=== PATIENT | female | born 1955 | race Caucasian/White ===

== ENCOUNTER → 2017-01-05 | Outpatient (CLI) | payer OTHER ==
[2017-01-05 10:29] LABS: CH 27.8; CHCM 31.5; HCT 45.2 % (34.0-46.0); HDW 2.41; MCH 27.4 pg (25.0-35.0); MCHC 30.9 g/dL (31.0-37.0); MCV 88.7 fL (80.0-100.0); Mean Platelet Volume 7.4; RBC 5.09 m/uL (3.80-5.40); RDW 13.4 % (11.5-15.5); WBC 6.9 k/uL (3.8-10.6)
[2017-01-05 10:53] LABS: ALT 122 U/L (9-52); AST 63 U/L (14-36); Alkaline Phosphatase 168 U/L (38-126); Anion Gap 12 mmol/L; Blood Urea Nitrogen 10 mg/dL (7-17); Carbon Dioxide 26 mmol/L (22-30); Chloride 106 mmol/L (98-107); Cholesterol 233 mg/dL (<200); Glucose 151 mg/dL (74-99); HDL Cholesterol 51 mg/dL (40-60); Non-African American GFR(MDRD) >60 (>60 ml/min/1.73 sqM); Potassium 3.8 mmol/L (3.5-5.1); Sodium 144 mmol/L (137-145); Total Bilirubin 0.3 mg/dL (0.2-1.3); Total Protein 7.1 g/dL (6.3-8.2)
[2017-01-05 12:35] LABS: Hemoglobin A1C 6.9 % (4.2-6.1)
== END ==
LOC: LABWHC1 10:12
PROVIDERS: ATTEND Family Medicine
DX: E66.3 Overweight (principal); E56.9 Vitamin deficiency, unspecified
CPT/HCPCS: 36415; 80053; 80061; 82306; 82626; 83036; 84403; 84443; 85027

== ENCOUNTER 2021-09-18 12:55 | Inpatient (IN) | payer OTHER ==
[2021-09-18] MEDS ORDERED: DEXAMETHASONE SOD PHOSPHATE 4 MG/ML 1 ML VIAL IV ONE (13:20)
[2021-09-18] MEDS ORDERED: ONDANSETRON 4 MG/2 ML VIAL IVP ONE ×2 (13:20→17:03)
[2021-09-18] MEDS ORDERED: LACTATED RINGERS 1,000 ML IV ONE ×2 (13:42→16:01)
[2021-09-18] MEDS ORDERED: hydrALAZINE HCL 20 MG/ML 1 ML VIAL IVP ONE (14:03)
[2021-09-18] MEDS ORDERED: NALOXONE 0.4 MG/ML 1 ML VIAL IV PRN (14:17)
[2021-09-18 14:18] LABS: African American GFR (CKD) >90 (>60 ml/min/1.73 sqM); Anion Gap 9 mmol/L; Blood Urea Nitrogen 13 mg/dL (7-17); Calcium 9.3 mg/dL (8.4-10.2); Carbon Dioxide 25 mmol/L (22-30); Chloride 105 mmol/L (98-107); Glucose 101 mg/dL (74-99); Non-African American GFR(CKD) >90 (>60 ml/min/1.73 sqM); Potassium 4.2 mmol/L (3.5-5.1); Sodium 139 mmol/L (137-145)
[2021-09-18 14:27] LABS: Basophils % (A) 1 %; Eosinophils # (A) 0.1 k/uL (0-0.7); Eosinophils % (A) 1 %; HCT 39.8 % (34.0-46.0); HGB 12.5 gm/dL (11.4-16.0); Lymphocytes # (A) 1.9 k/uL (1.0-4.8); Lymphocytes % (A) 24 %; MCH 28.5 pg (25.0-35.0); MCHC 31.5 g/dL (31.0-37.0); MCV 90.6 fL (80.0-100.0); Mean Platelet Volume 7.6; Monocytes # (A) 0.4 k/uL (0-1.0); Monocytes % (A) 5 %; Neutrophils # (A) 5.5 k/uL (1.3-7.7); Neutrophils % (A) 68 %; Platelet Count 192 k/uL (150-450); RDW 13.1 % (11.5-15.5); WBC 8.1 k/uL (3.8-10.6)
[2021-09-18] MEDS ORDERED: HYDROmorphone 0.2 MG/1 ML SYRINGE IVP PRN (14:28)
[2021-09-18] MEDS ORDERED: MAGNESIUM HYDROXIDE 2,400 MG/10 ML CUP PO PRN (14:28)
[2021-09-18] MEDS ORDERED: HYDROmorphone 0.5 MG/0.5 ML SYRINGE IVP PRN (14:28)
[2021-09-18] MEDS ORDERED: ROCURONIUM 10 MG/ML (5 ML VIAL) IV ONE (15:00)
[2021-09-18] MEDS ORDERED: SUCCINYLCHOLINE CHLORIDE 100 MG/5 ML SYR IV ONE (15:00)
[2021-09-18] MEDS ORDERED: GLYCOPYRROLATE 0.2 MG/ML 2 ML VIAL ONE (15:00)
[2021-09-18] MEDS ORDERED: PROPOFOL 10 MG/ML 20 ML VIAL IV ONE (15:00)
[2021-09-18] MEDS ORDERED: LIDOCAINE 1% INJ 10MG/ML (20 ML MDV) ONE (15:00)
[2021-09-18] MEDS ORDERED: fentaNYL (PF) 50 MCG/ML 2 ML AMP ONE (15:00)
[2021-09-18] MEDS ORDERED: MIDAZOLAM 2 MG/2 ML VIAL ONE (15:00)
[2021-09-18] MEDS ORDERED: NEOSTIGMINE 1 MG/ML 10 ML VIAL ONE (15:00)
[2021-09-18] MEDS ORDERED: PHENYLEPHRINE-0.9% NACL SYG 1,000 MCG/10 ML SYRINGE ONE (15:00)
[2021-09-18] MEDS ORDERED: KETAMINE 10 MG/ML 20 ML VIAL ONE (15:00)
--- NOTE | 2021-09-18 16:37 | P.OP ---
Date of Procedure: 09/18/21 Preoperative Diagnosis: Pathologic fracture left intratrochanteric hip Postoperative Diagnosis: Pathologic fracture left intratrochanteric hip Procedure(s) Performed: Closed intramedullary nailing left hip Implants: [employer] Intertan nail 125, 11.5 mm x 34 cm. [employer] Intertan integrated-interlocking lag screw, 95 mm lag screw, 90 mm compression screw. [employer] L-P screw, 5.0 mm x 35 mm. [employer] L-P screw, 5.0 mm x 32.5 mm. Anesthesia: GETA Surgeon: Lencho Herbert Reel Cart Operator #1: Stacie Dyer Estimated Blood Loss (ml): 300 Pathology: other (Reamings and bone sent for pathologic diagnosis) Condition: stable Disposition: PACU Indications for Procedure: This is a 65-year-old female that presented to my office with pain in her left hip. She has a history of breast cancer which was treated in the past with mastectomy. She has been asymptomatic until she recently fell began having more pain in her left hip. X-rays demonstrate a pathologic fracture of her left intratrochanteric hip. There is also significant disease in her pelvis and proximal femur. After discussing the surgical nonsurgical treatment options with her and her at length, I recommended an intramedullary nailing of her left femur in order to stabilize the fracture as well as sending the pathologic reamings for diagnosis. They're agreeable informed consent was obtained. Operative Findings: The operative findings are consistent with a pathologic fracture of the left proximal femur intertrochanteric region. Description of Procedure: The patient was seen in the preoperative area, consent was reviewed, and the operative site was marked with a skin marker. The surgical procedure was discussed at length with both the patient and the family at the bedside. All questions were answered to the best of my ability. The patient was brought to the operating room and placed on the fracture table. Anesthesia was administered by the anesthesia department. 2 g of Ancef were administered intravenously. The patient was placed supine on the fracture table with the fractured extremity in traction boot. The other extremity was placed in a well leg mathew and the bony prominences were well padded. A universal timeout was then performed which confirmed the patient's name, surgical site, ALLERGIES, and consent. Fracture reduction was performed with a traction and abduction maneuver which was confirmed with fluoroscopy, both AP and lateral views.. After reduction was performed, the extremity was then prepped with ChloraPrep solution and draped in the usual sterile fashion. Utilizing fluoroscopy to identify the tip of the greater trochanter, a 3 cm longitudinal incision was made just proximal to the greater trochanter. Incision was carried through the fascia to the tip of the greater trochanter. Utilizing a curved awl, the entry point was created at the tip of the greater trochanter and centralized in the AP and lateral planes. These locations were confirmed by fluoroscopy. A guidewire was then inserted down the medullary canal. The length of the nail was then measured off the guidewire. Sequentially reaming of the femur was performed to 13 mm distally and 17 mm proximally with the channel reamer. The reamings were sent for pathologic diagnosis. After reaming, appropriate size nail was inserted over the guidewire. The nail was inserted to the appropriate depth and the guidewire was removed. Placement of the yamila was confirmed with both AP and lateral fluoroscopic views. The lag screw drill sleeve was placed in the jig and a small skin incision was made on the lateral aspect of the leg and the lag screw drill sleeve was locked into the guide. The 3.2 mm guide pin sleeve was inserted through the lag screw drill sleeve down to bone. A 3.2 mm distally threaded guidewire was inserted through the guide pin sleeve. The guidewire was inserted in the desired position in the femoral head, both anterior and posterior. The lag screw length cage was inserted over the guidepin to the back of the lag screw drill sleeve. Lag screw length was then measured from the cage. Next, the 7.0 mm compression screw starter drill was inserted in the lag screw drill sleeve beneath the guidepin. The compression screw starter drill was advanced under power until it abutted the back and of the lag screw drill sleeve. The 7.0 mm compression screw drill was inserted through the lag screw drill sleeve into the hole created by the compression screw starter drill. This was advanced under fluoroscopy to a depth 5 mm less and the measurement taken for the guidepin. The compression screw drill was removed and the antirotation bar was inserted into the same hole. The 3.2 mm guide pin sleeve was then removed from the drill guide. The lag screw drill was then inserted to a depth that was measured by the lag screw gauge. This was done under fluoroscopy. The lag screw was inserted over the guidewire to the appropriate depth using fluoroscopy. Traction was then released. The antirotation bar was then removed and the compression screw was advanced through the lag screw drill sleeve beneath the lag screw. This was advanced to the appropriate compression was achieved. The proximal drill guide was then removed. Attention was then directed distally for the freehand locking screws. Fluoroscopy was used to locate the incision sites for the distal locking screws. Skin incision was made down to bone. Next, using freehand technique 2 distal locking screws were then placed. Placement of the screws was confirmed with both AP and lateral fluoroscopic x-rays. Final fluoroscopic x-rays that obtained.. The wounds were then irrigated copiously with saline solution. Fascia was closed with 0-Vicryl. Subcutaneous tissues were closed with 2-0 Vicryl and the skin was closed with jeffrey. Sterile dressings were applied. The patient was transported to the recovery room in stable condition. The commissary assistant BRENT Herman was required due the complexity of surgery the need for skilled certified surgical assistant for positioning draping retraction and fracture reduction.
[2021-09-18] MEDS ORDERED: HYDROmorphone 0.5 MG/0.5 ML SYRINGE IVP ONE ×2 (17:16→17:55)
[2021-09-18] MEDS ORDERED: KETOROLAC 15 MG/ML 1 ML VIAL IVP ONE (17:20)
--- NOTE | 2021-09-18 17:23 | XR ---
EXAMINATION TYPE: XR femur LT, FL guidance operating room DATE OF EXAM: 09/18/2021 CLINICAL HISTORY: Hardware placement TECHNIQUE: Fluoroscopic-guided left femur fixation. FINDINGS: Fluoroscopic guidance was provided during the procedure. A total of 1 minute and 40 second s of fluoroscopic time was utilized during the procedure and 4 spot images were acquired. IMPRESSION: As Above.
--- NOTE | 2021-09-18 17:52 | XR ---
EXAMINATION TYPE: XR Femur LT 1 View DATE OF EXAM: 09/18/2021 COMPARISON: NONE HISTORY: Postop TECHNIQUE: 2 views FINDINGS: There are multiple lateral skin jeffrey. There is intramedullary yamila and transverse screw f ixing the intertrochanteric fracture of the left femur. Components are in good position. IMPRESSION: No complicating process seen.
[2021-09-18] MEDS: HYDROcodone/APAP 7.5-325MG 1 EACH TAB PO PRN (19:33)
[2021-09-18] MEDS: SENNOSIDES-DOCUSATE SODIUM 1 EACH TAB PO SCH (20:56)
[2021-09-18] MEDS: HYDROmorphone 0.5 MG/0.5 ML SYRINGE IVP PRN (20:56)
[2021-09-18] MEDS: SODIUM CHLORIDE 0.9% 1,000 ML IV SCH (22:29)
[2021-09-19] MEDS: HYDROmorphone 0.5 MG/0.5 ML SYRINGE IVP PRN ×3 (00:36→21:55)
[2021-09-19] MEDS: ONDANSETRON 4 MG/2 ML VIAL IVP PRN (06:25)
[2021-09-19] MEDS: APIXABAN 2.5 MG TABLET PO SCH ×2 (09:14→20:12)
[2021-09-19 09:16] LABS: Basophils # (A) 0.01 X 10*3/uL (0.00-0.10); Basophils % (A) 0.1 %; Eosinophils # (A) 0 X 10*3/uL (0.04-0.35); Eosinophils % (A) 0 %; HCT 24.8 % (37.2-46.3); HGB 7.4 g/dL (12.0-15.0); Immature Grans, Automated 0.4 %; Lymphocytes # (A) 1.54 X 10*3/uL (0.90-5.00); Lymphocytes % (A) 13.8 %; MCHC 29.8 g/dL (32.0-37.0); MCV 93.9 fL (80.0-97.0); Mean Platelet Volume 10.6 fL (9.5-12.2); Monocytes # (A) 1.15 X 10*3/uL (0.20-1.00); Monocytes % (A) 10.3 %; NRBC Per 100 WBC 0 /100 WBCS (0.0-0.0); Neutrophils # (A) 8.45 X 10*3/uL (1.80-7.70); Neutrophils % (A) 75.4 %; Platelet Count 180 X 10*3/uL (140-440); RBC 2.64 X 10*6/uL (4.10-5.20); RDW 13.2 % (11.5-14.5)
[2021-09-19] MEDS: HYDROcodone/APAP 7.5-325MG 1 EACH TAB PO PRN ×2 (11:16→20:19)
[2021-09-19] MEDS: SODIUM CHLORIDE 0.9% 1,000 ML IV SCH ×2 (11:17→20:14)
--- NOTE | 2021-09-19 12:47 | P.PN ---
Subjective Progress Note Date: 09/19/21 This is a 65-year-old female who is status post intramedullary nailing of the left hip. This is postoperative day #1 and patient is seen and evaluated at bedside today with Dr. Herbert. Patient states that her left hip is sore today and she has not had a chance to work with physical therapy yet. Objective - Vital Signs Vital signs: Vital Signs Temp 99.3 F 09/19/21 12:10 Pulse 102 H 09/19/21 12:10 Resp 16 09/19/21 12:10 BP 99/67 09/19/21 12:10 Pulse Ox 95 09/19/21 04:37 Intake & Output 09/18/21 09/19/21 09/19/21 18:59 06:59 18:59 Intake Total 1250 880 180 Output Total 300 1420 500 Balance 950 -540 -320 Weight 61.2 kg Intake: IV 1250 Intake, IV Titration 880 Amount Sodium Chloride 0.9% 1, 780 000 ml @ 65 mls/hr IV . [id number] [facility] Rx#:[id number] ceFAZolin 2 gm In Sodium 100 Chloride 0.9% 50 ml @ 100 mls/hr IVPB Q8H [facility] Rx#: [id number] Oral 180 Output: Urine 710 500 Post Void Residual 710 Estimated Blood Loss 300 Other: Voiding Method Self-Catheterization - Exam Vital signs are stable. Patient is in no acute distress and is alert and oriented 3. Calf is soft and nontender to palpation. Dressings are intact with mild serosanguineous drainage present. Patient has full foot and ankle mo tion without pain or difficulty. Sensation intact. Neurovascular status and circulatory status are intact. - Labs CBC & Chem 7: 09/19/21 06:11 09/18/21 13:35 Labs: Abnormal Lab Results - Last 24 Hours (Table) 09/18/21 09/19/21 Range/Units 13:35 06:11 WBC 11.20 H (4.50-10.00) X 10*3/uL RBC 2.64 L (4.10-5.20) X 10*6/uL Hgb 7.4 L (12.0-15.0) g/dL Hct 24.8 L (37.2-46.3) % MCHC 29.8 L (32.0-37.0) g/dL Immature Gran # 0.05 H (0.00-0.04) X 10*3/uL Neutrophils # 8.45 H (1.80-7.70) X 10*3/uL Monocytes # 1.15 H (0.20-1.00) X 10*3/uL Eosinophils # 0 L (0.04-0.35) X 10*3/uL Glucose 101 H (74-99) mg/dL Assessment and Plan (1) Pathological fracture of left femur Current Visit: Yes Status: Acute Code(s): M84.452A - PATHOLOGICAL FRACTURE, LEFT FEMUR, INIT ENCNTR FOR FRACTURE SNOMED Code(s): 186354359 Plan: Continue routine postop care and pain control. Continue anticoagulation with Eliquis. 50% weightbearing to the left lower extremity. Appreciate input from internal medicine and oncology. Anticipate discharge home with homecare in the next 24-48 hours.
[2021-09-19] MEDS ORDERED: diphenhydrAMINE 50 MG/ML 1 ML VIAL IVP STA (19:37)
[2021-09-19] MEDS ORDERED: methylPREDNISolone SOD SUCCI 125 MG/2 ML VIAL IV STA (19:37)
[2021-09-19] MEDS ORDERED: FAMOTIDINE 20 MG/2 ML VIAL IV STA (19:37)
--- NOTE | 2021-09-19 19:54 | P.CONS ---
History of Present Illness - Reason for Consult Consult date: 09/19/21 pathological fracture Requesting physician: Lencho Herbert - Chief Complaint lt hip fracture - History of Present Illness Mrs. Pereira is a 65-year-old female patient who was initially seen in the fall of 2014 by Medical Oncology. She noted a small lump on the inner lower portion of her left breast in the fall of 2013. She did not get it evaluated until 01/21 when she noticed that the lump was definitely bigger, there were overlying skin changes as well as inversion of the nipple. Core biopsy, positive for invasive ductal carcinoma. Tumor was felt to be large, concerns for skin involvement. She was referred to Dr. Chen. Patient had mammogram and ultrasound 02/10/15 and was still pending results from that as well as ER/CO/HER-2/yovnne status on biopsy when seen. It was recommended that she have staging PET or CT/NMBS but, despite recommendations, patient decided to proceed with immediate surgery with bilateral mastectomy. She had surgery 02/18/15 with no complications. The right breast was negative. The left revealed a 3.5 cm IDC, no nodes detected despite removal of level I axillary contents. She agreed to postop imaging, CT CAP and NM bone scan were negative. Final staging T2 Nx M0. Ultimately she was found to be hormone receptor positive, HER-2 negative, no metastases. Adjuvant chemotherapy was recommended, with posttreatment axillary radiation followed by hormonal manipulation. Patient refused the same and has not followed up with either medical oncology or surgery, last seen 03/24. Patient is presenting with left hip pain, she states that she slipped on the ice 08/09/21. The pain has been persistent. She has been seen by orthopedics and had repair of the hip fracture, specimen sent for evaluation. She denies any weight loss, she had c ovid July 2019, she states she is also in the omicron variant. Patient is a clinical trials nurse, she is looking for staging and a consult of what is happening. She denies any other complaints on a 14 point review of systems. Review of Systems 14 point review of systems is negative except as stated in HPI Past Medical History Past Medical History: Cancer, Deep Vein Thrombosis (DVT), GERD/Reflux Additional Past Medical History / Comment(s): VERTIGO, HX OF DVT'S IN LEGS ( FROM CONTROL PILLS), HX OF KIDNEY STONES, SLIDING HIATAL HERNIA, HEPATITIS A (1989), DIAGNOSED WITH BREAST CANCER 01/2015, HX OF POLYNEPHRITIS & UTIS MULTIPLE TIMES. History of Any Multi-Drug Resistant Organisms: None Reported Past Surgical History: Adenoidectomy, Appendectomy, Hysterectomy, Tonsillectomy Additional Past Surgical History / Comment(s): CATARACT RT EYE, KIDNEY SURG FOR STONES & TORN URETER. , OOPHORECTOMY Past Anesthesia/Blood Transfusion Reactions: Previous Problems w/ Anesthesia, Family History of Problems w/ Anesthesia, Motion Sickness Additional Past Anesthesia/Blood Transfusion Reaction / Comm: STATES "TERRIBLE " NAUSEA AND VOMITING. TRYS TO PULL OUT IV'S AND TUBES AND TRYS TO GET UP AND LEAVE. PTS MOTHER HAS SAME REACTION TO ANESTHESIA. Past Psychological History: No Psychological Hx Reported Past Alcohol Use History: None Reported Past Drug Use History: None Reported - Past Family History Father Family Medical History: CVA/TIA, Hypertension Mother Family Medical History: No Reported History Medications and Allergies Home Medications Medication Instructions Recorded Confirmed Type Ciclopirox Olamine [Loprox 0.77% 1 applic TOPICAL BID 09/19/21 09/19/21 History cream] Esomeprazole Magnesium [NexIUM 20 mg PO DAILY 09/19/21 09/19/21 History 24Hr] Allergies Allergy/AdvReac Type Severity Reaction Status Date / Time Iodinated Contrast Media Allergy Swelling Verified 09/19/21 06:29 [Iodinated Contrast- Oral of face and IV Dye] and lips levofloxacin [From Levaquin] Allergy Swelling Verified 09/19/21 06:29 of face and lips amoxicillin trihydrate AdvReac Nausea & Verified 09/19/21 06:29 [From Augmentin] Vomiting gabapentin AdvReac "I felt Verified 09/19/21 06:29 like I was in a stupor and could not function at all metoclopramide HCl AdvReac Hallucinati Verified 09/19/21 06:29 [From Reglan] ons potassium clavulanate AdvReac Nausea & Verified 09/19/21 06:29 [From Augmentin] Vomiting Physical Exam Vitals: Vital Signs Temp Pulse Pulse Resp BP Pulse Ox 09/19/21 07:52 99 F 101 H 17 102/64 09/19/21 04:37 98.1 F 106 H 16 117/71 95 09/18/21 21:40 91 97/62 100 09/18/21 20:40 100 104/68 100 09/18/21 20:20 99 91/57 100 09/18/21 20:00 18 09/18/21 19:40 98 104/69 100 09/18/21 19:25 98 129/75 100 09/18/21 18:55 97.4 F L 94 18 109/68 99 09/18/21 17:50 78 18 117/55 100 09/18/21 17:35 77 16 119/61 100 09/18/21 17:20 78 16 105/56 100 09/18/21 17:05 80 16 96/55 98 09/18/21 16:50 97.2 F L 81 16 82/44 98 09/18/21 14:29 184/84 09/18/21 13:45 99.0 F 82 18 214/99 99 Intake and Output 09/18/21 09/19/21 09/19/21 22:59 06:59 14:59 Intake Total 650 880 Output Total 300 1420 Balance 350 -540 Intake: IV 650 Intake, IV Titration 880 Amount Sodium Chloride 0.9% 1, 780 000 ml @ 65 mls/hr IV . [id number] [facility] Rx#:[id number] ceFAZolin 2 gm In Sodium 100 Chloride 0.9% 50 ml @ 100 mls/hr IVPB Q8H [facility] Rx#: [id number] Output: Urine 710 Post Void Residual 710 Estimated Blood Loss 300 Other: Voiding Method Self-Catheterization - Constitutional General appearance: average body habitus, cooperative, no acute distress - EENT Eyes: anicteric sclerae, EOMI ENT: hearing grossly normal, normal oropharynx - Neck Neck: lymphadenopathy - Respiratory Respiratory: bilateral: CTA - Cardiovascular Rhythm: regular Heart sounds: normal: S1, S2 Abnormal Heart Sounds: no systolic murmur, no diastolic murmur, no rub, no S3 Gallop, no S4 Gallop, no click, no other leg Peripheral Edema: right: None, left: Trace - Gastrointestinal General gastrointestinal: no absent bowel sounds, no decreased bowel sounds, no distended, no hepatomegaly, no hyperactive bowel sounds, normal bowel sounds, no organomegaly, no rigid, no scaphoid, soft, no splenomegaly, no tenderness, no umbilical hernia, no ventral hernia - Integumentary Integumentary: normal - Neurologic Neurologic: CNII-XII intact - Musculoskeletal left lower extremity hip incision clean, dry, and intact, no unusual bruising, no signs or symptoms of bleeding or infection - Psychiatric Psychiatric: A&O x's 3, appropriate affect, intact judgment & insight Results CBC & Chem 7: 09/19/21 06:11 09/18/21 13:35 Labs: Abnormal Lab Results - Last 24 Hours (Table) 09/18/21 Range/Units 13:35 Glucose 101 H (74-99) mg/dL Assessment and Plan (1) Pathological fracture of left femur Current Visit: Yes Status: Acute Priority: High Code(s): M84.452A - PATHOLOGICAL FRACTURE, LEFT FEMUR, INIT ENCNTR FOR FRACTURE SNOMED Code(s): 059337633 (2) Breast cancer Current Visit: Yes Status: Chronic Priority: High Code(s): C50.919 - MALIGNANT NEOPLASM OF UNSP SITE OF UNSPECIFIED FEMALE BREAST SNOMED Code(s): 669818774 Plan: Pending pathology results from repair of the left hip fracture CT CAP and NM bone scan ordered for restaging. Tumor markers ordered. Consult to Radiation Oncology for post femur fracture radiation Agree with Orthopedics post op anticoagulation Dr. Chen answered all of patient's questions to her satisfaction. We will provide her with the results of metastatic work up and await her decisions. Doctor attests: I performed a history and physical examination of this patient, developed impression and plan of care, discussed with dictator. I agree with dictators note, documented as a scribe.
[2021-09-19] MEDS: SENNOSIDES-DOCUSATE SODIUM 1 EACH TAB PO SCH (20:12)
--- NOTE | 2021-09-19 20:30 | CONS ---
CONSULTATION REASON FOR CONSULTATION: Advice regarding history of DVT and other issues, requested by Orthopedic Surgery. HISTORY OF PRESENT ILLNESS: This 65-year-old woman with a past medical history of DVT and history of GERD was admitted with a pathologic fracture of the left femur. The patient is being followed by multiple consultants. Patient underwent intramedullary nailing. The patient has a history of breast cancer, also. Hemoglobin was found to be 7.4. PAST MEDICAL HISTORY: History of breast cancer, history of DVT. HOME MEDICATIONS: Reviewed. They include Nexium and Loprox. Doses are reviewed. ALLERGIES: Reviewed. ALLERGIES INCLUDE IODINATED CONTRAST DYE. FAMILY HISTORY: No history of heart disease or strokes in the family. SOCIAL HISTORY: No history of smoking. No history of alcohol intake. REVIEW OF SYSTEMS: Fourteen-point review of systems negative except as mentioned earlier. PHYSICAL EXAMINATION: Pulse is 102, blood pressure 99/60, respirations 16. NECK: No jugular venous distention. CARDIOVASCULAR: S1, S2 muffled. RESPIRATION: Clear to auscultation. ABDOMEN: Soft, nontender. LEGS: Status post surgery. NERVOUS SYSTEM: No focal deficit. SKIN: No ulcer, rash, bleeding. JOINTS: No active deforming arthropathy. LABS: Reviewed. ASSESSMENT: 1. Left femur pathologic fracture, status post intramedullary nailing. 2. History of breast cancer. 3. History of deep vein thrombosis. RECOMMENDATIONS AND DISCUSSION: In this 65-year-old woman who presented with multiple medical issues, at this time I recommend to continue the current medications, continue symptomatic treatment. Resume the home medications. DVT prophylaxis. The patient is on Eliquis 2.5 mg p.o. b.i.d. Closely follow with Hematology/Oncology. We will follow the patient closely with you. Repeat labs are recommended. Monitor hemoglobin closely. Thank you, Dr. Herbert, for letting us participate in the care of this patient. MMODL / IJN: [id number] /
[2021-09-20] MEDS: HYDROcodone/APAP 7.5-325MG 1 EACH TAB PO PRN ×2 (06:10→17:35)
[2021-09-20] MEDS: BARIUM SULFATE 450 ML ORAL.SUSP BOTTLE PO PRN ×2 (07:50→11:52)
[2021-09-20] MEDS: APIXABAN 2.5 MG TABLET PO SCH (08:09)
[2021-09-20 10:55] LABS: Acanthocytes 2+; Basophils # (A) 0.03 X 10*3/uL (0.00-0.10); Basophils % (A) 0.3 %; Eosinophils # (A) 0.03 X 10*3/uL (0.04-0.35); Eosinophils % (A) 0.3 %; HCT 21.2 % (37.2-46.3); HGB 6.2 g/dL (12.0-15.0); Immature Grans, Automated 0.5 %; Lymphocytes # (A) 2.24 X 10*3/uL (0.90-5.00); Lymphocytes % (A) 22.2 %; MCH 28.1 pg (27.0-32.0); MCHC 29.2 g/dL (32.0-37.0); MCV 95.9 fL (80.0-97.0); Macrocytosis (M) 2+; Mean Platelet Volume 10.6 fL (9.5-12.2); Monocytes # (A) 1.17 X 10*3/uL (0.20-1.00); Monocytes % (A) 11.6 %; NRBC Per 100 WBC 0 /100 WBCS (0.0-0.0); Neutrophils # (A) 6.59 X 10*3/uL (1.80-7.70); Neutrophils % (A) 65.1 %; Platelet Count 138 X 10*3/uL (140-440); RBC 2.21 X 10*6/uL (4.10-5.20); RDW 13.2 % (11.5-14.5); WBC 10.11 X 10*3/uL (4.50-10.00)
[2021-09-20] MEDS: HYDROmorphone 0.5 MG/0.5 ML SYRINGE IVP PRN (11:00)
[2021-09-20 11:10] LABS: African American GFR (CKD) 98.2 (60.0-200.0); Anion Gap 10.8 mmol/L (10.00-18.00); BUN/Creat Ratio 20.08 Ratio (12.00-20.00); Blood Urea Nitrogen 14.9 mg/dL (9.0-27.0); Calcium 8.1 mg/dL (8.7-10.3); Carbon Dioxide 21.2 mmol/L (20.0-27.5); Non-African American GFR(CKD) 84.7 (60.0-200.0); Potassium 3.8 mmol/L (3.5-5.5)
--- NOTE | 2021-09-20 12:17 | P.PN ---
Subjective Progress Note Date: 09/20/21 Principal diagnosis: Left femur fracture, pathologic. Metastatic breast cancer. This is a 65-year-old female who is status post intramedullary nailing of the left hip. This is postoperative day #2 and patient is seen and evaluated at bedside today.The patient states that her left hip is sore today. She has had quite a bit of drainage from middle incision. The patient has been seen by oncology. Vital signs and labs are stable. Labs reveal that she likely has metastatic breast cancer. Objective - Vital Signs Vital signs: Vital Signs Temp 99.4 F 09/20/21 07:28 Pulse 104 H 09/20/21 07:28 Resp 15 09/20/21 07:28 BP 102/62 09/20/21 07:28 Pulse Ox 93 L 09/20/21 04:41 Intake & Output 09/19/21 09/20/21 09/20/21 18:59 06:59 18:59 Intake Total 1060 Output Total 500 800 450 Balance 560 -800 -450 Intake: Oral 1060 Output: Urine 500 800 450 Other: Voiding Method Self-Catheterization Indwelling Catheter Indwelling Catheter - Exam This is a pleasant 65-year-old female in no acute distress. She is alert and oriented 3. Exam of the left leg reveals significant sanguinous drainage from the mid femoral incision. Her Optifoam dressing is saturated. The proximal and distal incisions have a small amount of drainage. She has full foot and ankle motion without difficulty or pain. Neurovascular status to the lower extremity is intact. - Labs CBC & Chem 7: 09/20/21 06:07 09/20/21 06:07 Labs: Abnormal Lab Results - Last 24 Hours (Table) 09/19/21 Range/Units 06:11 CA 15-3 Antigen 1182.0 H (0.0-32.3) U/mL Assessment and Plan (1) Pathological fracture of left femur Current Visit: Yes Status: Acute Priority: High Code(s): M84.452A - P ATHOLOGICAL FRACTURE, LEFT FEMUR, INIT ENCNTR FOR FRACTURE SNOMED Code(s): 193983760 (2) Breast cancer Current Visit: Yes Status: Chronic Priority: High Code(s): C50.919 - MALIGNANT NEOPLASM OF UNSP SITE OF UNSPECIFIED FEMALE BREAST SNOMED Code(s): 902138518 Plan: The clinical findings are discussed with the patient. The proximal and middle incision dressings are changed today and a compressive dressing is placed. There is very minimal active drainage at this time. If drainage is decreased by tomorrow we may replace with Optifam. Continue current orthopedic care and physical therapy.
[2021-09-20] MEDS: PANTOPRAZOLE 40 MG TABLET PO SCH (14:46)
--- NOTE | 2021-09-20 15:36 | NM ---
EXAMINATION TYPE: NM bone scan whole body DATE OF EXAM: 09/20/2021 COMPARISON: NONE HISTORY: Breast cancer Delayed whole-body scanning was performed following the injection of 23.7 mCi Tc 99m MDP. Images wer e acquired 5 hours post injection. FINDINGS: Extensive multifocal areas of radiotracer uptake are present throughout the axial and appendicular [place] compatible with metastatic disease. Suspicious areas include the following: Mid right humerus diaphysis. Couple of punctate areas within the left humeral diaphysis. Scattered multiple areas of uptake within multiple bilateral ribs. Multip le scattered areas within the upper thoracic lower thoracic upper lumbar spine through the proximal s acrum. Multiple areas within the left greater trochanteric region left hip. Uptake within the acetabu lar regions on the right hip. Multiple punctate areas of calvarial uptake are present suggestive for metastasis. IMPRESSION: 1. Extensive new areas of uptake within the axial and appendicular skeleton discussed above.
--- NOTE | 2021-09-20 15:53 | PN ---
PROGRESS NOTE DATE OF SERVICE: 09/20/2021 This 65-year-old woman who was admitted with left femoral pathologic fracture is awaiting biopsy. Patient has history of breast cancer. CEA is elevated. No chest pain. No palpitations. The patient has some bleeding at the site also. Hemoglobin is 6.2. Transfusion is being arranged. Past medical history reviewed. REVIEW OF SYSTEMS: CARDIOVASCULAR SYSTEM: No angina, palpitations. RESPIRATORY SYSTEM: No cough, hemoptysis. GI: As mentioned earlier. : As mentioned earlier. NERVOUS SYSTEM: No numbness, weakness. CURRENT MEDICATIONS: Reviewed. They include Xanax, [place], Eliquis. Doses and other medications are reviewed. PHYSICAL EXAMINATION: Pulse is 93, blood pressure 170/60, respirations 17. HEENT: Conjunctivae pale. Oral mucosa pale. CARDIOVASCULAR: S1, S2 muffled. RESPIRATION: Breath sounds diminished at the bases. A few scattered rhonchi. ABDOMEN: Soft. LEGS: Left leg swelling and pain with some oozing also present. LABS: Hemoglobin 6.2. Other labs are noted. Platelets are 138. ASSESSMENT: 1. Left femur pathological fracture, status post intramedullary nailing and biopsy. 2. History of breast cancer. 3. History of deep vein thrombosis. 4. Oozing from the surgical site. 5. Anemia, symptomatic. RECOMMENDATIONS AND DISCUSSION: I recommend to continue current medications, continue with the monitoring, symptomatic treatment. I recommend two units transfusion with Lasix 20 after each transfusion. Repeat labs. Closely follow with Hematology/Oncology. Otherwise, hold antiplatelet agents at this time. We will check PT, PTT, INR also. Prognosis is guarded because of multiple complex medical issues. Discussed at length with the patient. MMODL / IJN: [id number] /
[2021-09-20 16:47] LABS: Partial Thromboplastin Time 23.2 sec (22.0-30.0); Prothrombin Time 10.9 sec (9.0-12.0)
--- NOTE | 2021-09-20 17:13 | P.PN ---
Subjective Progress Note Date: 09/20/21 Principal diagnosis: Pathological fracture, history breast cancer In follow-up today patient is noting moderate bleeding from her left lateral hip incision, she states the dressing has been changed 3-4 times and when seen the dressing is saturated. She is denying any other bleeding. She is not complaining of uncontrolled pain. She is being premedicated for iodine allergy for her scans later today. Objective - Vital Signs Vital signs: Vital Signs Temp 99 F 09/20/21 12:10 Pulse 93 09/20/21 12:10 Resp 16 09/20/21 12:10 BP 117/67 09/20/21 12:10 Pulse Ox 93 L 09/20/21 04:41 Intake & Output 09/19/21 09/20/21 09/20/21 18:59 06:59 18:59 Intake Total 1060 240 Output Total 500 800 850 Balance 560 -800 -610 Intake: Oral 1060 240 Output: Urine 500 800 850 Other: Voiding Method Self-Catheterization Indwelling Catheter Indwelling Catheter - Constitutional General appearance: Present: average body habitus, cooperative, no acute distress - EENT Eyes: Present: anicteric sclerae, EOMI ENT: Present: hearing grossly normal - Respiratory Respiratory: bilateral: CTA - Cardiovascular Rhythm: regular Heart sounds: normal: S1, S2 - Gastrointestinal General gastrointestinal: Present: normal bowel sounds, soft - Musculoskeletal Musculoskeletal Comment(s): Left lateral thigh surgical incision dressing is saturated with blood, there is some blood noted on the sheets. Mild swelling, no unrealistic bruising at this time. Musculoskeletal: Present: strength equal bilaterally - Psychiatric Psychiatric: Present: A&O x's 3, appropriate affect, intact judgment & insight - Labs CBC & Chem 7: 09/20/21 06:07 09/20/21 06:07 Labs: Abnormal Lab Results - Last 24 Hours (Table) 09/19/21 09/20/21 09/20/21 Range/Units 06:11 06:07 06:07 WBC 10.11 H (4.50-10.00) X 10*3/uL RBC 2.21 L (4.10-5.20) X 10*6/uL Hgb 6.2 L* (12.0-15.0) g/dL Hct 21.2 L (37.2-46.3) % MCHC 29.2 L (32.0-37.0) g/dL Plt Count 138 L (140-440) X 10*3/uL Plt Count Comment DECREASED A Immature Gran # 0.05 H (0.00-0.04) X 10*3/uL Monocytes # 1.17 H (0.20-1.00) X 10*3/uL Eosinophils # 0.03 L (0.04-0.35) X 10*3/uL BUN/Creatinine Ratio 20.08 H (12.00-20.00) Ratio Calcium 8.1 L (8.7-10.3) mg/dL CA 15-3 Antigen 1182.0 H (0.0-32.3) U/mL Crossmatch 09/20/21 Range/Units 11:17 WBC (4.50-10.00) X 10*3/uL RBC (4.10-5.20) X 10*6/uL Hgb (12.0-15.0) g/dL Hct (37.2-46.3) % MCHC (32.0-37.0) g/dL Plt Count (140-440) X 10*3/uL Plt Count Comment Immature Gran # (0.00-0.04) X 10*3/uL Monocytes # (0.20-1.00) X 10*3/uL Eosinophils # (0.04-0.35) X 10*3/uL BUN/Creatinine Ratio (12.00-20.00) Ratio Calcium (8.7-10.3) mg/dL CA 15-3 Antigen (0.0-32.3) U/mL Crossmatch See Detail Assessment and Plan (1) Pathological fracture of left femur Current Visit: Yes Status: Acute Priority: High Code(s): M84.452A - PATHOLOGICAL FRACTURE, LEFT FEMUR, INIT ENCNTR FOR FRACTURE SNOMED Code(s): 945607937 (2) Breast cancer Current Visit: Yes Status: Chronic Priority: High Code(s): C50.919 - MALIGNANT NEOPLASM OF UNSP SITE OF UNSPECIFIED FEMALE BREAST SNOMED Code(s): 396914820 Plan: Pending pathology results from repair of the left hip fracture. ER/CT/Her2 studies will be performed on specimen CT CAP and NM bone scan ordered for restaging, she is being premedicated for an iodine allergy, scans a little later today Tumor markers ordered. CA-15-3 significantly elevated at 1182. CA-27-29 pending. Consult to Radiation Oncology for post femur fracture radiation. Did discuss case with Dr. Wills Hemoglobin dropped to 6.2 postop, bleeding noted at the incision site. Transfusing 1 unit of packed red blood cells. Did have nursing contact O rthopedics regarding postoperative anticoagulation, they are okay with holding. Eliquis will be held. DVT prophylaxis with heparin will be started. SCDs on. Cont CBC daily. Dr. Chen answered all of patient's questions to her satisfaction. We will provide her with the results as they become available. Doctor attests: I performed a history and physical examination of this patient, developed impression and plan of care, discussed with dictator. I agree with dictators note, documented as a scribe.
[2021-09-20] MEDS: SODIUM CHLORIDE 0.9% 1,000 ML IV SCH (19:03)
--- NOTE | 2021-09-20 19:27 | CT ---
EXAMINATION TYPE: CT ChestAbdPelvis w con DATE OF EXAM: 09/20/2021 COMPARISON: CT dated 03/14/2015 HISTORY: Recurrent breast cancer, restaging CT DLP: 698.6 mGycm Automated exposure control for dose reduction was used. CONTRAST: CT scan of the chest, abdomen and pelvis is performed with Oral Contrast and with IV Contrast, patien t injected with 100 mL of Isovue 300. FINDINGS: LUNGS: Moderate right-sided pleural effusion with complete collapse of the right lower lobe and obstr uction of the right bronchus intermedius. Underlying lesion within the right lower lobe cannot be exc luded. Right midlung zone nodule measuring 7 mm, not appreciated previously. Groundglass opacity and infiltration are seen at the posterior aspect of the right upper lobe. 2 mm nodule is seen in the rig ht lung apex, not appreciated previously. Left lower lobe superior segment 5 mm nodule, not appreciat ed previously. Atelectasis along the left oblique fissure. Minimal left pleural reaction. Patent trac hea and left main bronchus. MEDIASTINUM: Large subcarinal soft tissue lesion measuring 2.5 x 3.3 cm with extension along the ante rior aspect of the [place] as well as the left paratracheal location in the aortopulmonary window. The re is also extension into the right hilum and surrounding the bronchus intermedius causing its obstru ction. This is likely metastatic. Subcentimeter left hilar lymph node. No gross cardiomegaly. Scatter ed arterial atherosclerotic calcifications. No pericardial effusion. Right superior paratracheal lymp h node is also noted measuring 11 mm, not appreciated previously and likely metastatic. Left axillary lymphadenopathy measuring up to 2.2 cm. OTHER: Previous bilateral mastectomy. The esophagus is distended and filled with contrast probably d ue to compression by the described subcarinal mass versus reflux. Scattered lytic and sclerotic areas seen within the thoracic spine, left scapula and left humeral head, sternum as well as ribs likely m etastatic, kindly refer to bone scan results. LIVER/GB: Tiny hypodensity in the left hepatic lobe likely representing a hepatic cyst, appreciated p reviously. No other definite hepatic focal lesion identified. Unremarkable gallbladder. PANCREAS: Small and atrophic. SPLEEN: Stable accessory spleens. Subtle hypodense area at the inferior aspect of the spleen, possibl y artifactual. Otherwise unremarkable spleen. ADRENALS: No significant abnormality is seen. KIDNEYS: Few renal cysts without suspicious features, otherwise unremarkable kidneys. Air and Higgins c atheter are seen within the urinary bladder. BOWEL: Small sliding hiatal hernia, otherwise unremarkable stomach, duodenum and small bowel. No soledad ss colonic abnormality. REPRODUCTIVE ORGANS: Previous hysterectomy. No gross adnexal mass. LYMPH NODES: No greater than 1 cm abdominal or pelvic lymph nodes are appreciated. OSSEOUS STRUCTURES: Extensive osseous lesions are seen in the lumbar spine, pelvic bones and proximal femoral bones, likely metastatic, kindly correlate with bone scan results. OTHER: Extensive arterial atherosclerotic calcifications. Presacral fluid is noted. Left proximal fem oral fixation with adjacent soft tissue swelling, air and reactive fluid likely related to recent steve gical intervention. IMPRESSION: Newly seen scattered lung nodules with large mediastinal and right hilar mass as well as right superior paratracheal and left axillary lymphadenopathy likely representing metastatic disease. Extensive osseous lesions, likely metastatic. No gross metastatic disease seen in the abdomen or the pelvis otherwise. Recommend correlation with bone scan results. Other findings as described above.
[2021-09-20] MEDS: SENNOSIDES-DOCUSATE SODIUM 1 EACH TAB PO SCH (20:03)
[2021-09-20] MEDS: HEPARIN SODIUM,PORCINE/PF 5,000 UNIT/0.5 ML SYRINGE SQ SCH (20:03)
[2021-09-20] MEDS: ALPRAZolam 0.25 MG TAB PO PRN (20:13)
[2021-09-21] MEDS: HYDROcodone/APAP 7.5-325MG 1 EACH TAB PO PRN (04:19)
[2021-09-21] MEDS: SODIUM CHLORIDE 0.9% 1,000 ML IV SCH (04:22)
[2021-09-21] MEDS: HEPARIN SODIUM,PORCINE/PF 5,000 UNIT/0.5 ML SYRINGE SQ SCH ×2 (08:25→21:03)
[2021-09-21] MEDS: PANTOPRAZOLE 40 MG TABLET PO SCH (08:25)
[2021-09-21] MEDS: HYDROmorphone 0.5 MG/0.5 ML SYRINGE IVP PRN ×4 (08:30→21:05)
[2021-09-21 09:35] LABS: African American GFR (CKD) 105.4 (60.0-200.0); Anion Gap 9.5 mmol/L (10.00-18.00); BUN/Creat Ratio 16.71 Ratio (12.00-20.00); Blood Urea Nitrogen 11.7 mg/dL (9.0-27.0); Calcium 8.4 mg/dL (8.7-10.3); Carbon Dioxide 23.5 mmol/L (20.0-27.5); Non-African American GFR(CKD) 90.9 (60.0-200.0)
[2021-09-21 10:23] LABS: Basophils # (A) 0.01 X 10*3/uL (0.00-0.10); Basophils % (A) 0.1 %; Eosinophils # (A) 0.01 X 10*3/uL (0.04-0.35); Eosinophils % (A) 0.1 %; HCT 23.3 % (37.2-46.3); HGB 7.2 g/dL (12.0-15.0); Immature Grans, Automated 0.4 %; Lymphocytes # (A) 2.52 X 10*3/uL (0.90-5.00); Lymphocytes % (A) 20.6 %; MCHC 30.9 g/dL (32.0-37.0); MCV 90.7 fL (80.0-97.0); Mean Platelet Volume 11.1 fL (9.5-12.2); Monocytes # (A) 1.16 X 10*3/uL (0.20-1.00); Monocytes % (A) 9.5 %; NRBC Per 100 WBC 0 /100 WBCS (0.0-0.0); Neutrophils # (A) 8.47 X 10*3/uL (1.80-7.70); Neutrophils % (A) 69.3 %; Platelet Count 162 X 10*3/uL (140-440); RBC 2.57 X 10*6/uL (4.10-5.20); RDW 13.3 % (11.5-14.5); WBC 12.22 X 10*3/uL (4.50-10.00)
--- NOTE | 2021-09-21 10:50 | P.PN ---
Subjective Progress Note Date: 09/21/21 This is a 65-year-old female who is status post intramedullary nailing of the left hip. This is postoperative day #3 and patient is seen and evaluated at bedside today. Patient states that her incision is still draining. Patient states that she was able to walk 15 feet with physical therapy today and states that most of the pain she feels is in the groin. Objective - Vital Signs Vital signs: Vital Signs Temp 98.3 F 09/21/21 07:22 Pulse 89 09/21/21 07:22 Resp 18 09/21/21 07:22 BP 108/66 09/21/21 07:22 Pulse Ox 93 L 09/21/21 07:22 Intake & Output 09/20/21 09/21/21 09/21/21 18:59 06:59 18:59 Intake Total 240 610 Output Total 1050 1600 Balance -810 -990 Intake: Oral 240 300 Blood Product 0 310 Rc As-1 Unit 0 310 [id number] Output: Urine 1050 1600 Uretheral ([place]) 800 Other: Voiding Method Indwelling Catheter Indwelling Catheter - Exam Vital signs are stable. Patient is in no acute distress and is alert and oriented 3. Calf is soft and nontender to palpation. Compressive dressing is clean, dry and intact. Patient has full foot and ankle motion without pain or difficulty. Sensation intact. Neurovascular status and circulatory status are intact. - Labs CBC & Chem 7: 09/21/21 05:48 09/21/21 05:48 Labs: Abnormal Lab Results - Last 24 Hours (Table) 09/20/21 09/20/21 09/20/21 Range/Units 06:07 06:07 11:17 WBC 10.11 H (4.50-10.00) X 10*3/uL RBC 2.21 L (4.10-5.20) X 10*6/uL Hgb 6.2 L* (12.0-15.0) g/dL Hct 21.2 L (37.2-46.3) % MCHC 29.2 L (32.0-37.0) g/dL Plt Count 138 L (140-440) X 10*3/uL Plt Count Comment DECREASED A Immature Gran # 0.05 H (0.00-0.04) X 10*3/uL Monocytes # 1.17 H (0.20-1.00) X 10*3/uL Eosinophils # 0.03 L (0.04-0.35) X 10*3/uL Anion Gap (10.00-18.00) mmol/L BUN/Creatinine Ratio 20.08 H (12.00-20.00) Ratio Calcium 8.1 L (8.7-10.3) mg/dL Crossmatch See Detail 09/21/21 Range/Units 05:48 WBC (4.50-10.00) X 10*3/uL RBC (4.10-5.20) X 10*6/uL Hgb (12.0-15.0) g/dL Hct (37.2-46.3) % MCHC (32.0-37.0) g/dL Plt Count (140-440) X 10*3/uL Plt Count Comment Immature Gran # (0.00-0.04) X 10*3/uL Monocytes # (0.20-1.00) X 10*3/uL Eosinophils # (0.04-0.35) X 10*3/uL Anion Gap 9.50 L (10.00-18.00) mmol/L BUN/Creatinine Ratio (12.00-20.00) Ratio Calcium 8.4 L (8.7-10.3) mg/dL Crossmatch Assessment and Plan (1) Pathological fracture of left femur Current Visit: Yes Status: Acute Priority: High Code(s): M84.452A - PATHOLOGICAL FRACTURE, LEFT FEMUR, INIT ENCNTR FOR FRACTURE SNOMED Code(s): 399984063 Plan: Continue compressive dressing. Change as needed to keep clean and dry. Anticoagulation per internal medicine and oncology. 50% weightbearing to the left lower extremity. Appreciate input from internal medicine and oncology. Anticipate discharge home with homecare in the next 24-48 hours.
[2021-09-21] MEDS: ALPRAZolam 0.25 MG TAB PO PRN (11:43)
--- NOTE | 2021-09-21 13:22 | PN ---
PROGRESS NOTE DATE OF SERVICE: 09/21/2021 This 65-year-old woman who was admitted with left femoral pathological fracture complains of severe pain. Patient also had anemia, possibly blood loss. Patient has significant swelling of the left thigh also. No chest pain. No palpitation. PHYSICAL EXAMINATION: Pulse is 85, blood pressure 130/77, respiratory rate 18. Chest clear to auscultation. Cardiovascular system: S1, S2 normal. Abdomen: Soft, nontender. Legs: Significant swelling of the left thigh. Some pain and tenderness present. Some leakage also present which is addressed. LABS: Hemoglobin 7.2, white count is 12.22. CA15-3 not elevated. ASSESSMENT: 1. Left femoral pathologic fracture status post intramedullary nailing and biopsy. 2. History of breast cancer. 3. History of deep vein thrombosis. 4. Oozing from the surgical site. 5. Anemia symptomatic. RECOMMENDATIONS AND DISCUSSION: I recommend to continue current medications, management and symptomatic treatment. Monitor hemoglobin closely. Adjust the pain management. Closely follow with Orthopedic surgery. Overall prognosis guarded because of multiple complex medical issues. Await biopsy report. Further recommendations to follow. Discussed with the patient at length. See orders. MMODL / IJN: [id number] /
[2021-09-21] MEDS ORDERED: HYDROmorphone 0.5 MG/0.5 ML SYRINGE IVP STA (13:59)
--- NOTE | 2021-09-21 14:19 | P.PN ---
Subjective Progress Note Date: 09/21/21 Principal diagnosis: Pathological fracture, history breast cancer In follow-up today patient is experiencing severe pain post simulation for palliative radiation to repaired pathological fracture. Bleeding from incision is stable on DVT prophylaxis with heparin. Objective - Vital Signs Vital signs: Vital Signs Temp 98.5 F 09/21/21 11:44 Pulse 85 09/21/21 11:44 Resp 18 09/21/21 11:44 BP 130/77 09/21/21 11:44 Pulse Ox 99 09/21/21 11:44 Intake & Output 09/20/21 09/21/21 09/21/21 18:59 06:59 18:59 Intake Total 240 610 Output Total 1050 1600 Balance -810 -990 Intake: Oral 240 300 Blood Product 0 310 Rc As-1 Unit 0 310 [id number] Output: Urine 1050 1600 Uretheral ([place]) 800 Other: Voiding Method Indwelling Catheter Indwelling Catheter Indwelling Catheter - Constitutional General appearance: Present: average body habitus, cooperative, no acute distress - EENT Eyes: Present: anicteric sclerae, edentulous ENT: Present: hearing grossly normal - Respiratory Respiratory: bilateral: CTA - Cardiovascular Rhythm: regular Heart sounds: normal: S1, S2 Abnormal Heart Sounds: Absent: systolic murmur, diastolic murmur, rub, S3 Gallop, S4 Gallop, click, other - Peripheral edema leg Peripheral Edema: right: None, left: Trace - Gastrointestinal General gastrointestinal: Present: normal bowel sounds, soft - Neurologic Neurologic: Present: CNII-XII intact - Musculoskeletal Musculoskeletal Comment(s): LLE slightly weak from pain post op Musculoskeletal: Present: strength equal bilaterally - Psychiatric Psychiatric: Present: A&O x's 3, appropriate affect, intact judgment & insight - Labs CBC & Chem 7: 09/21/21 05:48 09/21/21 05:48 Labs: Abnormal Lab Results - Last 24 Hours (Table) 09/20/21 09/21/21 09/21/21 Range/Units 11:17 05:48 05:48 WBC 12.22 H (4.50-10.00) X 10*3/uL RBC 2.57 L (4.10-5.20) X 10*6/uL Hgb 7.2 L (12.0-15.0) g/dL Hct 23.3 L (37.2-46.3) % MCHC 30.9 L (32.0-37.0) g/dL Immature Gran # 0.05 H (0.00-0.04) X 10*3/uL Neutrophils # 8.47 H (1.80-7.70) X 10*3/uL Monocytes # 1.16 H (0.20-1.00) X 10*3/uL Eosinophils # 0.01 L (0.04-0.35) X 10*3/uL Anion Gap 9.50 L (10.00-18.00) mmol/L Calcium 8.4 L (8.7-10.3) mg/dL Crossmatch See Detail - Imaging and Cardiology CT scan - abdomen: report reviewed CT scan - chest: report reviewed CT scan - pelvis: report reviewed Assessment and Plan (1) Pathological fracture of left femur Current Visit: Yes Status: Acute Priority: High Code(s): M84.452A - PATHOLOGICAL FRACTURE, LEFT FEMUR, INIT ENCNTR FOR FRACTURE SNOMED Code(s): 206105252 (2) Breast cancer Current Visit: Yes Status: Chronic Priority: High Code(s): C50.919 - MALIGNANT NEOPLASM OF UNSP SITE OF UNSPECIFIED FEMALE BREAST SNOMED Code(s): 035983044 Plan: Pending pathology results from repair of the left hip fracture. ER/[place]/Her2 studies will be performed on specimen CT CAP and NM bone scan-mediastinal lymphadenopathy, right hilar mass, left axillary lymphadenopathy and bone metastases confirmed. No disease in the abdomen or pelvis. Dr. Chen discuss this with the patient. CA-15-3 significantly elevated at 1182. CA-27-29 >1800. Patient was simulated today with Radiation Oncology for post pathological femur fracture. Hemoglobin today stable at 7.2 status post U1 unit of blood for hemoglobin of 6.2. Patient is on DVT prophylaxis dose of heparin. SCDs on. Continue to monitor CBC daily. We will likely resume postop anticoagulation with eliquis with once hemoglobin is stable and incisional site has achieved adequate hemostasis Dr. Chen answered all of patient's questions to her satisfaction. F/U out pt for discussion of treatment options. Doctor attests: I performed a history and physical examination of this patient, developed impression and plan of care, discussed with dictator. I agree with dictators note, documented as a scribe.
[2021-09-21] MEDS: SENNOSIDES-DOCUSATE SODIUM 1 EACH TAB PO SCH (21:02)
[2021-09-21] MEDS: AMITRIPTYLINE HCL 25 MG TAB PO SCH (21:02)
[2021-09-22] MEDS: HYDROmorphone 0.5 MG/0.5 ML SYRINGE IVP PRN ×3 (06:22→16:31)
--- NOTE | 2021-09-22 08:11 | P.CONS ---
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 The patient subsequently refused adjuvant therapy including chemotherapy and endocrine therapy. She now presents secondary to severe left hip pain, and was found to have a pathologic fracture requiring IM nail placement. As noted above, the patient was treated with the bilateral mastectomy in 2014 for left-sided breast cancer. She subsequently refused additional adjuvant therapy. She was in her normal state of health until she developed severe left- sided hip pain, primarily radiating to the groin. This was following a slip and fall accident in August. Initially, the patient thought she just had an injury and was ambulating with a cane. When her pain worsened, she presented [facility]. On September 18, the patient was taken to the OR by Dr. Herbert after imaging and there department showed a pathologic fracture involving the left femur. She underwent IM nail placement. Pathology is consistent with metastatic adenocarcinoma, breast primary, ER/FL positive and HER-2 negative. The patient subsequently underwent a bone scan on September 20. This revealed multiple areas of abnormality including the right mid humerus, bilateral ribs, upper and lower thoracic spine, sacrum, calvarium and bilateral hips. A CT scan of the chest, abdomen and pelvis did show a few scattered pulmonary nodules, abnormal mediastinal adenopathy with extensive osseous metastatic disease. There is also note made of a 2 cm left axillary lymph node. At this time, the patient is still having quite a bit of discomfort in the left leg. She states this radiates from the hip and groin down to the knee. She has been able to ambulate but only a short distance with a walker. She is still having quite a bit of oozing from the surgical site. The patient does notice some similar pain now involving the right groin, but it is not nearly as severe as what brought her to the hospital. Review of Systems Constitutional: Denies chills, Denies fever Eyes: denies blurred vision Ears, nose, mouth and throat: Denies headache Cardiovascular: Reports edema (LLE), Denies chest pain Respiratory: Denies cough Gastrointestinal: Denies BRBPR Musculoskeletal: left: hip pain, knee pain Integumentary: Denies rash Neurological: Denies aphasia, Denies confusion, Denies double vision Psychiatric: Denies anxiety Past Medical History Past Medical History: Cancer, Deep Vein Thrombosis (DVT), GERD/Reflux Additional Past Medical History / Comment(s): VERTIGO, HX OF DVT'S IN LEGS ( FROM CONTROL PILLS), HX OF KIDNEY STONES, SLIDING HIATAL HERNIA, HEPATITIS A (1989), DIAGNOSED WITH BREAST CANCER 01/2015, HX OF POLYNEPHRITIS & UTIS MULTIPLE TIMES. History of Any Multi-Drug Resistant Organisms: None Reported Past Surgical History: Adenoidectomy, Appendectomy, Hysterectomy, Tonsillectomy Additional Past Surgical History / Comment(s): CATARACT RT EYE, KIDNEY SURG FOR STONES & TORN URETER. , OOPHORECTOMY Past Anesthesia/Blood Transfusion Reactions: Previous Problems w/ Anesthesia, Family History of Problems w/ Anesthesia, Motion Sickness Additional Past Anesthesia/Blood Transfusion Reaction / Comm: STATES "TERRIBLE " NAUSEA AND VOMITING. TRYS TO PULL OUT IV'S AND TUBES AND TRYS TO GET UP AND LEAVE. PTS MOTHER HAS SAME REACTION TO ANESTHESIA. Past Psychological History: No Psychological Hx Reported Past Alcohol Use History: None Reported Past Drug Use History: None Reported - Past Family History Father Family Medical History: CVA/TIA, Hypertension Mother Family Medical History: No Reported History Medications and Allergies Home Medications Medication Instructions Recorded Confirmed Type Ciclopirox Olamine [Loprox 0.77% 1 applic TOPICAL BID 09/19/21 09/19/21 History cream] Esomeprazole Magnesium [NexIUM 20 mg PO DAILY 09/19/21 09/19/21 History 24Hr] Allergies Allergy/AdvReac Type Severity Reaction Status Date / Time Iodinated Contrast Media Allergy Swelling Verified 09/19/21 06:29 [Iodinated Contrast- Oral of face and IV Dye] and lips levofloxacin [From Levaquin] Allergy Swelling Verified 09/19/21 06:29 of face and lips amoxicillin trihydrate AdvReac Nausea & Verified 09/19/21 06:29 [From Augmentin] Vomiting gabapentin AdvReac "I felt Verified 09/19/21 06:29 like I was in a stupor and could not function at all metoclopramide HCl AdvReac Hallucinati Verified 09/19/21 06:29 [From Reglan] ons potassium clavulanate AdvReac Nausea & Verified 09/19/21 06:29 [From Augmentin] Vomiting Physical Exam Vitals: Vital Signs Temp Pulse Resp BP Pulse Ox 09/22/21 04:20 99.5 F 99 20 121/77 91 L 09/21/21 19:15 98.1 F 95 20 116/68 94 L 09/21/21 11:44 98.5 F 85 18 130/77 99 09/21/21 10:22 89 18 Intake and Output 09/21/21 09/22/21 09/22/21 22:59 06:59 14:59 Intake Total 120 100 Output Total 2000 600 Balance -1880 -500 Intake: Oral 120 100 Output: Urine 1999 600 Uretheral (Higgins) 1000 200 Other: Voiding Method Indwelling Catheter # Voids 2 - Constitutional General appearance: no acute distress - EENT Eyes: EOMI, PERRLA ENT: hearing grossly normal - Neck Neck: no lymphadenopathy - Respiratory Respiratory: bilateral: CTA - Cardiovascular Rhythm: regular - Gastrointestinal General gastrointestinal: no distended, no tenderness - Integumentary Integumentary: no calor, no cellulitis - Neurologic Neurologic: CNII-XII intact - Musculoskeletal Musculoskeletal: no generalized weakness - Psychiatric Psychiatric: A&O x's 3, appropriate affect 2 cm firm palpable left axillary lymph node Results CBC & Chem 7: 09/21/21 05:48 09/21/21 05:48 Labs: Abnormal Lab Results - Last 24 Hours (Table) 09/21/21 09/21/21 Range/Units 05:48 05:48 WBC 12.22 H (4.50-10.00) X 10*3/uL RBC 2.57 L (4.10-5.20) X 10*6/uL Hgb 7.2 L (12.0-15.0) g/dL Hct 23.3 L (37.2-46.3) % MCHC 30.9 L (32.0-37.0) g/dL Immature Gran # 0.05 H (0.00-0.04) X 10*3/uL Neutrophils # 8.47 H (1.80-7.70) X 10*3/uL Monocytes # 1.16 H (0.20-1.00) X 10*3/uL Eosinophils # 0.01 L (0.04-0.35) X 10*3/uL Anion Gap 9.50 L (10.00-18.00) mmol/L Calcium 8.4 L (8.7-10.3) mg/dL CT scan - abdomen: report reviewed, image reviewed CT scan - chest: report reviewed, image reviewed CT Scan - head: report reviewed, image reviewed Assessment and Plan Assessment: The patient is a 65-year-old female initially treated for a stage II (pT2, pNX, M0) 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 The patient subsequently refused adjuvant therapy including chemotherapy and endocrine therapy. She now presents secondary to severe left hip pain, and was found to have a pathologic fracture requiring IM nail placement. She has been found to have widespread bony metastatic disease, as well as lung nodules with mediastinal adenopathy. Plan: 1. Left pathologic femur fracture s/p IM nail placement: I discussed with the patient that I would recommend a course of adjuvant radiotherapy to the left hip. At the same time, the patient has relatively extensive disease involving the right femur and I would recommend concurrent treatment to this area as this is at risk of future pathologic fracture. At this time, the patient is still having quite a bit of postoperative pain, and is having oozing from the surgical site secondary to blood thinner. The patient may potentially be discharged over the weekend, and therefore we did have her come down for CT simulation today. We will however likely give her some additional healing time, and target her treatment start for the following week. I discussed with the patient that typical side effects of radiotherapy include, but are not limited to; fatigue, skin irritation, alteration in bowel habits, and low likelihood of long-term toxicity considering palliative dosing. 2. Metastatic breast cancer: Although she initially refused adjuvant therapy for breast cancer diagnosed in 2014, the patient now does appear willing to undergo hormonal therapy for her metastatic disease. She will continue follow- up with Dr. Chen Time with Patient: Greater than 30
[2021-09-22] MEDS: PANTOPRAZOLE 40 MG TABLET PO SCH (08:17)
[2021-09-22] MEDS: HEPARIN SODIUM,PORCINE/PF 5,000 UNIT/0.5 ML SYRINGE SQ SCH ×2 (08:17→19:20)
[2021-09-22 09:21] LABS: Basophils # (A) 0.01 X 10*3/uL (0.00-0.10); Basophils % (A) 0.1 %; Eosinophils # (A) 0.09 X 10*3/uL (0.04-0.35); HCT 24.8 % (37.2-46.3); HGB 7.4 g/dL (12.0-15.0); Immature Grans, Automated 0.6 %; Lymphocytes # (A) 1.66 X 10*3/uL (0.90-5.00); Lymphocytes % (A) 17.6 %; MCH 27.8 pg (27.0-32.0); MCHC 29.8 g/dL (32.0-37.0); MCV 93.2 fL (80.0-97.0); Mean Platelet Volume 10.7 fL (9.5-12.2); Monocytes # (A) 1.01 X 10*3/uL (0.20-1.00); Monocytes % (A) 10.7 %; NRBC Per 100 WBC 0 /100 WBCS (0.0-0.0); Neutrophils # (A) 6.59 X 10*3/uL (1.80-7.70); Platelet Count 177 X 10*3/uL (140-440); RBC 2.66 X 10*6/uL (4.10-5.20); RDW 13.5 % (11.5-14.5); WBC 9.42 X 10*3/uL (4.50-10.00)
[2021-09-22 09:27] LABS: African American GFR (CKD) 110.9 (60.0-200.0); BUN/Creat Ratio 19.67 Ratio (12.00-20.00); Blood Urea Nitrogen 11.8 mg/dL (9.0-27.0); Calcium 8.2 mg/dL (8.7-10.3); Non-African American GFR(CKD) 95.7 (60.0-200.0); Potassium 3.5 mmol/L (3.5-5.5)
[2021-09-22 12:26] LABS: Prothrombin Time 10.6 sec (9.0-12.0)
[2021-09-22 12:30] LABS: Albumin 2.4 g/dL (3.5-5.0); Albumin/Globulin Ratio 0.9; Bilirubin,Unconjugated 0.5 mg/dL (0.0-1.1); Globulin 2.6 g/dL; Total Bilirubin 0.7 mg/dL (0.2-1.3)
--- NOTE | 2021-09-22 12:35 | P.PN ---
Subjective Progress Note Date: 09/22/21 This is a 65-year-old female who is status post intramedullary nailing of the left hip. This is postoperative day #4 and patient is seen and evaluated at bedside today. Patient reports continued pain in the left groin and leg, especially when she tries to work with therapy. Otherwise, patient denies any new complaints today. Objective - Vital Signs Vital signs: Vital Signs Temp 99.5 F 09/22/21 04:20 Pulse 99 09/22/21 04:20 Resp 20 09/22/21 04:20 BP 121/77 09/22/21 04:20 Pulse Ox 91 L 09/22/21 04:20 Intake & Output 09/21/21 09/22/21 09/22/21 18:59 06:59 18:59 Intake Total 220 Output Total 2600 Balance -2380 Intake: Oral 220 Output: Urine 2600 Uretheral (Higgisn) 1200 Other: Voiding Method Indwelling Catheter Indwelling Catheter Indwelling Catheter # Voids 2 - Exam Vital signs are stable. Patient is in no acute distress and is alert and oriented 3. Calf is soft and nontender to palpation. Compressive dressing is clean, dry and intact. Patient has full foot and ankle motion without pain or difficulty. Sensation intact. Neurovascular status and circulatory status are intact. - Labs CBC & Chem 7: 09/22/21 06:14 09/22/21 06:14 Labs: Abnormal Lab Results - Last 24 Hours (Table) 09/22/21 09/22/21 Range/Units 06:14 06:14 RBC 2.66 L (4.10-5.20) X 10*6/uL Hgb 7.4 L (12.0-15.0) g/dL Hct 24.8 L (37.2-46.3) % MCHC 29.8 L (32.0-37.0) g/dL Immature Gran # 0.06 H (0.00-0.04) X 10*3/uL Monocytes # 1.01 H (0.20-1.00) X 10*3/uL Calcium 8.2 L (8.7-10.3) mg/dL Assessment and Plan (1) Pathological fracture of left femur Current Visit: Yes Status: Acute Priority: High Code(s): M84.452A - PA THOLOGICAL FRACTURE, LEFT FEMUR, INIT ENCNTR FOR FRACTURE SNOMED Code(s): 524320655 Plan: Continue compressive dressing. Change as needed to keep clean and dry. Anticoagulation per internal medicine and oncology. 50% weightbearing to the left lower extremity. Appreciate input from internal medicine and oncology. Anticipate discharge home with homecare when cleared medically.
--- NOTE | 2021-09-22 18:32 | P.PN ---
Subjective Progress Note Date: 09/22/21 Dr. Chen has reviewed pathology of metastatic breast cancer with patient and discussed the plan for treatment as well as goals of care. Objective - Vital Signs Vital signs: Vital Signs Temp 99.5 F 09/22/21 04:20 Pulse 99 09/22/21 04:20 Resp 20 09/22/21 04:20 BP 121/77 09/22/21 04:20 Pulse Ox 91 L 09/22/21 04:20 Intake & Output 09/21/21 09/22/21 09/22/21 18:59 06:59 18:59 Intake Total 220 Output Total 2600 Balance -2380 Intake: Oral 220 Output: Urine 2600 Uretheral (Higgins) 1200 Other: Voiding Method Indwelling Catheter Indwelling Catheter Indwelling Catheter # Voids 2 - Exam - Constitutional General appearance: Present: average body habitus, cooperative, no acute distress - EENT Eyes: Present: anicteric sclerae, edentulous ENT: Present: hearing grossly normal - Respiratory Respiratory: bilateral: CTA - Cardiovascular Rhythm: regular Heart sounds: normal: S1, S2 Abnormal Heart Sounds: Absent: systolic murmur, diastolic murmur, rub, S3 Gallop, S4 Gallop, click, other - Peripheral edema leg Peripheral Edema: right: None, left: Trace - Gastrointestinal General gastrointestinal: Present: normal bowel sounds, soft - Neurologic Neurologic: Present: CNII-XII intact - Musculoskeletal Musculoskeletal Comment(s): LLE slightly weak from pain post op Musculoskeletal: Present: strength equal bilaterally - Psychiatric Psychiatric: Present: A&O x's 3, appropriate affect, intact judgment & insight - Labs CBC & Chem 7: 09/22/21 06:14 09/22/21 06:14 Labs: Abnormal Lab Results - Last 24 Hours (Table) 09/22/21 09/22/21 Range/Units 06:14 06:14 RBC 2.66 L (4.10-5.20) X 10*6/uL Hgb 7.4 L (12.0-15.0) g/dL Hct 24.8 L (37.2-46.3) % MCHC 29.8 L (32.0-37.0) g/dL Immature Gran # 0.06 H (0.00-0.04) X 10*3/uL Monocytes # 1.01 H (0.20-1.00) X 10*3/uL Calcium 8.2 L (8.7-10.3) mg/dL Assessment and Plan Plan: CT scan - abdomen: report reviewed, image reviewed CT scan - chest: report reviewed, image reviewed CT Scan - head: report reviewed, image reviewed Assessment and Plan Assessment: The patient is a 65-year-old female initially treated for a stage II (pT2, pNX, M0) moderately 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 The patient subsequently refused adjuvant therapy including chemotherapy and endocrine therapy. She now presents secondary to severe left hip pain, and was found to have a pathologic fracture requiring IM nail placement. She has been found to have widespread bony metastatic disease, as well as lung nodules with mediastinal adenopathy. Plan: 1. Left pathologic femur fracture s/p IM nail placement: - Dr. Wills has seen and evaluated and planning adjuvant radiation to left hip 2. Neoplastic related Post-operative pain: - Continue supportive care and plan for home regimen 3. Metastatic breast cancer: - Unfortunately she initially refused adjuvant therapy for breast cancer diagnosed in 2014 - the patient now does appear willing to undergo hormonal therapy for her metastatic disease. - Letrazole to begin, may add bone strengther after surgical/radiation intervention is healed Discussed pathology and plan in detail with patient Dr. Perry: I have completed the full history and physical, developed the above impression and plan, agree with dictation, dictated as a scribe.
[2021-09-22] MEDS: AMITRIPTYLINE HCL 25 MG TAB PO SCH (19:20)
[2021-09-22] MEDS: SENNOSIDES-DOCUSATE SODIUM 1 EACH TAB PO SCH (19:20)
[2021-09-23] MEDS: PANTOPRAZOLE 40 MG TABLET PO SCH (07:41)
[2021-09-23] MEDS: HYDROcodone/APAP 7.5-325MG 1 EACH TAB PO PRN ×2 (07:42→19:39)
[2021-09-23 08:51] LABS: Basophils # (A) 0.02 X 10*3/uL (0.00-0.10); Basophils % (A) 0.2 %; Eosinophils # (A) 0.04 X 10*3/uL (0.04-0.35); Eosinophils % (A) 0.5 %; HCT 27.3 % (37.2-46.3); HGB 8.3 g/dL (12.0-15.0); Immature Grans, Automated 0.8 %; Lymphocytes # (A) 1.64 X 10*3/uL (0.90-5.00); Lymphocytes % (A) 18.9 %; MCH 28.4 pg (27.0-32.0); MCHC 30.4 g/dL (32.0-37.0); MCV 93.5 fL (80.0-97.0); Mean Platelet Volume 10.6 fL (9.5-12.2); Monocytes # (A) 0.87 X 10*3/uL (0.20-1.00); NRBC Per 100 WBC 0 /100 WBCS (0.0-0.0); Neutrophils # (A) 6.02 X 10*3/uL (1.80-7.70); Neutrophils % (A) 69.6 %; Platelet Count 212 X 10*3/uL (140-440); RBC 2.92 X 10*6/uL (4.10-5.20); RDW 13.5 % (11.5-14.5); WBC 8.66 X 10*3/uL (4.50-10.00)
[2021-09-23] MEDS: HEPARIN SODIUM,PORCINE/PF 5,000 UNIT/0.5 ML SYRINGE SQ SCH ×2 (10:12→19:40)
[2021-09-23 11:38] LABS: Carbon Dioxide 26.3 mmol/L (20.0-27.5); Potassium 3.6 mmol/L (3.5-5.5)
[2021-09-23 11:39] LABS: Albumin 2.9 g/dL (3.8-4.9); Albumin/Globulin Ratio 1.28 (1.60-3.17); Anion Gap 9.4 mmol/L (10.00-18.00); BUN/Creat Ratio 16.8 Ratio (12.00-20.00); Blood Urea Nitrogen 8.4 mg/dL (9.0-27.0); Calcium 8.2 mg/dL (8.7-10.3); Globulin 2.2 g/dL (1.6-3.3); Magnesium 1.9 mg/dL (1.5-2.4); Non-African American GFR(CKD) 101.8 (60.0-200.0); Total Bilirubin 0.5 mg/dL (0.30-1.20); Total Protein 5.1 g/dL (6.2-8.2)
--- NOTE | 2021-09-23 12:10 | P.PN ---
Progress Note - Text Progress Note Date: 09/23/21 Orthopedics: History of present illness: Patient is a pleasant 65-year-old female who is seen in the bedside for full evaluation for her left hip. She is status post left intramedullary nail fixation for the left hip for pathologic left intertrochanteric hip fracture. Patient states she's not had any significant improvement of her pain overall. She continues to have difficulty with lifting her left lower extremity. She continues to have significant left-sided groin pain. She was able to ambulate with assistance of a walker within her room today. She is currently sitting on a bedside commode. She continues to keep a Higgins catheter intact. She does continues to be seen and examined by multiple medical providers including medicine, oncology, and interventional radiology. She has working with physical therapy. She states she will not be clear for discharge home until a ramp has built at her house. Patient states a family member will be building a ramp tomorrow. She is hoping to be ready for discharge this coming Saturday, 022. She has been eating some food but does not care for the flavor of the food and has not had much of an appetite. She is currently being treated and evaluated for metastatic breast cancer. She is able to perform active range of motion with dorsiflexion and plantar flexion on the left. She denies any calf pain. Dressing has been changes needle left hip. She is not currently experiencing any significant drainage at the left hip. Physical Exam Intramedullary [place] for Intertrochanteric Fracture: Status post surgical day number 5 Patient is examined lying in bed Patient is awake and alert, and oriented 3 Vital signs stable Good chest excursion with deep inspiration and expiration; patient currently on O2 nasal cannula Abdomen soft nontender No signs or symptoms of DVT; no calf pain Lower extremity cuffs in place bilaterally Dressing of the hip is clean, dry, and intact; no erythema, purulence, or signs of infection No pain with palpation over the surgical sites Full range of motion of ankles bilaterally Compression stockings intact bilaterally Dorsiflexion, plantarflexion, and extensor hallucis longus positive sustained bilaterally Capillary refill less than 2 seconds bilateral lower extremities Higgins catheter intact Assessment: Status post left hip intramedullary nail fixation for pathologic left intertrochanteric hip fracture Neoplastic related postoperative pain Left hip pain Left lower extremity weakness Plan: 1. Patient is status post left hip intramedullary nail fixation for pathologic left intertrochanteric hip fracture. She does continue to have significant pain in her left groin and has had some difficulty of pain control. We did discuss she may continue with [place] 7.5 mg/325 mg and/or Dilaudid as prescribed by medicine for pain control. 2. She may continue with 50% weightbearing on the left lower extremity 3. She is encouraged to use a walker to aid in ambulation as needed 4. She is encouraged to continue working with physical therapy increase her mobility and ambulation 5. Continue with compressive dressing over the left hip with dressing changes as needed 6. Patient will continue with anticoagulation per internal medicine and oncology 7. Higgins catheter to be managed by medicine A. Patient states a ramp is currently scheduled to be billed at her house tomorrow. Patient states physical therapy would not clear her for discharge until this ramp is built and that she would have significant difficulty ambulating up the steps into her house. If the patient is able to be cleared by her other multiple medical providers and the ramp is built at her home, we would plan for home as early as this coming 09/25/2021, with home care.
[2021-09-23] MEDS: HYDROmorphone 0.5 MG/0.5 ML SYRINGE IVP PRN (12:18)
[2021-09-23] MEDS: LETROZOLE 2.5 MG TAB PO SCH (17:37)
[2021-09-23] MEDS: SENNOSIDES-DOCUSATE SODIUM 1 EACH TAB PO SCH (19:35)
[2021-09-23] MEDS: AMITRIPTYLINE HCL 25 MG TAB PO SCH (19:40)
--- NOTE | 2021-09-23 21:19 | P.PN ---
Subjective Progress Note Date: 09/22/21 Principal diagnosis: Pathological fracture Left femur Status post intramedullary nailing of left hip History of breast cancer 65-year-old female patient who was initially seen in the fall of 2014 by Medical Oncology. She noted a small lump on the inner lower portion of her left breast in the fall of 2013. She did not get it evaluated until 01/21 when she noticed that the lump was definitely bigger, there were overlying skin changes as well as inversion of the nipple. Core biopsy, positive for invasive ductal carcinoma. Tumor was felt to be large, concerns for skin involvement. She was referred to Dr. Chen. Patient had mammogram and ultrasound 02/10/15 and was still pending results from that as well as ER/NH/HER-2/yvonne status on biopsy when seen. It was recommended that she have staging PET or CT/NMBS but, despite recommendations, patient decided to proceed with immediate surgery with bilateral mastectomy. She had surgery 02/18/15 with no complications. The right breast was negative. The left revealed a 3.5 cm IDC, no nodes detected despite removal of level I axillary contents. She agreed to postop imaging, CT CAP and NM bone scan were negative. Final staging T2 Nx M0. Ultimately she was found to be hormone receptor positive, HER-2 negative, no metastases. Adjuvant chemotherapy was recommended, with posttreatment axillary radiation followed by hormonal manipulation. Patient refused the same and has not followed up with either medical oncology or surgery, last seen 03/24. Patient is presenting with left hip pain, she states that she slipped on the ice 08/09/21. The pain has been persistent. She has been seen by orthopedics and had repair of the hip fracture, specimen sent for evaluation. She denies any weight loss, she had covid July 2019, she states she is also in the omicron variant. Patient is a clinical trials nurse, she is looking for staging and a consult of what is happening. Objective - Vital Signs Vital signs: Vital Signs Temp 99.5 F 09/22/21 04:20 Pulse 99 09/22/21 04:20 Resp 20 09/22/21 04:20 BP 121/77 09/22/21 04:20 Pulse Ox 91 L 09/22/21 04:20 Intake & Output 09/21/21 09/22/21 09/22/21 18:59 06:59 18:59 Intake Total 220 Output Total 2600 Balance -2380 Intake: Oral 220 Output: Urine 2600 Uretheral (Higgins) 1200 Other: Voiding Method Indwelling Catheter Indwelling Catheter Indwelling Catheter # Voids 2 - Exam - Constitutional General appearance: Present: average body habitus, cooperative, no acute distress - EENT Eyes: Present: anicteric sclerae, EOMI, PERRLA, normal appearance ENT: Present: hearing grossly normal, normal oropharynx Ears: bilateral: normal - Neck Neck: Present: normal ROM. Absent: lymphadenopathy, rigidity, thyromegaly Carotids: negative: bruit present Thyroid: bilateral: normal size, negative: enlarged, nodule - Respiratory Respiratory: bilateral: CTA, negative: rales, rhonchi, wheezing - Cardiovascular Rhythm: regular Heart sounds: normal: S1, S2 Abnormal Heart Sounds: Absent: systolic murmur, diastolic murmur - Gastrointestinal General gastrointestinal: Present: normal bowel sounds, soft. Absent: distended, organomegaly, tenderness - Genitourinary Genitourinary Comment(s): deferred - Integumentary Integumentary: Present: normal turgor. Absent: jaundiced, rash, ulcer - Neurologic Neurologic: Present: CNII-XII intact. Absent: focal deficits - Musculoskeletal Musculoskeletal: Present: gait normal, strength equal bilaterally - Psychiatric Psychiatric: Present: A&O x's 3, appropriate affect, intact judgment & insight - Labs CBC & Chem 7: 09/23/21 06:32 09/23/21 06:32 Labs: Abnormal Lab Results - Last 24 Hours (Table) 09/22/21 09/22/21 09/22/21 Range/Units 06:14 06:14 11:57 RBC 2.66 L (4.10-5.20) X 10*6/uL Hgb 7.4 L (12.0-15.0) g/dL Hct 24.8 L (37.2-46.3) % MCHC 29.8 L (32.0-37.0) g/dL Immature Gran # 0.06 H (0.00-0.04) X 10*3/uL Monocytes # 1.01 H (0.20-1.00) X 10*3/uL Calcium 8.2 L (8.7-10.3) mg/dL AST 73 H (14-36) U/L Alkaline Phosphatase 244 H (38-126) U/L Total Protein 5.0 L (6.3-8.2) g/dL Albumin 2.4 L (3.5-5.0) g/dL Assessment and Plan Assessment: 1. Pathological fracture left femur; status post intramedullary nailing of left hip; postoperative day #4 - Orthopedic surgery recommending to continue with compressive dressing change as needed, 50% weightbearing to left lower extremity 2. 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 The patient subsequently refused adjuvant therapy including chemotherapy and endocrine therapy. She now presents secondary to severe left hip pain, and was found to have a pathologic fracture requiring IM nail placement. She has been found to have widespread bony metastatic disease, as well as lung nodules with mediastinal adenopathy. - the patient now does appear willing to undergo hormonal therapy for her metastatic disease. - Letrazole to begin, may add bone strengther after surgical/radiation inte rvention is healed 3. Malignancy related to postoperative pain; continue with current pain regimen 4. Debility; patient has been evaluated by physical therapy and is recommended home health care; likely discharge on 09/25/2021 DVT prophylaxis; SCDs CODE STATUS; full code
--- NOTE | 2021-09-23 21:22 | P.PN ---
Subjective Progress Note Date: 09/23/21 Principal diagnosis: Pathological fracture Left femur Status post intramedullary nailing of left hip History of breast cancer 65-year-old female patient who was initially seen in the fall of 2014 by Medical Oncology. She noted a small lump on the inner lower portion of her left breast in the fall of 2013. She did not get it evaluated until 01/21 when she noticed that the lump was definitely bigger, there were overlying skin changes as well as inversion of the nipple. Core biopsy, positive for invasive ductal carcinoma. Tumor was felt to be large, concerns for skin involvement. She was referred to Dr. Chen. Patient had mammogram and ultrasound 02/10/15 and was still pending results from that as well as ER/ID/HER-2/yvonne status on biopsy when seen. It was recommended that she have staging PET or CT/NMBS but, despite recommendations, patient decided to proceed with immediate surgery with bilateral mastectomy. She had surgery 02/18/15 with no complications. The right breast was negative. The left revealed a 3.5 cm IDC, no nodes detected despite removal of level I axillary contents. She agreed to postop imaging, CT CAP and NM bone scan were negative. Final staging T2 Nx M0. Ultimately she was found to be hormone receptor positive, HER-2 negative, no metastases. Adjuvant chemotherapy was recommended, with posttreatment axillary radiation followed by hormonal manipulation. Patient refused the same and has not followed up with either medical oncology or surgery, last seen 03/24. Patient is presenting with left hip pain, she states that she slipped on the ice 08/09/21. The pain has been persistent. She has been seen by orthopedics and had repair of the hip fracture, specimen sent for evaluation. She denies any weight loss, she had covid July 2019, she states she is also in the omicron variant. Patient is a clinical trials nurse, she is looking for staging and a consult of what is happening. 09/23/2021 Patient is seen and evaluated for follow-up; continues to complain of hip pain and weakness left lower extremity Patient is status post left hip intramedullary nail fixation for pathological left intertrochanteric hip fracture; orthopedic surgery on board and recom mending 50% weightbearing on left lower extremity; patient is recommended to use a walker while ambulating; continue to work with PT/OT with plans to discharge home with home health care Patient has been evaluated by medical oncology; patient will be evaluated by radiation oncology for adjuvant radiation therapy to left hip; patient is not willing to undergo hormonal therapy for her metastatic breast cancer; plan to begin letrozole Objective - Vital Signs Vital signs: Vital Signs Temp 98.3 F 09/23/21 20:21 Pulse 95 09/23/21 20:21 Resp 18 09/23/21 20:21 BP 141/77 09/23/21 20:21 Pulse Ox 93 L 09/23/21 20:21 Intake & Output 09/23/21 09/23/21 09/24/21 06:59 18:59 06:59 Output Total 950 350 Balance -950 -350 Output: Urine 950 350 Other: Voiding Method Indwelling Catheter Indwelling Catheter # Voids 4 - Exam - Constitutional General appearance: Present: average body habitus, cooperative, no acute distress - EENT Eyes: Present: anicteric sclerae, EOMI, PERRLA, normal appearance ENT: Present: hearing grossly normal, normal oropharynx Ears: bilateral: normal - Neck Neck: Present: normal ROM. Absent: lymphadenopathy, rigidity, thyromegaly Carotids: negative: bruit present Thyroid: bilateral: normal size, negative: enlarged, nodule - Respiratory Respiratory: bilateral: CTA, negative: rales, rhonchi, wheezing - Cardiovascular Rhythm: regular Heart sounds: normal: S1, S2 Abnormal Heart Sounds: Absent: systolic murmur, diastolic murmur - Gastrointestinal General gastrointestinal: Present: normal bowel sounds, soft. Absent: distended, organomegaly, tenderness - Genitourinary Genitourinary Comment(s): deferred - Integumentary Integumentary: Present: normal turgor. Absent: jaundiced, rash, ulcer - Neurologic Neurologic: Present: CNII-XII intact. Absent: focal deficits - Musculoskeletal Musculoskeletal: Present: gait normal, strength equal bilaterally - Psychiatric Psychiatric: Present: A&O x's 3, appropriate affect, intact judgment & insight - Labs CBC & Chem 7: 09/23/21 06:32 09/23/21 06:32 Labs: Abnormal Lab Results - Last 24 Hours (Table) 09/23/21 09/23/21 Range/Units 06:32 06:32 RBC 2.92 L (4.10-5.20) X 10*6/uL Hgb 8.3 L (12.0-15.0) g/dL Hct 27.3 L (37.2-46.3) % MCHC 30.4 L (32.0-37.0) g/dL Immature Gran # 0.07 H (0.00-0.04) X 10*3/uL Anion Gap 9.40 L (10.00-18.00) mmol/L BUN 8.4 L (9.0-27.0) mg/dL Creatinine 0.5 L (0.6-1.5) mg/dL Calcium 8.2 L (8.7-10.3) mg/dL AST 118 H (13-35) U/L Alkaline Phosphatase 453 H (41-126) U/L Total Protein 5.1 L (6.2-8.2) g/dL Albumin 2.9 L (3.8-4.9) g/dL Albumin/Globulin Ratio 1.28 L (1.60-3.17) g/dL Assessment and Plan Assessment: 1. Pathological fracture left femur; status post intramedullary nailing of left hip; postoperative day #4 - Orthopedic surgery recommending to continue with compressive dressing change as needed, 50% weightbearing to left lower extremity 2. 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 The patient subsequently refused adjuvant therapy including chemotherapy and endocrine therapy. She now presents secondary to severe left hip pain, and was found to have a pathologic fracture requiring IM nail placement. She has been found to have widespread bony m etastatic disease, as well as lung nodules with mediastinal adenopathy. - the patient now does appear willing to undergo hormonal therapy for her metastatic disease. - Letrazole to begin, may add bone strengther after surgical/radiation intervention is healed 3. Malignancy related to postoperative pain; continue with current pain regimen 4. Debility; patient has been evaluated by physical therapy and is recommended home health care; likely discharge on 09/25/2021 DVT prophylaxis; SCDs CODE STATUS; full code
[2021-09-24] MEDS: HYDROmorphone 0.5 MG/0.5 ML SYRINGE IVP PRN (05:57)
[2021-09-24] MEDS: HEPARIN SODIUM,PORCINE/PF 5,000 UNIT/0.5 ML SYRINGE SQ SCH ×2 (07:59→20:40)
[2021-09-24] MEDS: LETROZOLE 2.5 MG TAB PO SCH (07:59)
[2021-09-24] MEDS: PANTOPRAZOLE 40 MG TABLET PO SCH (07:59)
--- NOTE | 2021-09-24 12:02 | P.PN ---
Progress Note - Text Progress Note Date: 09/24/21 Orthopedics: History of present illness: Patient is a pleasant 65-year-old female who is seen in the bedside for follow- up evaluation for her left hip. She has not had any change in her symptoms since being seen and examined yesterday. She is status post left intramedullary nail fixation for the left hip for pathologic left intertrochanteric hip fracture. Patient states she's not had any significant improvement of her pain overall. She continues to have difficulty with lifting her left lower extremity. She continues to have significant left-sided groin pain. She has been trying to work with physical therapy increase some of her mobility and ambulation. She has been utilizing a walker. She continues to keep a Higgins catheter intact. She does continues to be seen and examined by multiple medical providers including medicine, oncology, and interventional radiology. She states she will not be clear for discharge home until a ramp has built at her house. Patient states a family member will be building a ramp today. She is hoping to be ready for discharge this coming 09/25/2021. She has been eating some food but does not care for the flavor of the food and has not had much of an appetite. She is currently being treated and evaluated for metastatic breast cancer. She is able to perform active range of motion with dorsiflexion and plantar flexion on the left. She denies any calf pain. Dressing remains clean, dry, and intact on her left hip. She is not currently experiencing any significant drainage at the left hip. Physical therapy place her in a pneumatic boot with a side wedge that helps keep her foot and hip from rotating externally and she feels her left hip pain is better controlled since that time. Physical Exam Intramedullary [place] for Intertrochanteric Fracture: Status post surgical day number 6 Patient is examined lying in bed Patient is awake and alert, and oriented 3 Vital signs stable Good chest excursion with deep inspiration and expiration; patient currently on O2 nasal cannula No signs or symptoms of DVT; no calf pain Pneumatic boot intact over the left lower extremity Dressing of the hip is clean, dry, and intact; no erythema, purulence, or signs of infection No pain with palpation over the surgical sites Full range of motion of ankles bilaterally Compression stockings intact bilaterally Dorsiflexion, plantarflexion, and extensor hallucis longus positive sustained bilaterally Capillary refill less than 2 seconds bilateral lower extremities Higgins catheter intact Assessment: Status post left hip intramedullary nail fixation for pathologic left intertrochanteric hip fracture Neoplastic related postoperative pain Left hip pain Left lower extremity weakness Plan: We will continue with our plan as previously set forth. 1. Patient is status post left hip intramedullary nail fixation for pathologic left intertrochanteric hip fracture. She does continue to have significant pain in her left groin and has had some difficulty of pain control. We did discuss she may continue with [place] 7.5 mg/325 mg and/or Dilaudid as prescribed by medicine for pain control. 2. She may continue with 50% weightbearing on the left lower extremity 3. She is encouraged to use a walker to aid in ambulation as needed 4. She is encouraged to continue working with physical therapy increase her mobility and ambulation 5. Continue with compressive dressing over the left hip with dressing changes as needed 6. Patient will continue with anticoagulation per internal medicine and oncology 7. Higgins catheter to be managed by medicine; Higgins could be discontinued from an orthopedic standpoint 8. Patient states a ramp is currently built at her house today. Patient states physical therapy would not clear her for discharge until this ramp is built and that she would have significant difficulty ambulating up the steps into her house. If the patient is able to be cleared by her other multiple medical providers and the ramp is built at her home, we would plan for home as early as this coming 09/25/2021, with home care.
[2021-09-24] MEDS: HYDROcodone/APAP 7.5-325MG 1 EACH TAB PO PRN ×2 (15:59→22:33)
[2021-09-24] MEDS: SENNOSIDES-DOCUSATE SODIUM 1 EACH TAB PO SCH (20:40)
[2021-09-24] MEDS: AMITRIPTYLINE HCL 25 MG TAB PO SCH (20:40)
[2021-09-25] MEDS: HYDROmorphone 0.5 MG/0.5 ML SYRINGE IVP PRN ×3 (07:53→17:25)
[2021-09-25] MEDS: HEPARIN SODIUM,PORCINE/PF 5,000 UNIT/0.5 ML SYRINGE SQ SCH ×2 (07:53→21:00)
[2021-09-25] MEDS: PANTOPRAZOLE 40 MG TABLET PO SCH (07:53)
--- NOTE | 2021-09-25 10:03 | P.PN ---
Subjective Progress Note Date: 09/25/21 This is a 65-year-old female who is status post intramedullary nailing of the left hip. Patient is seen and evaluated at bedside today. Patient states that her pain is slowly improving and the drainage from her incision is less. Patient does report pain in the right groin today. Objective - Vital Signs Vital signs: Vital Signs Temp 98.4 F 09/25/21 04:00 Pulse 85 09/25/21 04:00 Resp 18 09/25/21 04:00 BP 105/63 09/25/21 04:00 Pulse Ox 93 L 09/25/21 04:00 Intake & Output 09/24/21 09/25/21 09/25/21 18:59 06:59 18:59 Intake Total 400 Output Total 1400 Balance -1000 Intake: Oral 400 Output: Urine 1400 Other: Voiding Method Indwelling Catheter Indwelling Catheter # Voids 4 1 # Bowel Movements 1 - Exam Vital signs are stable. Patient is in no acute distress and is alert and oriented 3. Calf is soft and nontender to palpation. Incisions are clean, dry and intact. Patient has full foot and ankle motion without pain or difficulty. Sensation intact. Patient has full active range of motion of the right lower extremity. Neurovascular status and circulatory status are intact. - Labs CBC & Chem 7: 09/23/21 06:32 09/23/21 06:32 Assessment and Plan (1) Pathological fracture of left femur Current Visit: Yes Status: Acute Priority: High Code(s): M84.452A - PATHOLOGICAL FRACTURE, LEFT FEMUR, INIT ENCNTR FOR FRACTURE SNOMED Code(s): 169776292 Plan: Keep incisions clean and dry. Anticoagulation and pain management per internal medicine and oncology. 50% weightbearing to the left lower extremity. Appreciate input from internal medicine and oncology. Anticipate discharge home with homecare when cleared medically.
--- NOTE | 2021-09-25 10:13 | CDI ---
Documentation Clarification Form Date: 09/25/2021 10:05:33 AM From: Elina Muir CCS, CCDS Admit Date: 09/20/2021 04:43:00 PM Patient Name: Sandy Pereira Visit Number: [id number] Discharge Date: ATTENTION: The Clinical Documentation Specialists (CDI) and [facility] Coding Staff appreciate your assistance in clarifying documentation. Please respond to the clarification below the line at the bottom and electronically sign. The CDI & [facility] Coding staff will review the response and follow-up if needed. Please note: Queries are made part of the Legal Health Record. If you have any questions, please contact the author of this message via ITS. Dr. Filiberto Oneill: Per the 09/21 Medical Management Progress Note, the following is documented: Patient also had anemia, possibly blood loss. Additional specificity regarding the Acuity of Anemia is requested. History/Risk Factors per the 09/19 Medical Consult: DVT, GERD, Breast Cancer status post bilateral mastectomy. Clinical indicators: Presented for elective Closed Intramedullary nailing left hip for Pathological fracture of Left Intratrochanteric Hip. Hemoglobin: 09/18 12/5. 09/19: 7.4. 09/20: 6.2. 09/21: 7.2. 09/22: 7.4. 09/23: 8.3 Hematocrit: 09/18: 39.8. 09/19: 24.8. 09/20: 21.2. 09/21: 23.3. 09/22: 24.8. 09/23: 27.3 Treatment: 09/20 Blood Transfusion 1 unit PRBCs. po Protonix, Heparin 5,000 sq q12H Please clarify the Acuity of Anemia: [ ] Acute blood loss anemia [ ] Acute on chronic blood loss anemia [ ] Chronic blood loss anemia [ ] Iron deficiency anemia [ ] Anemia due to malignancy [ ] Unable to determine [ ] Other, please specify (Template Last Revised: July 2020) Anemia due to malignancy MTDD
[2021-09-25 10:36] LABS: Basophils # (A) 0.1 k/uL (0-0.2); Basophils % (A) 1 %; Eosinophils # (A) 0.1 k/uL (0-0.7); Eosinophils % (A) 1 %; HCT 27.6 % (34.0-46.0); Hypochromasia Marked; Lymphocytes # (A) 1.9 k/uL (1.0-4.8); Lymphocytes % (A) 22 %; MCH 28.7 pg (25.0-35.0); MCHC 30.3 g/dL (31.0-37.0); MCV 94.9 fL (80.0-100.0); Mean Platelet Volume 7.6; Monocytes # (A) 0.6 k/uL (0-1.0); Monocytes % (A) 6 %; Neutrophils % (A) 67 %; Platelet Count 338 k/uL (150-450); Poikilocytosis Slight; RBC 2.91 m/uL (3.80-5.40); RDW 14.1 % (11.5-15.5); WBC 8.9 k/uL (3.8-10.6)
[2021-09-25 10:37] LABS: HGB 8.4 gm/dL (11.4-16.0)
[2021-09-25 10:45] LABS: ALT 16 U/L (4-34); AST 48 U/L (14-36); African American GFR (CKD) >90 (>60 ml/min/1.73 sqM); Albumin 2.6 g/dL (3.5-5.0); Albumin/Globulin Ratio 0.9; Alkaline Phosphatase 386 U/L (38-126); Anion Gap 6 mmol/L; Blood Urea Nitrogen 13 mg/dL (7-17); Carbon Dioxide 27 mmol/L (22-30); Chloride 101 mmol/L (98-107); Globulin 2.9 g/dL; Glucose 94 mg/dL (74-99); Non-African American GFR(CKD) >90 (>60 ml/min/1.73 sqM); Potassium 3.7 mmol/L (3.5-5.1); Sodium 134 mmol/L (137-145); Total Protein 5.5 g/dL (6.3-8.2)
[2021-09-25] MEDS: LETROZOLE 2.5 MG TAB PO SCH (10:50)
--- NOTE | 2021-09-25 14:21 | PN ---
PROGRESS NOTE DATE OF SERVICE: 09/25/2021 This 65-year-old woman who was admitted with a hip fracture had intramedullary nailing. The biopsy came back positive as metastatic adenocarcinoma. The bone scan showed multiple metastases. Patient is complaining of severe pain, especially on ambulation, at this time. Radiation Oncology is planning radiation starting from tomorrow. Past medical history reviewed. REVIEW OF SYSTEMS: CARDIOVASCULAR SYSTEM: No angina. RESPIRATION: As mentioned earlier. GI: As mentioned earlier. NERVOUS SYSTEM: Diffusely weak. CURRENT MEDICATIONS: Reviewed. They include [place], Xanax, Elavil. Doses and rest of the medications are also noted. PHYSICAL EXAMINATION: Pulse is 86, blood pressure 124/80, respiration 18. CHEST: Clear to auscultation. CARDIOVASCULAR: S1, S2 muffled. ABDOMEN: Soft, nontender. LEGS: Left leg swelling present. NERVOUS SYSTEM: No focal deficit. LABS: WBC 8.2, hemoglobin is 8.4, sodium 134. ASSESSMENT: 1. Left hip fracture, status post intramedullary nailing. 2. Metastatic breast cancer, adenocarcinoma. 3. Severe pain. 4. Gait dysfunction. 5. Anemia, acute on chronic blood-loss anemia. RECOMMENDATIONS AND DISCUSSION: In this 65-year-old woman who presented with multiple complex medical issues, at this time I recommend to continue the current medications, continue the pain management. I would also recommend DVT prophylaxis. Incentive spirometry. PT/OT evaluation. This patient needs to be hospitalized at this time because of the multiple complex medical issues as well planning of outpatient treatment. I would also recommend evaluation for rehab. Radiation Oncology is pending at this time. The patient informed me that her insurance is not going to cover for the last 3 days. I would somebody the patient to talk to. However, I would recommend strongly continued admission and monitoring of this patient with multiple complex medical issues, especially considering the fact that CT scan of the hip was apparently not sanctioned as an outpatient, and patient has to come back to the ER. Please see the bone scan, which showed extensive metastatic process. Once again, prognosis is extremely guarded because of multiple complex medical issues. Closely follow with multiple consultants. Discussed with the patient and at the bedside. Further recommendations to follow. A copy of this dictation is being forwarded to Dr. Oates, who is the primary physician. MMODL / IJN: [id number] / LAURA
--- NOTE | 2021-09-25 17:07 | P.PN ---
Subjective Progress Note Date: 09/25/21 Principal diagnosis: metastatic Breast Cancer Dr. Chen has reviewed pathology of metastatic breast cancer with patient and discussed the plan for treatment as well as goals of care. Objective - Vital Signs Vital signs: Vital Signs Temp 98.4 F 09/25/21 04:00 Pulse 85 09/25/21 04:00 Resp 18 09/25/21 04:00 BP 105/63 09/25/21 04:00 Pulse Ox 93 L 09/25/21 04:00 Intake & Output 09/24/21 09/25/21 09/25/21 18:59 06:59 18:59 Intake Total 400 Output Total 1400 Balance -1000 Intake: Oral 400 Output: Urine 1400 Other: Voiding Method Indwelling Catheter Indwelling Catheter # Voids 4 # Bowel Movements 1 - Exam - Constitutional General appearance: Present: average body habitus, cooperative, no acute distress - EENT Eyes: Present: anicteric sclerae, edentulous ENT: Present: hearing grossly normal - Respiratory Respiratory: bilateral: CTA - Cardiovascular Rhythm: regular Heart sounds: normal: S1, S2 Abnormal Heart Sounds: Absent: systolic murmur, diastolic murmur, rub, S3 Gallop, S4 Gallop, click, other - Peripheral edema leg Peripheral Edema: right: None, left: Trace - Gastrointestinal General gastrointestinal: Present: normal bowel sounds, soft - Neurologic Neurologic: Present: CNII-XII intact - Musculoskeletal Musculoskeletal Comment(s): LLE slightly weak from pain post op Musculoskeletal: Present: strength equal bilaterally - Psychiatric Psychiatric: Present: A&O x's 3, appropriate affect, intact judgment & insight - Labs CBC & Chem 7: 09/25/21 09:56 09/25/21 09:56 Assessment and Plan Plan: CT scan - abdomen: report reviewed, image reviewed CT scan - chest: report reviewed, image reviewed CT Scan - head: report reviewed, image reviewed Assessment and Plan Assessment: The patient is a 65-year-old female initially treated for a stage II (pT2, pNX, M0) moderately differentiated invasive ductal carcinoma the left breast, ER/[place] positive and HER-2 negative with bilateral mastectomy in 2014. The patient s ubsequently refused adjuvant therapy including chemotherapy and endocrine therapy. She now presents secondary to severe left hip pain, and was found to have a pathologic fracture requiring IM nail placement. She has been found to have widespread bony metastatic disease, as well as lung nodules with mediastinal adenopathy. Plan: 1. Left pathologic femur fracture s/p IM nail placement: - Dr. Wills adjuvant radiation to left hip - Status post left hip intramedullary nail fixation for pathologic left intertrochanteric hip fracture 2. Neoplastic related Post-operative pain: - Continue supportive care and plan for home regimen 3. Metastatic breast cancer: - Unfortunately she initially refused adjuvant therapy for breast cancer diagnosed in 2014 - She apparently was agreeable to hormone therapy however refusing at this time until she speaks with Dr. Chen again - The plan is for Letrazole to begin, may add bone strengther after surgical/radiation intervention is healed Informed Dr. Chen and will await his re-evaluation to discuss Hormone therapy again. Dr. Perry: I have completed the full history and physical, developed the above impression and plan, agree with dictation, dictated as a scribe.
[2021-09-25] MEDS: SENNOSIDES-DOCUSATE SODIUM 1 EACH TAB PO SCH (20:46)
[2021-09-25] MEDS: NYSTATIN 100,000 UNIT/ML SUSP 500,000 UNIT/5 ML CUP PO SCH (21:00)
[2021-09-25] MEDS: HYDROcodone/APAP 7.5-325MG 1 EACH TAB PO PRN (21:01)
[2021-09-25] MEDS: AMITRIPTYLINE HCL 25 MG TAB PO SCH (21:01)
[2021-09-26] MEDS: HYDROmorphone 0.5 MG/0.5 ML SYRINGE IVP PRN ×2 (02:20→09:21)
[2021-09-26] MEDS: PANTOPRAZOLE 40 MG TABLET PO SCH (07:46)
[2021-09-26] MEDS: NYSTATIN 100,000 UNIT/ML SUSP 500,000 UNIT/5 ML CUP PO SCH ×4 (08:29→20:42)
[2021-09-26] MEDS: LETROZOLE 2.5 MG TAB PO SCH (08:44)
[2021-09-26] MEDS: HEPARIN SODIUM,PORCINE/PF 5,000 UNIT/0.5 ML SYRINGE SQ SCH ×2 (08:44→20:42)
[2021-09-26 09:17] LABS: Basophils # (A) 0.02 X 10*3/uL (0.00-0.10); Basophils % (A) 0.3 %; Eosinophils # (A) 0.11 X 10*3/uL (0.04-0.35); Eosinophils % (A) 1.4 %; HCT 24.5 % (37.2-46.3); HGB 7.3 g/dL (12.0-15.0); Lymphocytes # (A) 2.08 X 10*3/uL (0.90-5.00); Lymphocytes % (A) 26.2 %; MCH 27.9 pg (27.0-32.0); MCHC 29.8 g/dL (32.0-37.0); MCV 93.5 fL (80.0-97.0); Mean Platelet Volume 10.1 fL (9.5-12.2); Monocytes # (A) 0.85 X 10*3/uL (0.20-1.00); Monocytes % (A) 10.7 %; NRBC Per 100 WBC 0 /100 WBCS (0.0-0.0); Neutrophils % (A) 60.4 %; Platelet Count 291 X 10*3/uL (140-440); RBC 2.62 X 10*6/uL (4.10-5.20); RDW 13.3 % (11.5-14.5); WBC 7.94 X 10*3/uL (4.50-10.00)
--- NOTE | 2021-09-26 10:04 | P.PN ---
Subjective Progress Note Date: 09/26/21 This is a 65-year-old female who is status post intramedullary nailing of the left hip. Patient is seen and evaluated at bedside today. Patient states that she has been able to do more with physical therapy and her pain has been tolerable. Patient states that she started chemotherapy today. Objective - Vital Signs Vital signs: Vital Signs Temp 98.7 F 09/26/21 08:21 Pulse 90 09/26/21 08:21 Resp 18 09/26/21 08:40 BP 120/68 09/26/21 08:21 Pulse Ox 94 L 09/26/21 08:21 Intake & Output 09/25/21 09/26/21 09/26/21 18:59 06:59 18:59 Intake Total 100 120 Output Total 350 1800 Balance -350 -1700 120 Intake: Oral 100 120 Output: Urine 350 1800 Uretheral ([place]iggins) 900 Other: Voiding Method Indwelling Catheter Indwelling Catheter Indwelling Catheter # Voids 1 - Exam Vital signs are stable. Patient is in no acute distress and is alert and oriented 3. Calf is soft and nontender to palpation. Incisions are clean, dry and intact. No active drainage. Patient has full foot and ankle motion without pain or difficulty. Sensation intact. Patient has full active range of motion of the right lower extremity. Neurovascular status and circulatory status are intact. - Labs CBC & Chem 7: 09/26/21 06:14 09/25/21 09:56 Labs: Abnormal Lab Results - Last 24 Hours (Table) 09/25/21 09/25/21 09/26/21 Range/Units 09:56 09:56 06:14 RBC 2.91 L 2.62 L (3.80-5.40) m/uL Hgb 8.4 L D 7.3 L (11.4-16.0) gm/dL Hct 27.6 L 24.5 L (34.0-46.0) % MCHC 30.3 L 29.8 L (31.0-37.0) g/dL Immature Gran # 0.08 H (0.00-0.04) X 10*3/uL Sodium 134 L (137-145) mmol/L Calcium 8.0 L (8.4-10.2) mg/dL AST 48 H (14-36) U/L Alkaline Phosphatase 386 H (38-126) U/L Total Protein 5.5 L (6.3-8.2) g/dL Albumin 2.6 L (3.5-5.0) g/dL Assessment and Plan (1) Pathological fracture of left femur Current Visit: Yes Status: Acute Priority: High Code(s): M84.452A - PATHOLOGICAL FRACTURE, LEFT FEMUR, INIT ENCNTR FOR FRACTURE SNOMED Code(s): 358406208 Plan: Keep incisions clean and dry. daily dressing changes. Anticoagulation and pain management per internal medicine and oncology. 50% weightbearing to the left lower extremity. Appreciate input from internal medicine and oncology. Anticipate discharge home with homecare when cleared medically.
--- NOTE | 2021-09-26 11:27 | P.PN ---
Subjective Progress Note Date: 09/26/21 Principal diagnosis: Pathological fracture, history breast cancer, recurrent, metastatic breast cancer In follow-up today patient reports mild oozing of blood from incision, no other bleeding to report. Plan is to start XRT next week, she took her 1st dose of letrazole this AM. She does not have SCDs on. Objective - Vital Signs Vital signs: Vital Signs Temp 98.7 F 09/26/21 08:21 Pulse 90 09/26/21 08:21 Resp 18 09/26/21 08:40 BP 120/68 09/26/21 08:21 Pulse Ox 94 L 09/26/21 08:21 Intake & Output 09/25/21 09/26/21 09/26/21 18:59 06:59 18:59 Intake Total 100 120 Output Total 350 1800 Balance -350 -1700 120 Intake: Oral 100 120 Output: Urine 350 1800 Uretheral (Higgins) 900 Other: Voiding Method Indwelling Catheter Indwelling Catheter Indwelling Catheter # Voids 1 - Constitutional General appearance: Present: average body habitus, cooperative, no acute distress - EENT Eyes: Present: anicteric sclerae, EOMI ENT: Present: hearing grossly normal - Respiratory Respiratory: bilateral: CTA - Cardiovascular Rhythm: regular Heart sounds: normal: S1, S2 Abnormal Heart Sounds: Absent: systolic murmur, diastolic murmur, rub, S3 Gallop, S4 Gallop, click, other - Peripheral edema leg Peripheral Edema: right: None, left: Trace - Gastrointestinal General gastrointestinal: Present: normal bowel sounds, soft - Integumentary Integumentary: Present: normal - Neurologic Neurologic: Present: CNII-XII intact - Psychiatric Psychiatric: Present: A&O x's 3, appropriate affect, intact judgment & insight - Labs CBC & Chem 7: 09/26/21 06:14 09/25/21 09:56 Labs: Abnormal Lab Results - Last 24 Hours (Table) 09/26/21 Range/Units 06:14 RBC 2.62 L (4.10-5.20) X 10*6/uL Hgb 7.3 L (12.0-15.0) g/dL Hct 24.5 L (37.2-46.3) % MCHC 29.8 L (32.0-37.0) g/dL Immature Gran # 0.08 H (0.00-0.04) X 10*3/uL Assessment and Plan (1) Pathological fracture of left femur Current Visit: Yes Status: Acute Priority: High Code(s): M84.452A - PATHOLOGICAL FRACTURE, LEFT FEMUR, INIT ENCNTR FOR FRACTURE SNOMED Code(s): 375582048 (2) Breast cancer Current Visit: Yes Status: Chronic Priority: High Code(s): C50.919 - MALIGNANT NEOPLASM OF UNSP SITE OF UNSPECIFIED FEMALE BREAST SNOMED Code(s): 424414545 Plan: Pathology results from repair of the left hip fracture c/w metastatic breast cancer, similar to pt previous. ER 61-70%, NE 0-10%, Her2 IHC-0. Letrazole started. CT CAP and NM bone scan-mediastinal lymphadenopathy, right hilar mass, left axillary lymphadenopathy and bone metastases confirmed. No disease in the abdomen or pelvis. CA-15-3 significantly elevated at 1182. CA-27-29 >1800. F/U with Radiation Oncology for pathological femur fracture. Hemoglobin 7.3 today. Mild oozing persists at surgical site. Patient is on DVT prophylaxis dose of heparin. SCDs ordered to be on if pt is in bed. We will likely resume postop anticoagulation with eliquis with once hemoglobin is stable and incision has achieved adequate hemostasis Dr. Chen answered all of patient's questions to her satisfaction. F/U out pt for discussion of treatment options. Doctor attests: I performed a history and physical examination of this patient, developed impression and plan of care, discussed with dictator. I agree with dictators note, documented as a scribe.
[2021-09-26] MEDS: KETOROLAC 15 MG/ML 1 ML VIAL IVP SCH ×2 (15:12→23:06)
[2021-09-26] MEDS: SENNOSIDES-DOCUSATE SODIUM 1 EACH TAB PO SCH (20:41)
[2021-09-26] MEDS: AMITRIPTYLINE HCL 25 MG TAB PO SCH (20:42)
[2021-09-26] MEDS: HYDROcodone/APAP 7.5-325MG 1 EACH TAB PO PRN (20:43)
--- NOTE | 2021-09-26 22:29 | P.PN ---
Subjective Progress Note Date: 09/26/21 This is a pleasant 65-year-old female was recently admitted under orthopedic services for left hip fracture with intramedullary nailing and is being closely monitored. Patient also had biopsy at that time which came back with metastatic adenocarcinoma. Bone scan did show multiple metastases with oncology following closely as well. Radiation oncology also following with plans for radiation to the site starting next Saturday. Recommend adjusting pain medications as patient continues to report severe pain 10/10 and unable to bear weight on the left lower extremity. Orthopedics to follow and oncology with close outpatient follow up on discharge. Encouraged oral intake and increased activity as tolerated. Patient hemoglobin is 7.3 today and will transfuse 1 unit of PRBC. Recommend repeat labs. Case management to follow for discharge planning needs. Review of systems: Constitutional: reports of fatigue, fever, or chills, reports frustration and anxiety above poor progression and inability to ambulate Cardiovascular: No reports of chest pain or palpitations Respiratory: No reports of shortness of breath or cough GI: No reports of nausea, vomiting, or diarrhea : No reports of dysuria or retention Neurovascular: reports of weakness and left hip shooting stabbing pain with movement and also muscle spasms of the left thigh All medications have been reviewed Active Medications Hydrocodone Bitart/Acetaminophen (Hydrocodone/Apap 7.5-325mg 1 Each Tab) 1 each PO Q6H PRN PRN Reason: Pain Scale 1 to 5 Stop: 10/18/21 14:36 Last Admin: 09/25/21 21:01 Dose: 1 each Documented by: Alprazolam (Alprazolam 0.25 Mg Tab) 0.25 mg PO TID PRN PRN Reason: Anxiety Last Admin: 09/21/21 11:43 Dose: 0.25 mg Documented by: Amitriptyline HCl (Amitriptyline Hcl 25 Mg Tab) 25 mg PO HS ITZ Last Admin: 09/25/21 21:01 Dose: 25 mg Documented by: Cyclobenzaprine HCl (Cyclobenzaprine 5 Mg Tab) 5 mg PO TID PRN PRN Reason: Muscle Spasm Heparin Sodium (Porcine) (Heparin Sodium,Porcine/Pf 5,000 Unit/0.5 Ml Syringe) 5,000 unit SQ Q12HR ITZ Last Admin: 09/26/21 08:44 Dose: 5,000 unit Documented by: Hydromorphone HCl (Hydromorphone 0.5 Mg/0.5 Ml Syringe) 0.5 mg IVP Q3HR PRN PRN Reason: Pain Scale 7 to 10 Stop: 10/18/21 14:29 Last Admin: 09/26/21 09:21 Dose: 0.5 mg Documented by: Ketorolac Tromethamine (Ketorolac 15 Mg/Ml 1 Ml Vial) 15 mg IVP Q8HR [facility] Stop: 09/29/21 12:03 Last Admin: 09/26/21 15:12 Dose: 15 mg Documented by: Letrozole (Letrozole 2.5 Mg Tab) 2.5 mg PO DAILY [facility] Last Admin: 09/26/21 08:44 Dose: 2.5 mg Documented by: Magnesium Hydroxide (Magnesium Hydroxide 2,400 Mg/10 Ml Cup) 2,400 mg PO DAILY PRN PRN Reason: Constipation Stop: 10/18/21 14:29 Last Admin: 09/21/21 11:43 Dose: 2,400 mg Documented by: Naloxone HCl (Naloxone 0.4 Mg/Ml 1 Ml Vial) 0.2 mg IV Q2M PRN PRN Reason: Opioid Reversal Stop: 10/18/21 14:18 Nystatin (Nystatin 100,000 Unit/Ml Susp 500,000 Unit/5 Ml Cup) 500,000 unit PO QID [facility]; Protocol Last Admin: 09/26/21 12:52 Dose: 500,000 unit Documented by: Ondansetron HCl (Ondansetron 4 Mg/2 Ml Vial) 4 mg IVP Q8H PRN PRN Reason: Nausea And Vomiting Stop: 10/18/21 14:29 Last Admin: 09/19/21 06:25 Dose: 4 mg Documented by: Pantoprazole Sodium (Pantoprazole 40 Mg Tablet) 40 mg PO -BRKFST [facility] Last Admin: 09/26/21 07:46 Dose: 40 mg Documented by: Senna/Docusate Sodium (Sennosides-Docusate Sodium 1 Each Tab) 2 each PO HS [facility] Stop: 10/18/21 21:01 Last Admin: 09/25/21 20:46 Dose: Not Given Documented by: PHYSICAL EXAMINATION: GENERAL: The patient is alert and oriented x4, Well developed, well nourished. HEENT: Pupils are round and equally reacting to light. EOMI. does have scleral icterus. No conjunctival pallor. Normocephalic, atraumatic. No pharyngeal eryth radha. No thyromegaly. CARDIOVASCULAR: S1 and S2 muffled PULMONARY: diminished breath sounds bilaterally with no wheezing or rhonchi noted. ABDOMEN: soft. Nontender on exam. obese. non-distended, normoactive bowel sounds. No palpable organomegaly. MUSCULOSKELETAL: No joint swelling or deformity. EXTREMITIES: No cyanosis, clubbing, or pedal edema. left hip surgical dressing is intact NEUROLOGICAL: Gross neurological examination did not reveal any focal deficits. Diffuse weakness SKIN: No rashes. Assessment: Left hip fracture, status post intramedullary nailing Metastatic breast cancer, adenocarcinoma anemia, due to malignancy Severe pain Gait dysfunction Anemia, acute on chronic blood loss anemia GI prophylaxis DVT prophylaxis Full code Plan: Recommend to continue with current medications and management per orthopedic services. Patient has been seen and evaluated by PT/OT therapy and working with patient daily, recommending rehab and patient is reluctant and would like to return home. at the bedside and arrangements are being made at the home to accommodate needs. Patient with severe pain and needs more pain control and reports to having sharp pains that develop into muscle cramps while working with PT as patient is unable to bear weight on the left lower extremity. Orthopedics following and surgical dressing was changed. Patient reports to some drainage a nd mild oozing noted on the dressing and hemoglobin did drop a point to 7.3 from last night. Recommend to transfuse one unit of PRBC and will repeat am labs. Oncology following as well and patient will follow up with them outpatient and is scheduled to receive radiation therapy starting next saturday. Will continue to closely monitor. Due to multiple complex medical issues, prognosis is guarded. The impression and plan of care has been dictated by Cori Loredo, nurse practitioner as directed. Dr. Nino MD I have performed a history and examination and MDM of this patient, discussed the same with the dictator, and agree with the dictator's assessment and plan as written ,documented as a scribe. Based on total visit time, I have performed more than 50% of the visit. Any additional findings or plans will be noted. Objective - Vital Signs Vital signs: Vital Signs Temp 98.5 F 09/26/21 11:47 Pulse 69 09/26/21 11:47 Resp 16 09/26/21 11:47 BP 122/74 09/26/21 11:47 Pulse Ox 97 09/26/21 11:47 Intake & Output 09/25/21 09/26/21 09/26/21 18:59 06:59 18:59 Intake Total 100 120 Output Total 350 1800 300 Balance -350 -1700 -180 Intake: Oral 100 120 Output: Urine 350 1800 300 Uretheral (Higgins) 900 Other: Voiding Method Indwelling Catheter Indwelling Catheter Indwelling Catheter # Voids 1 - Labs CBC & Chem 7: 09/26/21 06:14 09/25/21 09:56 Labs: Abnormal Lab Results - Last 24 Hours (Table) 09/26/21 Range/Units 06:14 RBC 2.62 L (4.10-5.20) X 10*6/uL Hgb 7.3 L (12.0-15.0) g/dL Hct 24.5 L (37.2-46.3) % MCHC 29.8 L (32.0-37.0) g/dL Immature Gran # 0.08 H (0.00-0.04) X 10*3/uL
[2021-09-26] MEDS: CYCLOBENZAPRINE 5 MG TAB PO PRN (23:06)
[2021-09-27 06:16] LABS: Basophils % (A) 1 %; Eosinophils # (A) 0.1 k/uL (0-0.7); Eosinophils % (A) 2 %; Hypochromasia Moderate; Lymphocytes # (A) 1.5 k/uL (1.0-4.8); Lymphocytes % (A) 22 %; MCH 28.5 pg (25.0-35.0); MCHC 30.9 g/dL (31.0-37.0); MCV 92.1 fL (80.0-100.0); Monocytes # (A) 0.4 k/uL (0-1.0); Monocytes % (A) 6 %; Neutrophils # (A) 4.4 k/uL (1.3-7.7); Neutrophils % (A) 67 %; Platelet Count 329 k/uL (150-450); Poikilocytosis Slight; RBC 3.15 m/uL (3.80-5.40); RDW 15.3 % (11.5-15.5); WBC 6.6 k/uL (3.8-10.6)
[2021-09-27 06:29] LABS: ALT 15 U/L (4-34); AST 35 U/L (14-36); African American GFR (CKD) >90 (>60 ml/min/1.73 sqM); Albumin 2.5 g/dL (3.5-5.0); Albumin/Globulin Ratio 0.9; Alkaline Phosphatase 304 U/L (38-126); Anion Gap 5 mmol/L; Blood Urea Nitrogen 11 mg/dL (7-17); Calcium 7.9 mg/dL (8.4-10.2); Carbon Dioxide 28 mmol/L (22-30); Chloride 103 mmol/L (98-107); Globulin 2.9 g/dL; Glucose 89 mg/dL (74-99); Non-African American GFR(CKD) >90 (>60 ml/min/1.73 sqM); Potassium 3.4 mmol/L (3.5-5.1); Sodium 136 mmol/L (137-145); Total Bilirubin 1.3 mg/dL (0.2-1.3); Total Protein 5.4 g/dL (6.3-8.2)
[2021-09-27] MEDS: CYCLOBENZAPRINE 5 MG TAB PO PRN ×2 (07:53→20:40)
[2021-09-27] MEDS: ONDANSETRON 4 MG/2 ML VIAL IVP PRN (07:53)
[2021-09-27] MEDS: PANTOPRAZOLE 40 MG TABLET PO SCH (08:02)
[2021-09-27] MEDS: LETROZOLE 2.5 MG TAB PO SCH (09:30)
[2021-09-27] MEDS: NYSTATIN 100,000 UNIT/ML SUSP 500,000 UNIT/5 ML CUP PO SCH ×4 (09:30→22:12)
[2021-09-27] MEDS: HEPARIN SODIUM,PORCINE/PF 5,000 UNIT/0.5 ML SYRINGE SQ SCH ×2 (09:30→20:39)
[2021-09-27] MEDS: KETOROLAC 15 MG/ML 1 ML VIAL IVP SCH ×3 (09:31→23:55)
[2021-09-27] MEDS ORDERED: Potassium Replacement Protocol 1 EACH MISC MISCELLANE PRN (10:42)
--- NOTE | 2021-09-27 10:52 | P.PN ---
Subjective Progress Note Date: 09/27/21 Principal diagnosis: Left femur fracture, pathologic. Metastatic breast cancer. This is a 65-year-old female who is status post intramedullary nailing of the left hip. This is postoperative day #9 and patient is seen and evaluated at bedside today.The patient states that her left hip is sore today. Drainage has decreased. She was able to get up with therapy today and walked 75 feet. She is afebrile. Objective - Vital Signs Vital signs: Vital Signs Temp 98.6 F 09/27/21 07:49 Pulse 84 09/27/21 07:49 Resp 16 09/27/21 07:49 BP 142/68 09/27/21 07:49 Pulse Ox 94 L 09/27/21 04:30 Intake & Output 09/26/21 09/27/21 09/27/21 18:59 06:59 18:59 Intake Total 120 310 Output Total 300 Balance -180 310 Intake: Oral 120 Blood Product 310 Rc Pheresis 2 As3 Unit 310 [id number] Output: Urine 300 Other: Voiding Method Indwelling Catheter Indwelling Catheter Indwelling Catheter - Exam This is a pleasant 65-year-old female in no acute distress. She is alert and oriented 3. Exam of the left leg revealsNo active drainage from incisions. There is a small blister distal to the proximal incision with no drainage. She has full foot and ankle motion without difficulty or pain. Neurovascular status to the lower extremity is intact. - Labs CBC & Chem 7: 09/27/21 05:48 09/27/21 05:48 Labs: Abnormal Lab Results - Last 24 Hours (Table) 09/26/21 09/27/21 09/27/21 Range/Units 16:11 05:48 05:48 RBC 3.15 L (3.80-5.40) m/uL Hgb 9.0 L (11.4-16.0) gm/dL Hct 29.0 L (34.0-46.0) % MCHC 30.9 L (31.0-37.0) g/dL Sodium 136 L (137-145) mmol/L Potassium 3.4 L (3.5-5.1) mmol/L Calcium 7.9 L (8.4-10.2) mg/dL Alkaline Phosphatase 304 H (38-126) U/L Total Protein 5.4 L (6.3-8.2) g/dL Albumin 2.5 L (3.5-5.0) g/dL Crossmatch See Detail Assessment and Plan (1) Pathological fracture of left femur Current Visit: Yes Status: Acute Priority: High Code(s): M84.452A - PATHOLOGICAL FRACTURE, LEFT FEMUR, INIT ENCNTR FOR FRACTURE SNOMED Code(s): 560716183 (2) Breast cancer Current Visit: Yes Status: Chronic Priority: High Code(s): C50.919 - MALIGNANT NEOPLASM OF UNSP SITE OF UNSPECIFIED FEMALE BREAST SNOMED Code(s): 907884996 Plan: The clinical findings are discussed with the patient. She would like to shower today. Her dressings are replaced with Telfa and Tegaderm so that she may shower. We will transfer attending to internal medicine. Continue orthopedic care.
[2021-09-27] MEDS: POTASSIUM CHLORIDE ER 20 MEQ TAB.ER PO SCH ×2 (11:33→13:32)
--- NOTE | 2021-09-27 13:01 | P.PN ---
Subjective Progress Note Date: 09/27/21 Principal diagnosis: metastatic Breast Cancer Patient remains in bed, refusing to increase activity as well as refusing rehab. residential sales manager expressed concern as expressed concern for caring for her in home safely. This was discussed with patient however unclear if she feels more motivated Objective - Vital Signs Vital signs: Vital Signs Temp 98.6 F 09/27/21 07:49 Pulse 84 09/27/21 12:38 Resp 16 09/27/21 12:38 BP 142/68 09/27/21 07:49 Pulse Ox 94 L 09/27/21 04:30 Intake & Output 09/26/21 09/27/21 09/27/21 18:59 06:59 18:59 Intake Total 120 310 Output Total 300 700 Balance -180 310 -700 Intake: Oral 120 Blood Product 310 Rc Pheresis 2 As3 Unit 310 [id number] Output: Urine 300 700 Other: Voiding Method Indwelling Catheter Indwelling Catheter Indwelling Catheter - Exam - Constitutional General appearance: Present: average body habitus, cooperative, no acute distress - EENT Eyes: Present: anicteric sclerae, edentulous ENT: Present: hearing grossly normal - Respiratory Respiratory: bilateral: CTA - Cardiovascular Rhythm: regular Heart sounds: normal: S1, S2 Abnormal Heart Sounds: Absent: systolic murmur, diastolic murmur, rub, S3 Gal lop, S4 Gallop, click, other - Peripheral edema leg Peripheral Edema: right: None, left: Trace - Gastrointestinal General gastrointestinal: Present: normal bowel sounds, soft - Neurologic Neurologic: Present: CNII-XII intact - Musculoskeletal Musculoskeletal Comment(s): LLE slightly weak from pain post op Musculoskeletal: Present: strength equal bilaterally - Psychiatric Psychiatric: Present: A&O x's 3, appropriate affect, intact judgment & insight - Labs CBC & Chem 7: 09/27/21 05:48 09/27/21 05:48 Labs: Abnormal Lab Results - Last 24 Hours (Table) 09/26/21 09/27/21 09/27/21 Range/Units 16:11 05:48 05:48 RBC 3.15 L (3.80-5.40) m/uL Hgb 9.0 L (11.4-16.0) gm/dL Hct 29.0 L (34.0-46.0) % MCHC 30.9 L (31.0-37.0) g/dL Sodium 136 L (137-145) mmol/L Potassium 3.4 L (3.5-5.1) mmol/L Calcium 7.9 L (8.4-10.2) mg/dL Alkaline Phosphatase 304 H (38-126) U/L Total Protein 5.4 L (6.3-8.2) g/dL Albumin 2.5 L (3.5-5.0) g/dL Crossmatch See Detail Assessment and Plan Plan: CT scan - abdomen: report reviewed, image reviewed CT scan - chest: report reviewed, image reviewed CT Scan - head: report reviewed, image reviewed Assessment and Plan Assessment: The patient is a 65-year-old female initially treated for a stage II (pT2, pNX, M0) 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 The patient subsequently refused adjuvant therapy including chemotherapy and endocrine therapy. She now presents secondary to severe left hip pain, and was found to have a pathologic fracture requiring IM nail placement. She has been found to have widespread bony metastatic disease, as well as lung nodules with mediastinal adenopathy. Plan: 1. Left pathologic femur fracture s/p IM nail placement: - Dr. Wills adjuvant radiation to left hip - Status post left hip intramedullary nail fixation for pathologic left intertrochanteric hip fracture 2. Neoplastic related Post-operative pain: - Continue supportive care and plan for home regimen 3. Metastatic breast cancer: - Unfortunately she initially refused adjuvant therapy for breast cancer diagnosed in 2014 - She apparently was agreeable to hormone therapy however refusing at this time until she speaks with Dr. Chen again. She has now agreed and taking - The plan is for Letrazole to begin, may add bone strengther after surgical/radiation intervention is healed - Plan is full dose anticoagulation at discharge - Patient has been encouraged to increase activity and work with therapy as per heel caser refusing therapy, rehab and concerned for safety in home. - She has many options for treatment in the picture of metastatic cancer, case management brought up the option of hospice care which is not appropriate at this time given the options for treatment and control of disease with minimal side effects or toxicities in exchange. Dr. Perry: I have completed the full history and physical, developed the above impression and plan, agree with dictation, dictated as a scribe.
--- NOTE | 2021-09-27 13:02 | PN ---
PROGRESS NOTE DATE OF SERVICE: 09/27/2021 This 65-year-old woman who was admitted with hip fracture was also complaining of severe pain. No chest pain. No palpitation. PHYSICAL EXAMINATION: Pulse is 84, blood pressure 142/60, respirations 16. CHEST: Clear to auscultation. ABDOMEN: Soft. LEGS: Significant swelling present; improving. NERVOUS SYSTEM: No focal deficit. LABS: WBC 6.6, hemoglobin 9. Other labs are reviewed. ASSESSMENT: 1. Left hip fracture, status post intramedullary nailing. 2. Metastatic breast cancer, adenocarcinoma. 3. Anemia due to malignancy. 4. Severe pain. 5. Gait dysfunction. 6. FULL CODE. RECOMMENDATIONS AND DISCUSSION: I recommend to continue current medications, continue with the monitoring, symptomatic treatment. Continue the pain medication. Increase ambulation. Follow closely with multiple consultants. Anticoagulation per Hematology/ Oncology. Prognosis is guarded because of multiple complex medical issues. Further recommendations to follow. MMODL / IJN: [id number] /
[2021-09-27 16:26] VITALS: BMI 23.5
[2021-09-27 19:33] VITALS: PULSE 85; RESP 16
[2021-09-27] MEDS: AMITRIPTYLINE HCL 25 MG TAB PO SCH (20:40)
[2021-09-27] MEDS: SENNOSIDES-DOCUSATE SODIUM 1 EACH TAB PO SCH ×2 (20:40→20:41)
[2021-09-28 04:56] VITALS: BP 156/74; TEMP 98.7
--- NOTE | 2021-09-28 09:06 | P.PN ---
Subjective Progress Note Date: 09/28/21 This is a 65-year-old female who is status post intramedullary nailing of the left hip. Patient is seen and evaluated at bedside today. Patient denies any new complaints today. Objective - Vital Signs Vital signs: Vital Signs Temp 98.7 F 09/28/21 04:55 Pulse 85 09/28/21 04:55 Resp 16 09/28/21 04:55 BP 156/74 09/28/21 04:55 Pulse Ox 93 L 09/28/21 04:55 Intake & Output 09/27/21 09/28/21 09/28/21 18:59 06:59 18:59 Intake Total 560 Output Total 1100 Balance -1100 560 Weight 61.2 kg Intake: Oral 560 Output: Urine 1100 Other: Voiding Method Indwelling Catheter Bedside Commode # Voids 1 2 # Bowel Movements 1 - Exam Vital signs are stable. Patient is in no acute distress and is alert and oriented 3. Calf is soft and nontender to palpation. Dressings are clean, dry and intact. Patient has full foot and ankle motion without pain or difficulty. Sensation intact. Patient has full active range of motion of the right lower extremity. Neurovascular status and circulatory status are intact. - Labs CBC & Chem 7: 09/27/21 05:48 09/27/21 05:48 Assessment and Plan (1) Pathological fracture of left femur Current Visit: Yes Status: Acute Priority: High Code(s): M84.452A - PATHOL OGICAL FRACTURE, LEFT FEMUR, INIT ENCNTR FOR FRACTURE SNOMED Code(s): 409 110133 Plan: Keep incisions clean and dry. Daily dressing changes. Anticoagulation and pain management per internal medicine and oncology. 50% weightbearing to the left lower extremity. Appreciate input from internal medicine and oncology. We will continue to follow.
[2021-09-28] MEDS: KETOROLAC 15 MG/ML 1 ML VIAL IVP SCH (09:11)
[2021-09-28] MEDS: HEPARIN SODIUM,PORCINE/PF 5,000 UNIT/0.5 ML SYRINGE SQ SCH (09:11)
[2021-09-28] MEDS: CYCLOBENZAPRINE 5 MG TAB PO PRN (09:11)
[2021-09-28] MEDS: PANTOPRAZOLE 40 MG TABLET PO SCH (09:11)
[2021-09-28] MEDS: NYSTATIN 100,000 UNIT/ML SUSP 500,000 UNIT/5 ML CUP PO SCH (09:54)
[2021-09-28] MEDS: LETROZOLE 2.5 MG TAB PO SCH (09:54)
[2021-09-28 11:44] LABS: Basophils % (A) 1 %; Eosinophils % (A) 1 %; HCT 32.4 % (34.0-46.0); HGB 10.1 gm/dL (11.4-16.0); Hypochromasia Marked; Lymphocytes # (A) 1.1 k/uL (1.0-4.8); Lymphocytes % (A) 16 %; MCH 29.2 pg (25.0-35.0); MCHC 31.3 g/dL (31.0-37.0); MCV 93.2 fL (80.0-100.0); Mean Platelet Volume 7.6; Monocytes # (A) 0.4 k/uL (0-1.0); Monocytes % (A) 5 %; Neutrophils # (A) 5.6 k/uL (1.3-7.7); Neutrophils % (A) 76 %; Platelet Count 384 k/uL (150-450); Poikilocytosis Slight; RBC 3.47 m/uL (3.80-5.40); RDW 15.7 % (11.5-15.5); WBC 7.3 k/uL (3.8-10.6)
[2021-09-28 11:59] LABS: African American GFR (CKD) >90 (>60 ml/min/1.73 sqM); Anion Gap 8 mmol/L; Blood Urea Nitrogen 7 mg/dL (7-17); Calcium 8.4 mg/dL (8.4-10.2); Carbon Dioxide 24 mmol/L (22-30); Chloride 102 mmol/L (98-107); Glucose 125 mg/dL (74-99); Non-African American GFR(CKD) >90 (>60 ml/min/1.73 sqM); Potassium 3.9 mmol/L (3.5-5.1); Sodium 134 mmol/L (137-145)
--- NOTE | 2021-09-28 13:10 | DS ---
DISCHARGE SUMMARY FINAL DIAGNOSIS: 1. Left hip fracture, possibly pathologic fracture, status post intramedullary nailing. 2. Metastatic breast cancer, adenocarcinoma. 3. Anemia due to malignancy. 4. Severe pain. 5. Gait dysfunction. DISCHARGE DISPOSITION: The patient will be discharged in stable condition with guarded prognosis. Total time taken 35 minutes. HISTORY OF PRESENT ILLNESS: This 65-year-old woman with a past medical history of multiple medical problems was admitted with left hip fracture. Evaluation showed possibly metastatic adenocarcinoma of the breast. Oncology saw the patient and recommended anticoagulation. Otherwise, Orthopedics saw the patient. See orthopedic notes and multiple consultations for further details. On exam, vitals are stable. CARDIOVASCULAR: S1, S2 muffled. ABDOMEN: Soft. NERVOUS SYSTEM: No focal deficit. The patient had pain management, improved significantly. Please see the discharge reconciliation medication list for list of medications. MMODL / IJN: [id number] / MTDD
--- NOTE | 2021-09-28 18:34 | P.PN ---
Subjective Progress Note Date: 09/28/21 Principal diagnosis: metastatic Breast Cancer Patient is planning discharge today, She will need Eliquis 5mg PO BID as this has been cleared from surgery Objective - Vital Signs Vital signs: Vital Signs Temp 98.7 F 09/28/21 04:55 Pulse 85 09/28/21 04:55 Resp 16 09/28/21 04:55 BP 156/74 09/28/21 04:55 Pulse Ox 93 L 09/28/21 04:55 Intake & Output 09/27/21 09/28/21 09/28/21 18:59 06:59 18:59 Intake Total 560 Output Total 1100 Balance -1100 560 Weight 61.2 kg Intake: Oral 560 Output: Urine 1100 Other: Voiding Method Indwelling Catheter Bedside Commode Bedside Commode # Voids 1 2 # Bowel Movements 1 - Exam - Constitutional General appearance: Present: average body habitus, cooperative, no acute distress - EENT Eyes: Present: anicteric sclerae, edentulous ENT: Present: hearing grossly normal - Respiratory Respiratory: bilateral: CTA - Cardiovascular Rhythm: regular Heart sounds: normal: S1, S2 Abnormal Heart Sounds: Absent: systolic murmur, diastolic murmur, rub, S3 Gallop, S4 Gallop, click, other - Peripheral edema leg Peripheral Edema: right: None, left: Trace - Gastrointestinal General gastrointestinal: Present: normal bowel sounds, soft - Neurologic Neurologic: Present: CNII-XII intact - Musculoskeletal Musculoskeletal Comment(s): LLE slightly weak from pain post op Musculoskeletal: Present: strength equal bilaterally - Psychiatric Psychiatric: Present: A&O x's 3, appropriate affect, intact judgment & insight - Labs CBC & Chem 7: 09/28/21 11:22 09/28/21 11:22 Labs: Abnormal Lab Results - Last 24 Hours (Table) 09/28/21 09/28/21 Range/Units 11:22 11:22 RBC 3.47 L (3.80-5.40) m/uL Hgb 10.1 L (11.4-16.0) gm/dL Hct 32.4 L (34.0-46.0) % RDW 15.7 H (11.5-15.5) % Sodium 134 L (137-145) mmol/L Glucose 125 H (74-99) mg/dL Assessment and Plan Plan: CT scan - abdomen: report reviewed, image reviewed CT scan - chest: report reviewed, image reviewed CT Scan - head: report reviewed, image reviewed Assessment and Plan Assessment: The patient is a 65-year-old female initially treated for a stage II (pT2, pNX, M0) 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 The patient subsequently refused adjuvant therapy including chemotherapy and endocrine therapy. She now presents secondary to severe left hip pain, and was found to have a pathologic fracture requiring IM nail placement. She has been found to have widespread bony metastatic disease, as well as lung nodules with mediastinal adenopathy. Plan: 1. Left pathologic femur fracture s/p IM nail placement: - Dr. Wills adjuvant radiation to left hip - Status post left hip intramedullary nail fixation for pathologic left intertrochanteric hip fracture 2. Neoplastic related Post-operative pain: - Continue supportive care and plan for home regimen 3. Metastatic breast cancer: - Unfortunately she initially refused adjuvant therapy for breast cancer diagnosed in 2014 - She apparently was agreeable to hormone therapy however refusing at this time until she speaks with Dr. Chen again. She has now agreed and taking - The plan is for Letrazole to begin, may add bone strengther after surgical/radiation intervention is healed - Plan is full dose anticoagulation at discharge - Patient has been encouraged to increase activity and work with therapy as per vocational case manager refusing therapy, rehab and concerned for safety in home. - She has many options for treatment in the picture of metastatic cancer, case management brought up the option of hospice care which is not appropriate at this time given the options for treatment and control of disease with minimal side effects or toxicities in exchange. Prescription for eliquis and letrazole sent to pharmacy from office Plan for discharge today Dr. Chen has spoken to surgery and ok to start full dose AC therapy Dr. Perry: I have completed the full history and physical, developed the above impression and plan, agree with dictation, dictated as a scribe.
== END 2021-09-28 12:44 | disposition home or self-care (01) | DRG 481 ==
LOC: OR 12:55 → 5NMEDONC 16:40 → OR 09-19 02:58 → 5NMEDONC 09-19 02:58 → OBSVTOIN 09-20 16:43 → 5NMEDONC 09-27 22:46
PROVIDERS: ADMIT Hospitalist; ATTEND Hospitalist
PROC: 0QS736Z Reposition Left Upper Femur with Intramedullary Internal Fixation Device, Percutaneous Approach (ICD-10-PCS; principal; 2021-09-18 15:15)
PROC: 30233N1 Transfusion of Nonautologous Red Blood Cells into Peripheral Vein, Percutaneous Approach (ICD-10-PCS; 2021-09-20)
DX: M84.452A Pathological fracture, left femur, initial encounter for fracture (principal); C79.51 Secondary malignant neoplasm of bone; D62 Acute posthemorrhagic anemia; C50.912 Malignant neoplasm of unspecified site of left female breast; D63.0 Anemia in neoplastic disease; Z17.0 Estrogen receptor positive status [ER+]; Z82.3 Family history of stroke; Z82.49 Family history of ischemic heart disease and other diseases of the circulatory system; Z85.3 Personal history of malignant neoplasm of breast; Z86.718 Personal history of other venous thrombosis and embolism; Z87.442 Personal history of urinary calculi; Z90.710 Acquired absence of both cervix and uterus; Z90.13 Acquired absence of bilateral breasts and nipples; Z91.041 Radiographic dye allergy status; R26.9 Unspecified abnormalities of gait and mobility; R91.8 Other nonspecific abnormal finding of lung field; R59.0 Localized enlarged lymph nodes
CPT/HCPCS: 71260; 74177; 77290; 78306; 80048; 80053; 80076; 83735; 85025; 85610; 85730; 86300; 86850; 86870; 86880; 86900; 86901; 86920; 88305; 88311; 88341; 88342

== ENCOUNTER → 2021-10-10 | Outpatient (CLI) | payer OTHER ==
[2021-10-10 22:47] LABS: Basophils # (A) 0.03 X 10*3/uL (0.00-0.10); Basophils % (A) 0.4 %; Eosinophils # (A) 0.07 X 10*3/uL (0.04-0.35); HGB 11.6 g/dL (12.0-15.0); Immature Grans, Automated 0.1 %; Lymphocytes # (A) 1.95 X 10*3/uL (0.90-5.00); Lymphocytes % (A) 27.3 %; MCH 27.3 pg (27.0-32.0); MCHC 29.7 g/dL (32.0-37.0); MCV 91.8 fL (80.0-97.0); Mean Platelet Volume 9.8 fL (9.5-12.2); Monocytes # (A) 0.46 X 10*3/uL (0.20-1.00); Monocytes % (A) 6.5 %; NRBC Per 100 WBC 0 /100 WBCS (0.0-0.0); Neutrophils # (A) 4.61 X 10*3/uL (1.80-7.70); Neutrophils % (A) 64.7 %; Platelet Count 376 X 10*3/uL (140-440); RBC 4.25 X 10*6/uL (4.10-5.20); RDW 14.1 % (11.5-14.5); WBC 7.13 X 10*3/uL (4.50-10.00)
[2021-10-11] LABS: African American GFR (CKD) 109.6 (60.0-200.0); Albumin 4.1 g/dL (3.8-4.9); Albumin/Globulin Ratio 1.3 (1.60-3.17); Anion Gap 13.1 mmol/L (10.00-18.00); BUN/Creat Ratio 17.71 Ratio (12.00-20.00); Calcium 9.5 mg/dL (8.7-10.3); Carbon Dioxide 22.3 mmol/L (20.0-27.5); Globulin 3.1 g/dL (1.6-3.3); Non-African American GFR(CKD) 94.6 (60.0-200.0); Potassium 3.8 mmol/L (3.5-5.5); Total Bilirubin 0.3 mg/dL (0.30-1.20); Total Protein 7.2 g/dL (6.2-8.2)
== END | disposition home or self-care (01) ==
LOC: LABWHC1 16:10
PROVIDERS: ATTEND Family Medicine
DX: D64.9 Anemia, unspecified (principal); R53.83 Other fatigue
CPT/HCPCS: 36415; 80053; 85025

== ENCOUNTER 2021-11-29 07:31 | Day surgery (SDC) | payer OTHER ==
[2021-11-27 16:19] VITALS: BMI 22.4
[~2021-11-29 07:31] MED LIST: ACETAMINOPHEN TAB 500 MG TAB PO PRN; HEPARIN SODIUM,PORCINE/PF 5,000 UNIT/0.5 ML SYRINGE SQ PRN; HYDROmorphone 0.5 MG/0.5 ML SYRINGE IVP PRN; LACTATED RINGERS 1,000 ML IV SCH; LIDOCAINE 1% (10MG/ML) FOR IV START INTRADERMA PRN; Pre Op ABX Message 1 EACH MISC MISCELLANE ONE
[2021-11-29] MEDS ORDERED: ONDANSETRON 4 MG/2 ML VIAL ONE (08:02)
[2021-11-29] MEDS ORDERED: DEXAMETHASONE SOD PHOSPHATE 4 MG/ML 1 ML VIAL IV ONE (08:15)
[2021-11-29] MEDS ORDERED: PHENYLEPHRINE-0.9% NACL SYG 1,000 MCG/10 ML SYRINGE ONE (08:24)
[2021-11-29] MEDS ORDERED: fentaNYL (PF) 50 MCG/ML 2 ML AMP ONE (08:24)
[2021-11-29] MEDS ORDERED: MIDAZOLAM 2 MG/2 ML VIAL ONE (08:24)
[2021-11-29] MEDS ORDERED: PROPOFOL 10 MG/ML 20 ML VIAL IV ONE (08:24)
[2021-11-29] MEDS ORDERED: LIDOCAINE 2% INJ 20 MG/ML (2 ML VIAL) ONE (08:24)
[2021-11-29 08:36] LABS: HCT 42.3 % (34.0-46.0); Hypochromasia Moderate; MCHC 31.5 g/dL (31.0-37.0); MCV 92.1 fL (80.0-100.0); Mean Platelet Volume 7.2; Platelet Count 270 k/uL (150-450); RBC 4.59 m/uL (3.80-5.40); RDW 14.2 % (11.5-15.5); WBC 4.6 k/uL (3.8-10.6)
[2021-11-29] MEDS ORDERED: SODIUM CHLORIDE 0.9% 50 ML with ceFAZolin 1,000 MG IV ONE ×2 (08:44)
[2021-11-29 08:46] LABS: HGB 13.3 gm/dL (11.4-16.0)
[2021-11-29] MEDS ORDERED: BUPIVACAIN-EPI 0.25%-1:200,000 30 ML VIAL SQ ONE ×2 (09:01)
[2021-11-29 09:32] VITALS: TEMP 97
--- NOTE | 2021-11-29 09:39 | P.GSHP ---
History of Present Illness H&P Date: 11/29/21 Chief Complaint: Metastatic breast cancer Is a 65-year-old female with history of metastatic breast cancer. Patient presents today for Port-A-Cath placement Past Medical History Past Medical History: Cancer, Deep Vein Thrombosis (DVT), Eye Disorder, GERD/Reflux, Liver Disease, Pneumonia Additional Past Medical History / Comment(s): Left cataract. Recent SOB, fatigue, malaise and leg cramping. Recently had 3 blood transfusions for low hemoglobin. VERTIGO, HX OF DVT'S IN LEGS ( FROM CONTROL PILLS), HX OF KIDNEY STONES, SLIDING HIATAL HERNIA, HEPATITIS A (1989), DIAGNOSED WITH BREAST CANCER 01/2015, HX OF POLYNEPHRITIS & UTIS MULTIPLE TIMES. Recurrence of left breast cancer with bone mets had radiation, last week of . History of Any Multi-Drug Resistant Organisms: None Reported Past Surgical History: Adenoidectomy, Appendectomy, Hysterectomy, Orthopedic Surgery, Tonsillectomy Additional Past Surgical History / Comment(s): CATARACT RT EYE, KIDNEY SURG FOR STONES & TORN URETER, OOPHORECTOMY, closed left femur (nailing) surgery with yamila. Past Anesthesia/Blood Transfusion Reactions: Previous Problems w/ Anesthesia, Family History of Problems w/ Anesthesia, Motion Sickness, Postoperative Nausea & Vomiting (PONV) Additional Past Anesthesia/Blood Transfusion Reaction / Comment(s): STATES "TERRIBLE " NAUSEA AND VOMITING. TRIES TO PULL OUT IV'S AND TUBES AND TRIES TO GET UP AND LEAVE. PTS MOTHER HAS SAME REACTION TO ANESTHESIA. Past Psychological History: No Psychological Hx Reported Additional Psychological History / Comment(s): CURRENT ANXIETY DUE TO CANCER AND SURGERY. Smoking Status: Never smoker Past Alcohol Use History: None Reported Past Drug Use History: None Reported - Past Family History Father Family Medical History: CVA/TIA, Hypertension Mother Family Medical History: No Reported History Medications and Allergies Home Medications Medication Instructions Recorded Confirmed Type Esomeprazole Magnesium [NexIUM 20 mg PO DAILY 09/19/21 11/27/21 History 24Hr] Amitriptyline HCl [Elavil] 25 mg PO HS #20 tab 09/28/21 11/27/21 Rx Letrozole [Femara] 2.5 mg PO DAILY #30 tab 09/28/21 11/27/21 Rx ALPRAZolam [Xanax] 0.25 mg PO TID PRN 11/27/21 11/27/21 History Ascorbic Acid [Vitamin C] 500 mg PO DAILY 11/27/21 11/27/21 History Aspirin [Adult Low Dose Aspirin EC] 81 mg PO DAILY 11/27/21 11/27/21 History Calcium Carbonate [Calcium] 600 mg PO DAILY 11/27/21 11/27/21 History Docusate [Colace] 100 mg PO DAILY 11/27/21 11/27/21 History Multivitamins, Thera [Multivitamin 1 tab PO DAILY 11/27/21 11/27/21 History (formulary)] Nystatin 100,000 Unit/ml Susp 500,000 unit PO QID PRN 11/27/21 11/27/21 History [Mycostatin Oral Susp] Ondansetron [Zofran] 4 mg PO DIRECTED PRN 11/27/21 11/27/21 History Triamcinolone Acetonide [Nasacort] 1 spray EA NOSTRIL DIRECTED PRN 11/27/21 11/27/21 History Vitamin B Complex 1 each PO DAILY 11/27/21 11/27/21 History Vitamin D3 (Unknown Dose) 1 tab PO DAILY 11/27/21 11/27/21 History Zoledronic Acid [Zometa] 0 mg IVPB Q30D 11/27/21 11/27/21 History traMADol HCL 50 mg PO DIRECTED PRN 11/27/21 11/27/21 History Allergies Allergy/AdvReac Type Severity Reaction Status Date / Time garlic Allergy Swelling Verified 11/29/21 07:53 Iodinated Contrast Media Allergy Swelling Verified 11/29/21 07:53 [Iodinated Contrast- Oral of face and IV Dye] and lips levofloxacin [From Levaquin] Allergy Swelling Verified 11/29/21 07:53 of face and lips amoxicillin trihydrate AdvReac Nausea & Verified 11/29/21 07:53 [From Augmentin] Vomiting gabapentin AdvReac "I felt Verified 11/29/21 07:53 like I was in a stupor and could not function at all hydrocodone AdvReac Hallucinati Verified 11/29/21 07:53 ons metoclopramide HCl AdvReac Hallucinati Verified 11/29/21 07:53 [From Reglan] ons potassium clavulanate AdvReac Nausea & Verified 11/29/21 07:53 [From Augmentin] Vomiting Surgical - Exam Vital Signs Temp Pulse Resp BP Pulse Ox 97.7 F 98 16 137/87 98 11/29/21 08:01 11/29/21 08:01 11/29/21 08:01 11/29/21 08:01 11/29/21 08:01 - General well developed, well nourished, no distress - Eyes PERRL - ENT normal pinna - Neck no masses - Respiratory normal expansion - Cardiovascular Rhythm: regular - Abdomen Abdomen: soft, non tender Results - Labs 11/29/21 08:13 Assessment and Plan Assessment: History of metastatic breast cancer. We'll perform Port-A-Cath placement
--- NOTE | 2021-11-29 09:40 | P.OP ---
Date of Procedure: 11/29/21 Preoperative Diagnosis: Metastatic breast cancer Postoperative Diagnosis: Metastatic breast cancer Procedure(s) Performed: Left subclavian Port-A-Cath placement Anesthesia: KATERINEA Surgeon: Candido Rizvi Estimated Blood Loss (ml): 5 Pathology: none sent Condition: stable Disposition: PACU Description of Procedure: The patient was placed on the operating table in the supine position. The patient received IV sedation. The patient's chest was prepped and draped in the usual sterile fashion. A roll had been placed between the shoulder blades in a longitudinal fashion. After prepping and draping the skin was anesthetized 1% local Xylocaine. And then using the Seldinger technique the subclavian vein was cannulated. A wire was placed into the vein and fluoroscopy position the wire at the atrial caval junction. Next the dilator sheath was placed over top the wire and the wire was withdrawn. The catheter was positioned at the atriocaval position. The catheter was placed through the sheath after the dilator was withdrawn. The sheath was then withdrawn. Position of the catheter was confirmed with fluoroscopy. The Port-A-Cath was connected to the catheter. The Port-A-Cath was flushed with saline and then heparinized saline. The skin was closed interrupted 3-0 Monocryl suture. Dermabond was applied. Patient tolerated procedure well and was sent to recovery room stable condition.
[2021-11-29 09:49] VITALS: RESP 16
[2021-11-29 11:29] VITALS: BP 137/80; PULSE 87
--- NOTE | 2021-11-29 11:41 | XR ---
EXAMINATION TYPE: XR chest 1V portable DATE OF EXAM: 11/29/2021 COMPARISON: X-ray dated 02/18/2015 HISTORY: Port-A-Cath placement TECHNIQUE: Single frontal view of the chest is obtained. FINDINGS: Interval insertion of a left chest wall Port-A-Cath with the tip seen at the superior aspect of the S VC. Scattered subtle opacities in the lungs, nonspecific. This could be related to mild pulmonary infiltr ation/pneumonia however mild pulmonary edema, subtle fibrotic changes or other cause of pulmonary inf iltration cannot be excluded, please correlate clinically. Slightly elevated right hemidiaphragm. No sizable pleural effusion or pneumothorax. No gross cardiome arcelia. Degenerative changes of the thoracic spine and right glenohumeral articulation. IMPRESSION: As above.
--- NOTE | 2021-11-29 16:18 | FL ---
EXAMINATION TYPE: FL guided central line placement DATE OF EXAM: 11/29/2021 CLINICAL HISTORY: Port-A-Cath insertion TECHNIQUE: Fluoroscopic guided procedure FINDINGS: Fluoroscopic guidance was provided during the procedure. A total of 17 seconds of fluorosc opic time was utilized during the procedure and 1 spot image was acquired. IMPRESSION: As Above.
== END 2021-11-29 12:01 | disposition home or self-care (01) ==
LOC: OR 07:31
PROVIDERS: ATTEND Surgery
DX: C50.912 Malignant neoplasm of unspecified site of left female breast (principal); C79.51 Secondary malignant neoplasm of bone; K21.9 Gastro-esophageal reflux disease without esophagitis; K44.9 Diaphragmatic hernia without obstruction or gangrene; B15.9 Hepatitis A without hepatic coma; H26.9 Unspecified cataract; R42 Dizziness and giddiness; Z86.718 Personal history of other venous thrombosis and embolism; Z87.01 Personal history of pneumonia (recurrent); Z87.442 Personal history of urinary calculi; Z79.82 Long term (current) use of aspirin; Z79.899 Other long term (current) drug therapy; Z88.1 Allergy status to other antibiotic agents; Z91.041 Radiographic dye allergy status; Z88.5 Allergy status to narcotic agent; Z88.0 Allergy status to penicillin; Z91.018 Allergy to other foods; Z90.89 Acquired absence of other organs; Z90.49 Acquired absence of other specified parts of digestive tract; Z90.710 Acquired absence of both cervix and uterus; Z98.890 Other specified postprocedural states; Z98.41 Cataract extraction status, right eye; Z82.3 Family history of stroke; Z82.49 Family history of ischemic heart disease and other diseases of the circulatory system
CPT/HCPCS: 36561; 85027; 77001; J2250; J1100; J2405; J0690; J3010; J1642; J2370; J2704; J1644; J2001; 71045

== ENCOUNTER 2021-11-30 05:09 | Inpatient (IN) | payer OTHER ==
[2021-11-30] MEDS ORDERED: IPRATROPIUM-ALBUTEROL 3 ML NEB INHALATION STA (05:13)
[2021-11-30] MEDS ORDERED: SODIUM CHLORIDE 0.9% 1,000 ML IV STA (05:13)
--- NOTE | 2021-11-30 05:14 | ED ---
SOB HPI <Alexi Luther - Last Filed: 11/30/21 05:14> <Monique Red - Last Filed: 11/30/21 14:12> - General Stated Complaint: DONITA, Back Pain Time Seen by Provider: 11/30/21 05:12 - Related Data Home Medications Medication Instructions Recorded Confirmed Esomeprazole Magnesium [NexIUM 20 mg PO DAILY 09/19/21 11/30/21 24Hr] ALPRAZolam [Xanax] 0.25 mg PO TID PRN 11/27/21 11/30/21 Ascorbic Acid [Vitamin C] 500 mg PO DAILY 11/27/21 11/30/21 Calcium Carbonate [Calcium] 600 mg PO DAILY 11/27/21 11/30/21 Docusate [Colace] 100 mg PO DAILY 11/27/21 11/30/21 Multivitamins, Thera [Multivitamin 2 tab PO DAILY 11/27/21 11/30/21 (formulary)] Nystatin 100,000 Unit/ml Susp 500,000 unit PO QID PRN 11/27/21 11/30/21 [Mycostatin Oral Susp] Ondansetron [Zofran] 4 mg PO Q6H PRN 11/27/21 11/30/21 Triamcinolone Acetonide [Nasacort] 1 spray EA NOSTRIL DAILY PRN 11/27/21 11/30/21 Vitamin B Complex 1 cap PO DAILY 11/27/21 11/30/21 Zoledronic Acid [Zometa] 1 dose IVPB Q30D 11/27/21 11/30/21 traMADol HCL 50 mg PO Q6H PRN 11/27/21 11/30/21 Cholecalciferol (Vitamin D3) 250 mcg PO DAILY 11/30/21 11/30/21 [Vitamin D3 (125 MCG = 5,000 IU)] Olopatadine HCl [Pataday] 1 drop BOTH EYES DAILY 11/30/21 11/30/21 Palbociclib [Ibrance] 125 mg PO DIRECTED 11/30/21 11/30/21 Zolpidem [Ambien] 5 mg PO HS PRN 11/30/21 11/30/21 Previous Rx's Medication Instructions Recorded Amitriptyline HCl [Elavil] 25 mg PO HS #20 tab 09/28/21 Letrozole [Femara] 2.5 mg PO DAILY #30 tab 09/28/21 Allergies Allergy/AdvReac Type Severity Reaction Status Date / Time garlic Allergy Swelling Verified 11/30/21 09:24 Iodinated Contrast Media Allergy Swelling Verified 11/30/21 09:24 [Iodinated Contrast- Oral of face and IV Dye] and lips levofloxacin [From Levaquin] Allergy Swelling Verified 11/30/21 09:24 of face and lips amoxicillin trihydrate AdvReac Nausea & Verified 11/30/21 09:24 [From Augmentin] Vomiting gabapentin AdvReac "I felt Verified 11/30/21 09:24 like I was in a stupor and could not function at all hydrocodone AdvReac Hallucinati Verified 11/30/21 09:24 ons metoclopramide HCl AdvReac Hallucinati Verified 11/30/21 09:24 [From Reglan] ons potassium clavulanate AdvReac Nausea & Verified 11/30/21 09:24 [From Augmentin] Vomiting Review of Systems ROS Other: All systems not noted in ROS Statement are negative. <Alexi Luther - Last Filed: 11/30/21 05:14> ROS Other: All systems not noted in ROS Statement are negative. <Monique Red - Last Filed: 11/30/21 14:12> ROS Statement: Those systems with pertinent positive or pertinent negative responses have been documented in the HPI. Past Medical History Past Medical History: Cancer, Deep Vein Thrombosis (DVT), GERD/Reflux Additional Past Medical History / Comment(s): VERTIGO, HX OF DVT'S IN LEGS ( FROM CONTROL PILLS), HX OF KIDNEY STONES, SLIDING HIATAL HERNIA, HEPATITIS A (1989), DIAGNOSED WITH BREAST CANCER 01/2015, HX OF POLYNEPHRITIS & UTIS MULTIPLE TIMES. History of Any Multi-Drug Resistant Organisms: None Reported Past Surgical History: Adenoidectomy, Appendectomy, Hysterectomy, Tonsillectomy Additional Past Surgical History / Comment(s): CATARACT RT EYE, KIDNEY SURG FOR STONES & TORN URETER. , OOPHORECTOMY Past Anesthesia/Blood Transfusion Reactions: Previous Problems w/ Anesthesia, Family History of Problems w/ Anesthesia, Motion Sickness Additional Past Anesthesia/Blood Transfusion Reaction / Comment(s): STATES "TERRIBLE " NAUSEA AND VOMITING. TRYS TO PULL OUT IV'S AND TUBES AND TRYS TO GET UP AND LEAVE. PTS MOTHER HAS SAME REACTION TO ANESTHESIA. Past Psychological History: No Psychological Hx Reported Additional Psychological History / Comment(s): CURRENT ANXIETY DUE TO CANCER AND SURGERY. Past Alcohol Use History: None Reported Past Drug Use History: None Reported - Past Family History Father Family Medical History: CVA/TIA, Hypertension Mother Family Medical History: No Reported History <Alexi Luther - Last Filed: 11/30/21 05:14> Course Vital Signs 11/30/21 11/30/21 11/30/21 05:36 07:36 11:00 Temperature 98.4 F Pulse Rate 89 106 H 99 Respiratory 18 18 20 Rate Blood Pressure 165/97 141/77 165/92 O2 Sat by Pulse 95 95 99 Oximetry 11/30/21 11/30/21 11/30/21 11:50 12:00 12:05 Temperature Pulse Rate 101 H 107 H 102 H Respiratory 18 24 103 H Rate Blood Pressure 144/73 165/88 149/82 O2 Sat by Pulse 100 93 L 93 L Oximetry 11/30/21 11/30/21 11/30/21 12:10 12:15 12:27 Temperature Pulse Rate 105 H 103 H Respiratory 25 H 24 Rate Blood Pressure 170/89 163/82 O2 Sat by Pulse 91 L 95 94 L Oximetry 11/30/21 11/30/21 11/30/21 12:30 12:45 13:00 Temperature Pulse Rate 98 96 91 Respiratory 20 18 18 Rate Blood Pressure 155/83 144/79 127/71 O2 Sat by Pulse 94 L 95 95 Oximetry 11/30/21 11/30/21 13:15 13:45 Temperature Pulse Rate 87 92 Respiratory 24 18 Rate Blood Pressure 128/74 122/72 O2 Sat by Pulse 93 L 92 L Oximetry Medical Decision Making - Lab Data Result diagrams: 11/30/21 06:24 11/30/21 09:42 <Monique Red - Last Filed: 11/30/21 14:12> - Medical Decision Making Patient was signed out to me by Dr. Luther. Pending CT for possible PE. I did review the patient's labs and they are notable for a potassium of 3.3. There was issues with obtaining a line on the patient. Laboratory studies took several hours to get back. CT is finally performed after the patient is pretreated which demonstrates a large left sided pneumothorax. Chest tube placement and hooked to suction. Chest x-ray was performed. patient will be admitted to [facility] .Spoke with Dr. Ya and Dr. Allen. ([facility]) - Lab Data Lab Results 11/30/21 11/30/21 11/30/21 Range/Units 05:13 05:13 06:24 WBC 7.1 (3.8-10.6) k/uL RBC 4.84 (3.80-5.40) m/uL Hgb 13.8 (11.4-16.0) gm/dL Hct 45.0 (34.0-46.0) % MCV 93.0 (80.0-100.0) fL MCH 28.4 (25.0-35.0) pg MCHC 30.6 L (31.0-37.0) g/dL RDW 13.8 (11.5-15.5) % Plt Count 285 (150-450) k/uL MPV 7.2 Neutrophils % 79 % Lymphocytes % 12 % Monocytes % 5 % Eosinophils % 1 % Basophils % 1 % Neutrophils # 5.6 (1.3-7.7) k/uL Lymphocytes # 0.9 L (1.0-4.8) k/uL Monocytes # 0.4 (0-1.0) k/uL Eosinophils # 0.1 (0-0.7) k/uL Basophils # 0.0 (0-0.2) k/uL Hypochromasia Marked PT 9.5 (9.0-12.0) sec INR 0.9 (<1.2) APTT 21.3 L (22.0-30.0) sec Sodium (137-145) mmol/L Potassium (3.5-5.1) mmol/L Chloride (98-107) mmol/L Carbon Dioxide (22-30) mmol/L Anion Gap mmol/L BUN (7-17) mg/dL Creatinine (0.52-1.04) mg/dL Est GFR (CKD-EPI)AfAm (>60 ml/min/1.73 sqM) Est GFR (CKD-EPI)NonAf (>60 ml/min/1.73 sqM) Glucose (74-99) mg/dL Calcium (8.4-10.2) mg/dL Magnesium (1.6-2.3) mg/dL Total Bilirubin (0.2-1.3) mg/dL AST (14-36) U/L ALT (4-34) U/L Alkaline Phosphatase (38-126) U/L Troponin I (0.000-0.034) ng/mL NT-Pro-B Natriuret Pep 235 pg/mL Total Protein (6.3-8.2) g/dL Albumin (3.5-5.0) g/dL 11/30/21 11/30/21 Range/Units 09:42 09:42 WBC (3.8-10.6) k/uL RBC (3.80-5.40) m/uL Hgb (11.4-16.0) gm/dL Hct (34.0-46.0) % MCV (80.0-100.0) fL MCH (25.0-35.0) pg MCHC (31.0-37.0) g/dL RDW (11.5-15.5) % Plt Count (150-450) k/uL MPV Neutrophils % % Lymphocytes % % Monocytes % % Eosinophils % % Basophils % % Neutrophils # (1.3-7.7) k/uL Lymphocytes # (1.0-4.8) k/uL Monocytes # (0-1.0) k/uL Eosinophils # (0-0.7) k/uL Basophils # (0-0.2) k/uL Hypochromasia PT (9.0-12.0) sec INR (<1.2) APTT (22.0-30.0) sec Sodium 138 (137-145) mmol/L Potassium 3.3 L (3.5-5.1) mmol/L Chloride 105 (98-107) mmol/L Carbon Dioxide 25 (22-30) mmol/L Anion Gap 8 mmol/L BUN 12 (7-17) mg/dL Creatinine 0.52 (0.52-1.04) mg/dL Est GFR (CKD-EPI)AfAm >90 (>60 ml/min/1.73 sqM) Est GFR (CKD-EPI)NonAf >90 (>60 ml/min/1.73 sqM) Glucose 140 H (74-99) mg/dL Calcium 8.2 L (8.4-10.2) mg/dL Magnesium 2.1 (1.6-2.3) mg/dL Total Bilirubin 0.4 (0.2-1.3) mg/dL AST 23 (14-36) U/L ALT 12 (4-34) U/L Alkaline Phosphatase 187 H (38-126) U/L Troponin I <0.012 (0.000-0.034) ng/mL NT-Pro-B Natriuret Pep pg/mL Total Protein 6.6 (6.3-8.2) g/dL Albumin 3.8 (3.5-5.0) g/dL - EKG Data EKG Comments: EKG demonstrates sinus tachycardia with a rate of 100. QRS 86. QTC of 395. No acute ST segment elevations or depressions (Monique Red) Disposition <Alexi Luther - Last Filed: 11/30/21 05:14> Is patient prescribed a controlled substance at d/c from ED?: No Time of Disposition: 10:52 Decision to Admit Reason: Admit from EC Decision Date: 11/30/21 Decision Time: 10:52 <Monique Red - Last Filed: 11/30/21 14:12> Clinical Impression: Shortness of breath, Pneumothorax, Breast cancer metastasized to bone Disposition: ADMITTED IP TO THIS HOSP Condition: Serious
[2021-11-30 06:42] LABS: Basophils % (A) 1 %; Eosinophils # (A) 0.1 k/uL (0-0.7); Eosinophils % (A) 1 %; HGB 13.8 gm/dL (11.4-16.0); Hypochromasia Marked; Lymphocytes # (A) 0.9 k/uL (1.0-4.8); Lymphocytes % (A) 12 %; MCH 28.4 pg (25.0-35.0); MCHC 30.6 g/dL (31.0-37.0); Mean Platelet Volume 7.2; Monocytes # (A) 0.4 k/uL (0-1.0); Monocytes % (A) 5 %; Neutrophils # (A) 5.6 k/uL (1.3-7.7); Neutrophils % (A) 79 %; Platelet Count 285 k/uL (150-450); RBC 4.84 m/uL (3.80-5.40); RDW 13.8 % (11.5-15.5); WBC 7.1 k/uL (3.8-10.6)
[2021-11-30 06:55] LABS: INR 0.9 (<1.2); Prothrombin Time 9.5 sec (9.0-12.0)
[2021-11-30] MEDS ORDERED: FAMOTIDINE 20 MG/2 ML VIAL IV STA (07:02)
[2021-11-30] MEDS ORDERED: methylPREDNISolone SOD SUCCI 125 MG/2 ML VIAL IV STA (07:02)
[2021-11-30] MEDS ORDERED: diphenhydrAMINE 50 MG/ML 1 ML VIAL IVP STA (07:02)
[2021-11-30 07:28] LABS: Partial Thromboplastin Time 21.3 sec (22.0-30.0)
[2021-11-30] MEDS ORDERED: HYDROmorphone 1 MG/ML 1 ML SYRINGE IVP STA ×2 (07:46→12:22)
[2021-11-30 10:09] LABS: ALT 12 U/L (4-34); AST 23 U/L (14-36); African American GFR (CKD) >90 (>60 ml/min/1.73 sqM); Albumin 3.8 g/dL (3.5-5.0); Alkaline Phosphatase 187 U/L (38-126); Anion Gap 8 mmol/L; Blood Urea Nitrogen 12 mg/dL (7-17); Calcium 8.2 mg/dL (8.4-10.2); Carbon Dioxide 25 mmol/L (22-30); Chloride 105 mmol/L (98-107); Glucose 140 mg/dL (74-99); Magnesium 2.1 mg/dL (1.6-2.3); Non-African American GFR(CKD) >90 (>60 ml/min/1.73 sqM); Potassium 3.3 mmol/L (3.5-5.1); Sodium 138 mmol/L (137-145); Total Bilirubin 0.4 mg/dL (0.2-1.3); Total Protein 6.6 g/dL (6.3-8.2)
--- NOTE | 2021-11-30 10:42 | CT ---
EXAMINATION TYPE: CT angio chest DATE OF EXAM: 11/30/2021 COMPARISON: CT dated 09/20/2021 HISTORY: Back pain and shortness of breath. History of breast cancer with mets. CT DLP: 225 mGy.cm. Automated Exposure Control for Dose Reduction was Utilized. TECHNIQUE AND CONTRAST: CTA scan of the thorax is performed with IV Contrast, patient injected with 50ml mL of Isovue 370, pu lmonary embolism protocol. MIP Images are created on an independent workstation and reviewed. FINDINGS: Large left-sided pneumothorax measuring up to 8.2 cm at the anterior aspect of the left hemithorax. A ssociated partial collapse of the posterior aspect of the left upper lobe, lingula and the left lower lobe. Bilateral pleural effusions, slightly larger on the right side. Persistent suspicious infiltrating lesion surrounding the inferior aspect of the trachea, main bronch i, retrocardiac location and extending into the medial aspect of the right lower lobe. Complete obstr uction of the bronchus intermedius. Enlarging pulmonary lesions measuring up to 4.1 cm in the posteri or aspect of the right lung compared to 1.4 cm previously. Markedly attenuated right middle and lower lobe pulmonary arteries. No definite filling defect within the pulmonary trunk, main pulmonary arteries, other lobar and segmental branches to suggest pulmonar y embolism. Subsegmental branches are suboptimally assessed. Scattered arterial atherosclerotic calci fications. No gross cardiomegaly. Interval insertion of a left upper chest wall Port-A-Cath with the tip is seen within the superior as pect of the SVC. Mild soft tissue emphysema is seen in the left upper chest wall as well as in the rodriguez perior mediastinum and lower neck. Persistent enlarged mediastinal and axillary lymph nodes, likely m etastatic. Left upper pole renal cyst. Known extensive osseous metastatic lesions. IMPRESSION: No major central pulmonary embolism. Large left-sided pneumothorax with partial collapse of the left lung as described above. Recommend urgent intervention for the pneumothorax. Progressive lung lesions , likely metastatic. Other metastatic disease as described above. Findings were discussed with the ER physician immediately after the CT scan was performed.
[2021-11-30] MEDS ORDERED: ETOMIDATE 2 MG/ML 10 ML VIAL IVP STA ×2 (11:14→12:13)
[2021-11-30] MEDS ORDERED: NALOXONE 0.4 MG/ML 1 ML VIAL IV PRN (11:32)
[2021-11-30] MEDS ORDERED: LIDOCAINE 1% INJ 10MG/ML (5 ML VIAL-PF) SQ ONE (11:39)
[2021-11-30] MEDS: ONDANSETRON 4 MG/2 ML VIAL IVP PRN ×2 (12:37→22:57)
[2021-11-30] MEDS ORDERED: FLUTICASONE 50MCG/SPRAY NASAL 16GM EA NOSTRIL PRN (13:42)
--- NOTE | 2021-11-30 13:59 | XR ---
EXAMINATION TYPE: XR chest 1V confirm line [facility] DATE OF EXAM: 11/30/2021 COMPARISON: X-ray dated 11/29/2021 HISTORY: Confirm tube placement TECHNIQUE: Single frontal view of the chest is obtained. FINDINGS: A drainage tube is seen inserted in the left side of the chest superimposed on the left mid lung zone . No obvious pneumothorax identified by this x-ray. No cardiomediastinal shift. The rest is unchanged compared to the previous recent CT scan, kindly refer to its detailed report. Follow-up inspiratory/expiratory x-ray can be considered if clinically required. IMPRESSION: As above.
[2021-11-30] MEDS: CALCIUM CARBONATE 500 MG CHEWABLE PO SCH (14:27)
[2021-11-30] MEDS: DOCUSATE 100 MG CAP PO SCH (14:28)
[2021-11-30] MEDS: MULTIVITAMINS, THERA 1 EACH TAB PO SCH (14:28)
[2021-11-30] MEDS: PANTOPRAZOLE 40 MG TABLET PO SCH (14:29)
[2021-11-30] MEDS: ASCORBIC ACID 500 MG TAB PO SCH (14:29)
[2021-11-30] MEDS: PALBOCICLIB 125 MG PO SCH (14:31)
[2021-11-30] MEDS: CHOLECALCIFEROL 10 MCG (400 IU) TABLET PO SCH (17:52)
[2021-11-30] MEDS: LETROZOLE 2.5 MG TAB PO SCH (17:52)
[2021-11-30] MEDS: KETOTIFEN 0.025% OPHTH DROPS 5 ML BTL BOTH EYES SCH ×2 (17:53→23:34)
--- NOTE | 2021-11-30 17:57 | XR ---
EXAMINATION TYPE: XR Hip Complete LT DATE OF EXAM: 11/30/2021 5:21 PM INDICATION: Patient age:Female; 65 years old; Reason for study: h/o fall recent surgery; . COMPARISON: Left femur 09/18/2021 TECHNIQUE: The left hip was examined in the frontal and lateral projections FINDINGS: Left fixation hardware in place. Hardware appears intact. No evidence for acute fracture. E xcreted IV contrast seen within urinary bladder.No evidence of any acute osseous pathology, joint dis location, or soft tissue swelling. IMPRESSION: 1. No acute osseous pathology. 2. Left hip fixation hardware which appears intact.
[2021-11-30] MEDS: traMADol 50 MG TAB PO PRN (17:58)
--- NOTE | 2021-11-30 21:15 | HP ---
HISTORY AND PHYSICAL DATE OF SERVICE: 11/30/2021. CHIEF COMPLAINTS: Left-sided chest pain as well as shortness of breath. HISTORY OF PRESENT ILLNESS: This 65-year-old woman with a past medical history of DVT, history of GERD, history of CA of breast with METS to the bone, being followed by Dr. Oates in the outpatient setting, was previously admitted here with left hip fracture, possibly pathological fracture and the patient had intramedullary nailing and the patient had a port placement by Dr. Rizvi yesterday and subsequently patient went home. Patient was having chest pains and subsequently patient had shortness of breath early in the morning. Patient came to [facility]. A CT scan showed pneumothorax and the patient had chest tube insertion and the patient admitted for evaluation and treatment. A postprocedure chest x-ray showed no obvious pneumothorax. There is no history of fever, rigors, chills at this time. The patient also had a fall on the left hip. PAST MEDICAL HISTORY: History of DVT, history of CA of breast with mets, history of left hip fracture. ALLERGIES: ALLERGIES ARE REVIEWED AND INCLUDE GARLIC. Home medications include Elavil. Dose and the rest of medications reviewed. REVIEW OF SYSTEM: 14 point review of systems is negative otherwise as mentioned earlier. PHYSICAL EXAMINATION: Pulse 88, blood pressure 133/72, respirations 16, temperature 98 degrees. HEENT: Conjunctivae normal. Neck: No JVD. CARDIOVASCULAR: S1, S2 muffled. RESPIRATORY: Breath sounds diminished in the bases. A few scattered rhonchi. Breath sounds diminished in the left side. ABDOMEN: Soft, nontender. LEGS: Status post surgery. NERVOUS SYSTEM: No focal deficits. LABS: CBC within normal limits. Sodium 130, potassium 3.3. ASSESSMENT: 1. Left-sided pneumothorax status post chest tube drainage. 2. History of CA breast with mets. 3. Left hip pathological fracture status post intramedullary nailing. 4. History of deep vein thrombosis. 5. History of gastroesophageal reflux disease. 6. Multiple medical issues. RECOMMENDATIONS AND DISCUSSION: This 65-year-old woman who presented with multiple complex medical issues, we will monitor the patient closely, continue the current medications. We will consult pulmonology and Dr. Chen and oncology team. Otherwise, we will resume the home medications. Chest tube drainage. Symptomatic treatment. The patient also complained of left hip pain and pain management. X-rays of the hip and an orthopedic evaluation also. The prognosis guarded because of multiple complex medical issues. Further recommendations to follow. A copy of this dictation being forward to Dr. Oates who is the primary physician. NISREEN / MIGUEL: [id number] /
[2021-11-30] MEDS: AMITRIPTYLINE HCL 25 MG TAB PO SCH (22:32)
[2021-11-30] MEDS: ZOLPIDEM 5 MG TAB PO PRN (22:32)
[2021-11-30] MEDS: HYDROmorphone 0.5 MG/0.5 ML SYRINGE IVP PRN (22:33)
--- NOTE | 2021-11-30 23:29 | XR ---
EXAMINATION TYPE: XR chest 1V portable DATE OF EXAM: 11/30/2021 COMPARISON: Today HISTORY: Tube placement TECHNIQUE: Single view FINDINGS: There is left-sided chest tube with the tip over the lateral left upper lobe. No pneumothor ax. Trachea is midline. There is some atelectasis and pleural reaction at both lung bases. No heart f ailure. There is left-sided central venous catheter with tip in the superior vena cava. IMPRESSION: Basilar pulmonary mild infiltrates and atelectasis and pleural reaction which is not sadler ged compared to exam of 10 hours ago. No pneumothorax.
[2021-12-01] MEDS: HEPARIN SODIUM,PORCINE/PF 5,000 UNIT/0.5 ML SYRINGE SQ SCH ×3 (00:18→21:05)
[2021-12-01] MEDS: HYDROmorphone 0.5 MG/0.5 ML SYRINGE IVP PRN ×3 (02:13→08:30)
[2021-12-01] MEDS: PALBOCICLIB 125 MG PO SCH (07:54)
[2021-12-01] MEDS: DOCUSATE 100 MG CAP PO SCH (08:09)
[2021-12-01] MEDS: CHOLECALCIFEROL 10 MCG (400 IU) TABLET PO SCH (08:10)
[2021-12-01] MEDS: PANTOPRAZOLE 40 MG TABLET PO SCH (08:10)
[2021-12-01] MEDS: CALCIUM CARBONATE 500 MG CHEWABLE PO SCH (08:10)
[2021-12-01] MEDS: LETROZOLE 2.5 MG TAB PO SCH (08:10)
[2021-12-01] MEDS: ASCORBIC ACID 500 MG TAB PO SCH (08:10)
[2021-12-01] MEDS: MULTIVITAMINS, THERA 1 EACH TAB PO SCH (08:10)
[2021-12-01] MEDS: KETOTIFEN 0.025% OPHTH DROPS 5 ML BTL BOTH EYES SCH ×2 (08:14→21:48)
--- NOTE | 2021-12-01 10:19 | XR ---
EXAMINATION TYPE: XR chest 1V portable DATE OF EXAM: 12/01/2021 CLINICAL HISTORY: Difficulty breathing progress study. Left-sided chest tube. Metastatic breast [facility]. TECHNIQUE: Single AP portable frontal view of the chest is obtained. COMPARISON: Chest x-ray from one day earlier and older studies. FINDINGS: Stable left subclavian central venous catheter. Stable left-sided chest tube. No visualized pneumothorax. Bibasilar opacities consistent with tiny bilateral pleural effusions and associated bibasilar acute infiltrates and/or atelectasis. New left midlung opacity. Cardiac silhouet te size stable and upper limits of normal. Degenerative changes right glenohumeral joint. IMPRESSION: Left sided chest tube without visualized pneumothorax. Persistent tiny bilateral pleural effusions and bibasilar acute infiltrates and/or atelectasis. New left midlung acute infiltrate.
[2021-12-01 10:42] LABS: Basophils # (A) 0.02 X 10*3/uL (0.00-0.10); Basophils % (A) 0.3 %; Eosinophils # (A) 0.02 X 10*3/uL (0.04-0.35); Eosinophils % (A) 0.3 %; HCT 35.5 % (37.2-46.3); HGB 10.4 g/dL (12.0-15.0); Immature Grans, Automated 0.5 %; Lymphocytes # (A) 1.03 X 10*3/uL (0.90-5.00); Lymphocytes % (A) 16.9 %; MCH 27.2 pg (27.0-32.0); MCHC 29.3 g/dL (32.0-37.0); MCV 92.7 fL (80.0-97.0); Mean Platelet Volume 9.5 fL (9.5-12.2); Monocytes # (A) 0.63 X 10*3/uL (0.20-1.00); Monocytes % (A) 10.4 %; NRBC Per 100 WBC 0 /100 WBCS (0.0-0.0); Neutrophils # (A) 4.35 X 10*3/uL (1.80-7.70); Neutrophils % (A) 71.6 %; Platelet Count 230 X 10*3/uL (140-440); RBC 3.83 X 10*6/uL (4.10-5.20); RDW 13.9 % (11.5-14.5); WBC 6.08 X 10*3/uL (4.50-10.00)
--- NOTE | 2021-12-01 10:52 | P.CNOR ---
History of Present Illness - [facility] Consult date: 12/01/21 Consult reason: other (Left hip pain) History of present illness: The patient is a 65 y/o female who presented to the ER at [facility] with shortness of breath and was found to have a pneumothorax. She is status post left hip long IT nail by Dr. Lencho Herbert on 09/18/21 for a pathological fracture of the left hip. She states she was folding clothes and pillow fell on the ground. The patient tripped over the pillow and fell about 2 weeks ago. She states her knee was a little sore but her hip felt fine. She didn't call the office because she didn't have pain. X-rays were taken on admission and were normal. Orthopedics was consulted for evaluation of her left hip since the fall. Review of Systems Constitutional: Denies chills, Denies fatigue, Denies fever Cardiovascular: Denies chest pain, Denies shortness of breath Respiratory: Denies cough Gastrointestinal: Denies diarrhea, Denies nausea, Denies vomiting Musculoskeletal: left: hip stiffness Past Medical History Past Medical History: Cancer, Deep Vein Thrombosis (DVT), GERD/Reflux Additional Past Medical History / Comment(s): VERTIGO, HX OF DVT'S IN LEGS ( FROM CONTROL PILLS), HX OF KIDNEY STONES, SLIDING HIATAL HERNIA, HEPATITIS A (1989), DIAGNOSED WITH BREAST CANCER 01/2015, HX OF POLYNEPHRITIS & UTIS MULTIPLE TIMES. History of Any Multi-Drug Resistant Organisms: None Reported Past Surgical History: Adenoidectomy, Appendectomy, Hysterectomy, Tonsillectomy Additional Past Surgical History / Comment(s): CATARACT RT EYE, KIDNEY SURG FOR STONES & TORN URETER. , OOPHORECTOMY Past Anesthesia/Blood Transfusion Reactions: Previous Problems w/ Anesthesia, Family History of Problems w/ Anesthesia, Motion Sickness Additional Past Anesthesia/Blood Transfusion Reaction / Comm: STATES "TERRIBLE " NAUSEA AND VOMITING. TRYS TO PULL OUT IV'S AND TUBES AND TRYS TO GET UP AND LEAVE. PTS MOTHER HAS SAME REACTION TO ANESTHESIA. Past Psychological History: No Psychological Hx Reported Additional Psychological History / Comment(s): CURRENT ANXIETY DUE TO CANCER AND SURGERY. Smoking Status: Never smoker Past Alcohol Use History: None Reported Past Drug Use History: None Reported - Past Family History Father Family Medical History: CVA/TIA, Hypertension Mother Family Medical History: Dementia Additional Family Medical History / Comment(s): 2020 of COVID and stroke Medications and Allergies Home Medications Medication Instructions Recorded Confirmed Type Esomeprazole Magnesium [NexIUM 20 mg PO DAILY 09/19/21 11/30/21 History 24Hr] Amitriptyline HCl [Elavil] 25 mg PO HS #20 tab 09/28/21 11/30/21 Rx Letrozole [Femara] 2.5 mg PO DAILY #30 tab 09/28/21 11/30/21 Rx ALPRAZolam [Xanax] 0.25 mg PO TID PRN 11/27/21 11/30/21 History Ascorbic Acid [Vitamin C] 500 mg PO DAILY 11/27/21 11/30/21 History Calcium Carbonate [Calcium] 600 mg PO DAILY 11/27/21 11/30/21 History Docusate [Colace] 100 mg PO DAILY 11/27/21 11/30/21 History Multivitamins, Thera [Multivitamin 2 tab PO DAILY 11/27/21 11/30/21 History (formulary)] Nystatin 100,000 Unit/ml Susp 500,000 unit PO QID PRN 11/27/21 11/30/21 History [Mycostatin Oral Susp] Ondansetron [Zofran] 4 mg PO Q6H PRN 11/27/21 11/30/21 History Triamcinolone Acetonide [Nasacort] 1 spray EA NOSTRIL DAILY PRN 11/27/21 11/30/21 History Vitamin B Complex 1 cap PO DAILY 11/27/21 11/30/21 History Zoledronic Acid [Zometa] 1 dose IVPB Q30D 11/27/21 11/30/21 History traMADol HCL 50 mg PO Q6H PRN 11/27/21 11/30/21 History Cholecalciferol (Vitamin D3) 250 mcg PO DAILY 11/30/21 11/30/21 History [Vitamin D3 (125 MCG = 5,000 IU)] Olopatadine HCl [Pataday] 1 drop BOTH EYES DAILY 11/30/21 11/30/21 History Palbociclib [Ibrance] 125 mg PO DIRECTED 11/30/21 11/30/21 History Zolpidem [Ambien] 5 mg PO HS PRN 11/30/21 11/30/21 History Allergies Allergy/AdvReac Type Severity Reaction Status Date / Time garlic Allergy Swelling Verified 11/30/21 09:24 Iodinated Contrast Media Allergy Swelling Verified 11/30/21 09:24 [Iodinated Contrast- Oral of face and IV Dye] and lips levofloxacin [From Levaquin] Allergy Swelling Verified 11/30/21 09:24 of face and lips amoxicillin trihydrate AdvReac Nausea & Verified 11/30/21 09:24 [From Augmentin] Vomiting gabapentin AdvReac "I felt Verified 11/30/21 09:24 like I was in a stupor and could not function at all hydrocodone AdvReac Hallucinati Verified 11/30/21 09:24 ons metoclopramide HCl AdvReac Hallucinati Verified 11/30/21 09:24 [From Reglan] ons potassium clavulanate AdvReac Nausea & Verified 11/30/21 09:24 [From Augmentin] Vomiting Physical Examination The patient is a 65 y.o. female in no acute distress. She is alert and oriented x3. Exam of the left hip reveals healed incisions to the lateral hip. There is moderate swelling to the hip, which is improving since surgery. No pain to palpation or on internal and external rotation of the hip. Calf is soft and nontender. Neurological and circulatory status is intact. Results X-rays of the left hip reveal good position and alignment of the long IT nail. No new fractures seen. - Labs Labs: Abnormal Lab Results - Last 24 Hours (Table) 11/30/21 12/01/21 Range/Units 17:19 06:50 RBC 3.83 L (4.10-5.20) X 10*6/uL Hgb 10.4 L (12.0-15.0) g/dL Hct 35.5 L (37.2-46.3) % MCHC 29.3 L (32.0-37.0) g/dL Eosinophils # 0.02 L (0.04-0.35) X 10*3/uL D-Dimer 1.40 H (<0.60) mg/L FEU H & H 11/30/21 12/01/21 Range/Units 06:24 06:50 Hgb 13.8 10.4 L (11.4-16.0) gm/dL Hct 45.0 35.5 L (34.0-46.0) % Coagulation 11/30/21 Range/Units 05:13 INR 0.9 (<1.2) Result Diagrams: 12/01/21 06:50 12/01/21 06:55 Assessment and Plan (1) Breast cancer metastasized to bone Current Visit: Yes Status: Acute Code(s): C50.919 - MALIGNANT NEOPLASM OF UNSP SITE OF UNSPECIFIED FEMALE BREAST; C79.51 - SECONDARY MALIGNANT NEOPLASM OF BONE SNOMED Code(s): 066318973 (2) Pathological fracture of left femur Current Visit: No Status: Acute Priority: High Code(s): M84.452A - PATHOLO GICAL FRACTURE, LEFT FEMUR, INIT ENCNTR FOR FRACTURE SNOMED Code(s): 474233712 Plan: The clinical and x-ray findings were discussed with the patient and her . The case was discussed with Dr. Lencho Herbert. No new fractures were seen on x-ray. Continue activities as tolerated to the left hip. She has an appointment with Dr. Herbert at the end of December. She may follow up then or sooner is issues arise. We will sign off at this time.
[2021-12-01 10:57] LABS: ALT 10 U/L (8-44); AST 15 U/L (13-35); African American GFR (CKD) 117.7 (60.0-200.0); Albumin 3.3 g/dL (3.8-4.9); Albumin/Globulin Ratio 1.43 (1.60-3.17); Alkaline Phosphatase 157 U/L (41-126); Blood Urea Nitrogen 10.4 mg/dL (9.0-27.0); Carbon Dioxide 23.8 mmol/L (20.0-27.5); Chloride 109 mmol/L (96-109); Globulin 2.3 g/dL (1.6-3.3); Glucose 89 mg/dL (70-110); Non-African American GFR(CKD) 101.6 (60.0-200.0); Potassium 3.8 mmol/L (3.5-5.5); Sodium 141 mmol/L (135-145); Total Bilirubin <0.15 mg/dL (0.30-1.20); Total Protein 5.6 g/dL (6.2-8.2)
[2021-12-01] MEDS: ALPRAZolam 0.25 MG TAB PO PRN (11:52)
--- NOTE | 2021-12-01 12:04 | P.CNPUL ---
History of Present Illness Consult date: 12/01/21 Requesting physician: Burt E Bhakti Reason for consult: pneumothorax, abnormal CXR/CT Chief complaint: Shortness of breath History of present illness: This is a very pleasant 65-year-old female patient who has a known history of metastatic breast cancer diagnosed in 2014, currently on oral chemotherapy, DVT of the lower extremities, recent left pathological femur fracture status post IM nail placement in September 2021. On 11/29/2021 she had a left subclavian Port-A-Cath placement for her metastatic breast cancer and being started on Ibrance. On 11/30/2021 she presented here to the emergency room with shortness of breath and was found to have a significant left-sided pneumothorax. Thora-V ent was placed in the emergency room. She is seen today in consultation on the regular medical floor. She is currently resting comfortably in bed. Awake and alert in no acute distress. Left-sided chest tube to wall suction. She is maintaining good O2 saturations in the upper 90s on 2 L/m per nasal cannula. She's been afebrile. Hemodynamically stable. White count 6.0. Hemoglobin 10.4. Platelets 230. Sodium 141. Potassium 3.8. BUN 10. Creatinine 0.5. She is on heparin for DVT prophylaxis. Review of Systems REVIEW OF SYSTEMS: CONSTITUTIONAL: Denies any recent significant weight loss or weight gain. EYES: Denies change in vision. EARS, NOSE, MOUTH, THROAT: Denies headaches, denies sore throat. CARDIOVASCULAR: Denies chest pain, palpitations or syncopal episodes. RESPIRATORY: Positive for shortness of breath, no cough, congestion or hemoptysis. GASTROINTESTINAL: Denies change in appetite, denies abdominal pain GENITOURINARY: Denies hematuria, denies infections. MUSKULOSKELETAL: Denies pain, denies swelling. INTEGUMENTARY: Denies rash, denies eczema. NEUROLOGICAL: Denies recent memory loss, no recent seizure activity. PSYCHIATRIC: Denies anxiety, denies depression. HEMATOLOGIC/LYMPHATIC: Denies anemia, denies enlarged lymph nodes. Past Medical History Past Medical History: Cancer, Deep Vein Thrombosis (DVT), GERD/Reflux Additional Past Medical History / Comment(s): VERTIGO, HX OF DVT'S IN LEGS ( FROM CONTROL PILLS), HX OF KIDNEY STONES, SLIDING HIATAL HERNIA, HEPATITIS A (1989), DIAGNOSED WITH BREAST CANCER 01/2015, HX OF POLYNEPHRITIS & UTIS MULTIPLE TIMES. History of Any Multi-Drug Resistant Organisms: None Reported Past Surgical History: Adenoidectomy, Appendectomy, Hysterectomy, Tonsillectomy Additional Past Surgical History / Comment(s): CATARACT RT EYE, KIDNEY SURG FOR STONES & TORN URETER. , OOPHORECTOMY Past Anesthesia/Blood Transfusion Reactions: Previous Problems w/ Anesthesia, Family History of Problems w/ Anesthesia, Motion Sickness Additional Past Anesthesia/Blood Transfusion Reaction / Comment(s): STATES "TERRIBLE " NAUSEA AND VOMITING. TRYS TO PULL OUT IV'S AND TUBES AND TRYS TO GET UP AND LEAVE. PTS MOTHER HAS SAME REACTION TO ANESTHESIA. Past Psychological History: No Psychological Hx Reported Additional Psychological History / Comment(s): CURRENT ANXIETY DUE TO CANCER AND SURGERY. Smoking Status: Never smoker Past Alcohol Use History: None Reported Past Drug Use History: None Reported - Past Family History Father Family Medical History: CVA/TIA, Hypertension Mother Family Medical History: Dementia Additional Family Medical History / Comment(s): 2020 of COVID and stroke Medications and Allergies Home Medications Medication Instructions Recorded Confirmed Type Esomeprazole Magnesium [NexIUM 20 mg PO DAILY 09/19/21 11/30/21 History 24Hr] Amitriptyline HCl [Elavil] 25 mg PO HS #20 tab 09/28/21 11/30/21 Rx Letrozole [Femara] 2.5 mg PO DAILY #30 tab 09/28/21 11/30/21 Rx ALPRAZolam [Xanax] 0.25 mg PO TID PRN 11/27/21 11/30/21 History Ascorbic Acid [Vitamin C] 500 mg PO DAILY 11/27/21 11/30/21 History Calcium Carbonate [Calcium] 600 mg PO DAILY 11/27/21 11/30/21 History Docusate [Colace] 100 mg PO DAILY 11/27/21 11/30/21 History Multivitamins, Thera [Multivitamin 2 tab PO DAILY 11/27/21 11/30/21 History (formulary)] Nystatin 100,000 Unit/ml Susp 500,000 unit PO QID PRN 11/27/21 11/30/21 History [Mycostatin Oral Susp] Ondansetron [Zofran] 4 mg PO Q6H PRN 11/27/21 11/30/21 History Triamcinolone Acetonide [Nasacort] 1 spray EA NOSTRIL DAILY PRN 11/27/21 11/30/21 History Vitamin B Complex 1 cap PO DAILY 11/27/21 11/30/21 History Zoledronic Acid [Zometa] 1 dose IVPB Q30D 11/27/21 11/30/21 History traMADol HCL 50 mg PO Q6H PRN 11/27/21 11/30/21 History Cholecalciferol (Vitamin D3) 250 mcg PO DAILY 11/30/21 11/30/21 History [Vitamin D3 (125 MCG = 5,000 IU)] Olopatadine HCl [Pataday] 1 drop BOTH EYES DAILY 11/30/21 11/30/21 History Palbociclib [Ibrance] 125 mg PO DIRECTED 11/30/21 11/30/21 History Zolpidem [Ambien] 5 mg PO HS PRN 11/30/21 11/30/21 History Allergies Allergy/AdvReac Type Severity Reaction Status Date / Time garlic Allergy Swelling Verified 11/30/21 09:24 Iodinated Contrast Media Allergy Swelling Verified 11/30/21 09:24 [Iodinated Contrast- Oral of face and IV Dye] and lips levofloxacin [From Levaquin] Allergy Swelling Verified 11/30/21 09:24 of face and lips amoxicillin trihydrate AdvReac Nausea & Verified 11/30/21 09:24 [From Augmentin] Vomiting gabapentin AdvReac "I felt Verified 11/30/21 09:24 like I was in a stupor and could not function at all hydrocodone AdvReac Hallucinati Verified 11/30/21 09:24 ons metoclopramide HCl AdvReac Hallucinati Verified 11/30/21 09:24 [From Reglan] ons potassium clavulanate AdvReac Nausea & Verified 11/30/21 09:24 [From Augmentin] Vomiting Physical Exam Vitals: Vital Signs Temp Pulse Pulse Resp BP BP Pulse Ox 12/01/21 02:00 98.0 F 75 18 116/69 98 11/30/21 22:55 107 H 22 196/101 97 11/30/21 20:00 98.3 F 75 18 148/76 96 11/30/21 19:11 98.3 F 86 18 151/84 98 11/30/21 14:46 98 F 88 16 133/76 98 11/30/21 13:45 92 18 122/72 92 L 11/30/21 13:15 87 24 128/74 93 L 11/30/21 13:00 91 18 127/71 95 11/30/21 12:45 96 18 144/79 95 11/30/21 12:30 98 20 155/83 94 L 11/30/21 12:27 94 L 11/30/21 12:15 103 H 24 163/82 95 11/30/21 12:10 105 H 25 H 170/89 91 L 11/30/21 12:05 102 H 103 H 149/82 93 L 11/30/21 12:00 107 H 24 165/88 93 L Intake and Output 11/30/21 12/01/21 12/01/21 22:59 06:59 14:59 Intake Total 200 Balance 200 Intake: Oral 200 Other: # Voids 1 GENERAL EXAM: Alert, 65-year-old female patient, on 2 L nasal cannula, comfortable in no apparent distress. HEAD: Normocephalic. EYES: Normal reaction of pupils, equal size. NOSE: Clear with pink turbinates. THROAT: No erythema or exudates. NECK: No masses, no JVD. CHEST: No chest wall deformity. Left sided Thora-Vent in place. Mediport in place. LUNGS: Equal air entry with no crackles, wheeze, rhonchi or dullness. CVS: S1 and S2 normal with no audible murmur, regular rhythm. ABDOMEN: No hepatosplenomegaly, normal bowel sounds, no guarding or rigidity. SPINE: No scoliosis or deformity SKIN: No rashes CENTRAL NERVOUS SYSTEM: No focal deficits, tone is normal in all 4 extremities. EXTREMITIES: There is no peripheral edema. No clubbing, no cyanosis. Peripheral pulses are intact. Results - Laboratory Findings CBC and BMP: 12/01/21 06:50 12/01/21 06:55 PT/INR, D-dimer PT 9.5 sec (9.0-12.0) 11/30/21 05:13 INR 0.9 (<1.2) 11/30/21 05:13 D-Dimer 1.40 mg/L FEU (<0.60) H 11/30/21 17:19 Abnormal lab findings: Abnormal Labs 11/30/21 11/30/21 11/30/21 05:13 06:24 09:42 RBC Hgb Hct MCHC 30.6 L Lymphocytes # 0.9 L Eosinophils # APTT 21.3 L D-Dimer Potassium 3.3 L Anion Gap Creatinine BUN/Creatinine Ratio Glucose 140 H Calcium 8.2 L Total Bilirubin Alkaline Phosphatase 187 H Total Protein Albumin Albumin/Globulin Ratio 11/30/21 12/01/21 12/01/21 17:19 06:50 06:55 RBC 3.83 L Hgb 10.4 L Hct 35.5 L MCHC 29.3 L Lymphocytes # Eosinophils # 0.02 L APTT D-Dimer 1.40 H Potassium Anion Gap 8.20 L Creatinine 0.5 L BUN/Creatinine Ratio 20.80 H Glucose Calcium 8.0 L Total Bilirubin <0.15 L Alkaline Phosphatase 157 H Total Protein 5.6 L Albumin 3.3 L Albumin/Globulin Ratio 1.43 L - Diagnostic Findings Chest x-ray: image reviewed Assessment and Plan Assessment: 1 Iatrogenic left-sided pneumothorax secondary to recent left-sided Mediport placement 2 History of metastatic breast cancer 3 History of DVT 4 History of esophageal reflux disease History of vertigo Plan: The patient was seen and evaluated We will discontinue wall suction Follow-up chest x-ray in 1 hour Titrate the FiO2 as tolerated WHe'll continue to follow and make further recommendations based on her clinical status I have personally seen and examined the patient, performed the documentation and the assessment and plan as written. Number of minutes spent on the visit: 10.
[2021-12-01] MEDS: traMADol 50 MG TAB PO PRN (13:40)
--- NOTE | 2021-12-01 14:33 | XR ---
EXAMINATION TYPE: XR chest 1V portable DATE OF EXAM: 12/01/2021 2:21 PM COMPARISON: Multiple radiographs, with the most recent on 12/01/2021 TECHNIQUE: XR chest 1V portable Portable AP radiograph of the chest. CLINICAL INDICATION:Female, 65 years old with history of s/p removal of thora-vent left upper lobe; FINDINGS: Lungs/Pleura: Blunting of the right costophrenic angle. There is basilar atelectasis changes. There i s no evidence of pneumothorax. No focal consolidation. Pulmonary vascularity: Unremarkable. Heart/mediastinum: Cardiomediastinal silhouette is unremarkable. Musculoskeletal: No acute osseous pathology. Lines/Tubes: [id number] projecting over the left hemithorax with distal tip at the cavoatrial junction. IMPRESSION: 1. No evidence for left-sided pneumothorax. 2. Low lung volumes with atelectasis changes. 3. Trace right pleural effusion
[2021-12-01 18:57] LABS: % Iron Saturation 22.32 (12.00-45.00)
[2021-12-01] MEDS: SENNOSIDES-DOCUSATE SODIUM 1 EACH TAB PO SCH (19:36)
[2021-12-01] MEDS: AMITRIPTYLINE HCL 25 MG TAB PO SCH (21:04)
[2021-12-01] MEDS: ZOLPIDEM 5 MG TAB PO PRN (21:04)
--- NOTE | 2021-12-01 21:22 | P.CONS ---
History of Present Illness - Reason for Consult Consult date: 12/01/21 Breast Cancer Requesting physician: Filiberto Oneill - History of Present Illness Ms Pereira is a pleasant postmenopausal WF, who had noted a small lump in the inner lower part of her left breast in the fall of 2013. She did not really get it evaluated, as she was busy with work and personal issues. In 01/22, she noted that the lump was definitely bigger, and there was wrinkling of the overlying skin, as well as inversion of the nipple. She was referred to Dr Rizvi, and even before her exam with him, developed pain, radiating to the left axilla. She had a core biopsy in the office, positive for invasive ductal carcinoma. The tumor was felt to be fairly large, with possibility of skin involvement. She was thus referred here. Her prior mammogram was in her mid 30's. Her mammogram and US were done on 02/10/15 but those reports, as well as ER/ME/Her2 were not available at the time of her initial consult on 02/11/15. Based on the tumor size, initial staging with PET or CT/bone scans, as well as waiting for the Her 2 results was recommended. Despite strong recommendations for the same by myself and Dr Rizvi, the pt insisted on proceeding with immediate surgery, with b/l mastectomy. She had surgery on 02/18/15, with no significant complications. The right breast was negative. The left revealed a 3.5 cm IDC, with no nodes detected despite removal of level 1 axillary contents. She agree to imaging post surgery, with Ct C/A/P and bone scan being negative. As above. The patient was seen in the office last in 03/24. Based on her pathology and tumor stage ( HER 2 did come back negative) adjuvant chemotherapy, radiation and hormonal manipulation was strongly recommended. However patient decided against any conventional adjuvant treatment, and did not follow-up in the office after 03/24. The patient was then seen in consult in a [facility] on 09/19/21. She had slipped on the ice on 08/09/21 and had subsequently developed left upper thigh/left hip pain. This had progressively gotten worse. She was seen by orthopedics and on imaging was suspected to have pathologic fracture. The patient had ORIF with biopsy on 09/18/21. Biopsy came back positive for metastatic breast cancer. Postoperative course was completed by incision site hematoma, which improved with holding post operative anticoagulation. Bone scan on 09/24/21 showed multiple areas of uptake including mid right humerus him a left humerus diaphoresis, multiple bilateral ribs, upper thoracic, lower thoracic and upper lumbar spine as well as proximal sacrum. Multiple areas was seen in the left greater trochanter, and acetabulum on the right. There are also multiple punctate areas in the calvarium. CT chest abdomen and pelvis confirmed multiple bone metastases, bilateral scattered lung nodules, a large mediastinal and right hilar mass, along with right paratracheal and left axillary adenopathy. The patient was started on letrozole inpatient. She is also referred to radiation oncology for postoperative radiation. She was seen for her first office visit on 10/18/21 The patient completed radiation to the left thigh on 10/23/21. She also started having increased pain to the right hip and sacrum, which improved with RT to that area, completed also in mid 10/29. Her marked pain in the right buttock area radiating down to the right leg has mostly resolved. She will complete her Dex today. She denied any f/c. She has been having intermittent n/v. Fatigue is prominent. On 11/29/2021 she had a left subclavian Port-A-Cath placement for her metastatic breast cancer and being started on Ibrance. On 11/30/2021 she presented here to the emergency room with shortness of breath and was found to have a significant left-sided pneumothorax. Thora-Vent was placed in the emergency room 11/09/2021 she had zometa. Review of Systems All systems: negative Constitutional: Reports as per HPI Past Medical History Past Medical History: Cancer, Deep Vein Thrombosis (DVT), GERD/Reflux Additional Past Medical History / Comment(s): VERTIGO, HX OF DVT'S IN LEGS ( FR OM CONTROL PILLS), HX OF KIDNEY STONES, SLIDING HIATAL HERNIA, HEPATITIS A (1989), DIAGNOSED WITH BREAST CANCER 01/2015, HX OF POLYNEPHRITIS & UTIS MULTIPLE TIMES. History of Any Multi-Drug Resistant Organisms: None Reported Past Surgical History: Adenoidectomy, Appendectomy, Hysterectomy, Tonsillectomy Additional Past Surgical History / Comment(s): CATARACT RT EYE, KIDNEY SURG FOR STONES & TORN URETER. , OOPHORECTOMY Past Anesthesia/Blood Transfusion Reactions: Previous Problems w/ Anesthesia, Family History of Problems w/ Anesthesia, Motion Sickness Additional Past Anesthesia/Blood Transfusion Reaction / Comm: STATES "TERRIBLE " NAUSEA AND VOMITING. TRYS TO PULL OUT IV'S AND TUBES AND TRYS TO GET UP AND LEAVE. PTS MOTHER HAS SAME REACTION TO ANESTHESIA. Past Psychological History: No Psychological Hx Reported Additional Psychological History / Comment(s): CURRENT ANXIETY DUE TO CANCER AND SURGERY. Smoking Status: Never smoker Past Alcohol Use History: None Reported Past Drug Use History: None Reported - Past Family History Father Family Medical History: CVA/TIA, Hypertension Mother Family Medical History: Dementia Additional Family Medical History / Comment(s): 2020 of COVID and stroke Medications and Allergies Home Medications Medication Instructions Recorded Confirmed Type Esomeprazole Magnesium [NexIUM 20 mg PO DAILY 09/19/21 11/30/21 History 24Hr] Amitriptyline HCl [Elavil] 25 mg PO HS #20 tab 09/28/21 11/30/21 Rx Letrozole [Femara] 2.5 mg PO DAILY #30 tab 09/28/21 11/30/21 Rx ALPRAZolam [Xanax] 0.25 mg PO TID PRN 11/27/21 11/30/21 History Ascorbic Acid [Vitamin C] 500 mg PO DAILY 11/27/21 11/30/21 History Calcium Carbonate [Calcium] 600 mg PO DAILY 11/27/21 11/30/21 History Docusate [Colace] 100 mg PO DAILY 11/27/21 11/30/21 History Multivitamins, Thera [Multivitamin 2 tab PO DAILY 11/27/21 11/30/21 History (formulary)] Nystatin 100,000 Unit/ml Susp 500,000 unit PO QID PRN 11/27/21 11/30/21 History [Mycostatin Oral Susp] Ondansetron [Zofran] 4 mg PO Q6H PRN 11/27/21 11/30/21 History Triamcinolone Acetonide [Nasacort] 1 spray EA NOSTRIL DAILY PRN 11/27/21 11/30/21 History Vitamin B Complex 1 cap PO DAILY 11/27/21 11/30/21 History Zoledronic Acid [Zometa] 1 dose IVPB Q30D 11/27/21 11/30/21 History traMADol HCL 50 mg PO Q6H PRN 11/27/21 11/30/21 History Cholecalciferol (Vitamin D3) 250 mcg PO DAILY 11/30/21 11/30/21 History [Vitamin D3 (125 MCG = 5,000 IU)] Olopatadine HCl [Pataday] 1 drop BOTH EYES DAILY 11/30/21 11/30/21 History Palbociclib [Ibrance] 125 mg PO DIRECTED 11/30/21 11/30/21 History Zolpidem [Ambien] 5 mg PO HS PRN 11/30/21 11/30/21 History Allergies Allergy/AdvReac Type Severity Reaction Status Date / Time garlic Allergy Swelling Verified 11/30/21 09:24 Iodinated Contrast Media Allergy Swelling Verified 11/30/21 09:24 [Iodinated Contrast- Oral of face and IV Dye] and lips levofloxacin [From Levaquin] Allergy Swelling Verified 11/30/21 09:24 of face and lips amoxicillin trihydrate AdvReac Nausea & Verified 11/30/21 09:24 [From Augmentin] Vomiting gabapentin AdvReac "I felt Verified 11/30/21 09:24 like I was in a stupor and could not function at all hydrocodone AdvReac Hallucinati Verified 11/30/21 09:24 ons metoclopramide HCl AdvReac Hallucinati Verified 11/30/21 09:24 [From Reglan] ons potassium clavulanate AdvReac Nausea & Verified 11/30/21 09:24 [From Augmentin] Vomiting Physical Exam Vitals: Vital Signs Temp Pulse Pulse Resp BP BP Pulse Ox 12/01/21 13:00 98.3 F 79 15 104/61 98 12/01/21 02:00 98.0 F 75 18 116/69 98 11/30/21 22:55 107 H 22 196/101 97 11/30/21 20:00 98.3 F 75 18 148/76 96 11/30/21 19:11 98.3 F 86 18 151/84 98 11/30/21 14:46 98 F 88 16 133/76 98 Intake and Output 11/30/21 12/01/21 12/01/21 22:59 06:59 14:59 Intake Total 200 Balance 200 Intake: Oral 200 Other: # Voids 1 - Constitutional General appearance: cooperative, mild distress - EENT Eyes: EOMI ENT: NA/AT - Respiratory Respiratory: bilateral: diminished (CHest tube) - Cardiovascular Rhythm: regularly irregular - Gastrointestinal General gastrointestinal: soft - Integumentary Integumentary: pale - Musculoskeletal Musculoskeletal: generalized weakness - Psychiatric Psychiatric: A&O x's 3 Results CBC & Chem 7: 12/01/21 06:50 12/01/21 06:55 Labs: Abnormal Lab Results - Last 24 Hours (Table) 11/30/21 12/01/21 12/01/21 Range/Units 17:19 06:50 06:55 RBC 3.83 L (4.10-5.20) X 10*6/uL Hgb 10.4 L (12.0-15.0) g/dL Hct 35.5 L (37.2-46.3) % MCHC 29.3 L (32.0-37.0) g/dL Eosinophils # 0.02 L (0.04-0.35) X 10*3/uL D-Dimer 1.40 H (<0.60) mg/L FEU Anion Gap 8.20 L (10.00-18.00) mmol/L Creatinine 0.5 L (0.6-1.5) mg/dL BUN/Creatinine Ratio 20.80 H (12.00-20.00) Ratio Calcium 8.0 L (8.7-10.3) mg/dL Total Bilirubin <0.15 L (0.30-1.20) mg/dL Alkaline Phosphatase 157 H (41-126) U/L Total Protein 5.6 L (6.2-8.2) g/dL Albumin 3.3 L (3.8-4.9) g/dL Albumin/Globulin Ratio 1.43 L (1.60-3.17) g/dL Chest x-ray: report reviewed Assessment and Plan (1) Breast cancer metastasized to bone Narrative/Plan: Ibrance and Letrazole Check Ca15-3 and VItamin D Continue on treatment while hospitalized Current Visit: Yes Status: Acute Code(s): C50.919 - MALIGNANT NEOPLASM OF UNSP SITE OF UNSPECIFIED FEMALE BREAST; C79.51 - SECONDARY MALIGNANT NEOPLASM OF BONE SNOMED Code(s): 868142898 (2) Pneumothorax Narrative/Plan: pulm following Current Visit: Yes Status: Acute Code(s): J93.9 - PNEUMOTHORAX, UNSPECIFIED SNOMED Code(s): 44585192 (3) Normocytic anemia Narrative/Plan: work-up to maximize oxygenation Current Visit: Yes Status: Acute Code(s): D64.9 - ANEMIA, UNSPECIFIED SNOMED Code(s): 061314593 Plan: Continue on Letrazole and Ibrance COntinue with care from all other specialties related to acute hospitalization FOllow-up in office 1-2 weeks after discharge
[2021-12-02] MEDS: PALBOCICLIB 125 MG PO SCH (08:16)
[2021-12-02] MEDS: LETROZOLE 2.5 MG TAB PO SCH (08:21)
[2021-12-02] MEDS: KETOTIFEN 0.025% OPHTH DROPS 5 ML BTL BOTH EYES SCH (08:22)
[2021-12-02] MEDS: MULTIVITAMINS, THERA 1 EACH TAB PO SCH (08:22)
[2021-12-02] MEDS: CALCIUM CARBONATE 500 MG CHEWABLE PO SCH (08:22)
[2021-12-02] MEDS: SENNOSIDES-DOCUSATE SODIUM 1 EACH TAB PO SCH (08:22)
[2021-12-02] MEDS: DOCUSATE 100 MG CAP PO SCH (08:22)
[2021-12-02] MEDS: PANTOPRAZOLE 40 MG TABLET PO SCH (08:22)
[2021-12-02] MEDS: HEPARIN SODIUM,PORCINE/PF 5,000 UNIT/0.5 ML SYRINGE SQ SCH (08:22)
[2021-12-02] MEDS: CHOLECALCIFEROL 10 MCG (400 IU) TABLET PO SCH (08:22)
[2021-12-02] MEDS: ASCORBIC ACID 500 MG TAB PO SCH (08:22)
[2021-12-02] MEDS: ALPRAZolam 0.25 MG TAB PO PRN (08:31)
[2021-12-02 11:35] VITALS: BP 127/74; PULSE 80; RESP 18; TEMP 97.8
[2021-12-02 12:37] LABS: Basophils # (A) 0.03 X 10*3/uL (0.00-0.10); Basophils % (A) 0.7 %; Eosinophils # (A) 0.07 X 10*3/uL (0.04-0.35); Eosinophils % (A) 1.6 %; HCT 36.3 % (37.2-46.3); HGB 10.5 g/dL (12.0-15.0); Immature Grans, Automated 0.7 %; Lymphocytes # (A) 0.97 X 10*3/uL (0.90-5.00); Lymphocytes % (A) 22.4 %; MCH 27.1 pg (27.0-32.0); MCHC 28.9 g/dL (32.0-37.0); MCV 93.6 fL (80.0-97.0); Mean Platelet Volume 9.7 fL (9.5-12.2); Monocytes # (A) 0.44 X 10*3/uL (0.20-1.00); Monocytes % (A) 10.2 %; NRBC Per 100 WBC 0 /100 WBCS (0.0-0.0); Neutrophils # (A) 2.79 X 10*3/uL (1.80-7.70); Neutrophils % (A) 64.4 %; Platelet Count 214 X 10*3/uL (140-440); RBC 3.88 X 10*6/uL (4.10-5.20); RDW 14.1 % (11.5-14.5); WBC 4.33 X 10*3/uL (4.50-10.00)
[2021-12-02 13:06] LABS: ALT 12 U/L (8-44); AST 18 U/L (13-35); African American GFR (CKD) 117.3 (60.0-200.0); Albumin 3.1 g/dL (3.8-4.9); Albumin/Globulin Ratio 1.49 (1.60-3.17); Alkaline Phosphatase 164 U/L (41-126); BUN/Creat Ratio 22.57 Ratio (12.00-20.00); Blood Urea Nitrogen 11.4 mg/dL (9.0-27.0); Calcium 8.1 mg/dL (8.7-10.3); Carbon Dioxide 24.8 mmol/L (20.0-27.5); Chloride 105 mmol/L (96-109); Globulin 2.1 g/dL (1.6-3.3); Glucose 86 mg/dL (70-110); Magnesium 2.1 mg/dL (1.5-2.4); Non-African American GFR(CKD) 101.2 (60.0-200.0); Potassium 3.7 mmol/L (3.5-5.5); Sodium 142 mmol/L (135-145); Total Bilirubin <0.15 mg/dL (0.30-1.20); Total Protein 5.1 g/dL (6.2-8.2)
--- NOTE | 2021-12-02 19:30 | P.PN ---
Subjective Progress Note Date: 12/01/21 Principal diagnosis: Iatrogenic left-sided pneumothorax secondary to recent left-sided Mediport placement History of metastatic breast cancer Objective - Vital Signs Vital signs: Vital Signs Temp 98.3 F 12/01/21 13:00 Pulse 79 12/01/21 13:00 Resp 15 12/01/21 13:00 BP 104/61 12/01/21 13:00 Pulse Ox 98 12/01/21 13:00 FiO2 Intake & Output 11/30/21 12/01/21 12/01/21 18:59 06:59 18:59 Intake Total 200 Balance 200 Intake: Oral 200 Other: # Voids 1 - Exam GENERAL EXAM: Alert, 65-year-old female patient, on 2 L nasal cannula, comfortable in no apparent distress. EYES: Normal reaction of pupils, equal size. NECK: No masses, no JVD. CHEST: No chest wall deformity. Left sided Thora-Vent in place. Mediport in place. LUNGS: Equal air entry with no crackles, wheeze, rhonchi or dullness. CVS: S1 and S2 normal with no audible murmur, regular rhythm. ABDOMEN: No hepatosplenomegaly, normal bowel sounds, no guarding or rigidity. SPINE: No scoliosis or deformity SKIN: No rashes - Labs CBC & Chem 7: 12/02/21 05:48 12/02/21 05:48 Labs: Abnormal Lab Results - Last 24 Hours (Table) 11/30/21 12/01/21 12/01/21 Range/Units 17:19 06:50 06:55 RBC 3.83 L (4.10-5.20) X 10*6/uL Hgb 10.4 L (12.0-15.0) g/dL Hct 35.5 L (37.2-46.3) % MCHC 29.3 L (32.0-37.0) g/dL Eosinophils # 0.02 L (0.04-0.35) X 10*3/uL D-Dimer 1.40 H (<0.60) mg/L FEU Anion Gap 8.20 L (10.00-18.00) mmol/L Creatinine 0.5 L (0.6-1.5) mg/dL BUN/Creatinine Ratio 20.80 H (12.00-20.00) Ratio Calcium 8.0 L (8.7-10.3) mg/dL Total Bilirubin <0.15 L (0.30-1.20) mg/dL Alkaline Phosphatase 157 H (41-126) U/L Total Protein 5.6 L (6.2-8.2) g/dL Albumin 3.3 L (3.8-4.9) g/dL Albumin/Globulin Ratio 1.43 L (1.60-3.17) g/dL Assessment and Plan Assessment: 1 Iatrogenic left-sided pneumothorax secondary to recent left-sided Mediport placement 2 History of metastatic breast cancer 3 History of DVT 4 History of esophageal reflux disease History of vertigo Plan: The patient was seen and evaluated We will discontinue wall suction Follow-up chest x-ray in 1 hour Titrate the FiO2 as tolerated
--- NOTE | 2021-12-02 19:34 | P.DS ---
Providers Date of admission: 11/30/21 11:32 Expected date of discharge: 12/02/21 Attending physician: Burt Ya MD Consults: 11/30/21 11:32 Consult Physician Urgent Consulting Provider: Natalio lAlen Consult Reason/Comments: left sided pneumothorax s/p chest tube Do you want consulting provider notified?: Yes 11/30/21 16:50 Consult Physician Routine Consulting Provider: Lencho Herbert Consult Reason/Comments: fall hip pain, recent surgery Do you want consulting provider notified?: Yes Consult Physician Routine Consulting Provider: Ruddy Chen Consult Reason/Comments: malignancy Do you want consulting provider notified?: Yes Primary care physician: [facility] Course: 65-year-old female patient who has a known history of metastatic breast cancer diagnosed in 2014, currently on oral chemotherapy, DVT of the lower extremities, recent left pathological femur fracture status post IM nail placement in September 2021. On 11/29/2021 she had a left subclavian Port-A-Cath placement for her metastatic breast cancer and being started on Ibrance. On 11/30/2021 she presented here to the emergency room with shortness of breath and was found to have a significant left-sided pneumothorax. Thora-Vent was placed in the emergency room. She is seen today in consultation on the regular medical floor. She is currently resting comfortably in bed. Awake and alert in no acute distress. Left-sided chest tube to wall suction. She is maintaining good O2 saturations in the upper 90s on 2 L/m per nasal cannula. She's been afebrile. Hemodynamically stable. White count 6.0. Hemoglobin 10.4. Platelets 230. Sodium 141. Potassium 3.8. BUN 10. Creatinine 0.5. She is on heparin for DVT prophylaxis. 1 Iatrogenic left-sided pneumothorax secondary to recent left-sided Mediport placement 2 History of metastatic breast cancer 3 History of DVT 4 History of esophageal reflux disease History of vertigo Plan: The patient was seen and evaluated We will discontinue wall suction Follow-up chest x-ray in 1 hour Titrate the FiO2 as tolerated Patient underwent chest tube placement which helped resolution of pneumothorax; patient was evaluated by pulmonary service and was suction was discontinued and x-ray was repeated and an hour; no recurrence of pneumothorax; patient was cleared for discharge by pulmonary service Patient Condition at Discharge: Serious Plan - Discharge Summary New Discharge Prescriptions: Continue Zoledronic Acid [Zometa] 1 dose IVPB Q30D Multivitamins, Thera [Multivitamin (formulary)] 2 tab PO DAILY ALPRAZolam [Xanax] 0.25 mg PO TID PRN PRN Reason: Anxiety Ondansetron [Zofran] 4 mg PO Q6H PRN PRN Reason: Nausea And Vomiting traMADol HCL 50 mg PO Q6H PRN PRN Reason: Severe Pain Palbociclib [Ibrance] 125 mg PO DIRECTED Zolpidem [Ambien] 5 mg PO HS PRN PRN Reason: Insomnia Esomeprazole Magnesium [NexIUM 24Hr] 20 mg PO DAILY Amitriptyline HCl [Elavil] 25 mg PO HS #20 tab Letrozole [Femara] 2.5 mg PO DAILY #30 tab Nystatin 100,000 Unit/ml Susp [Mycostatin Oral Susp] 500,000 unit PO QID PRN PRN Reason: Mouth Sores Ascorbic Acid [Vitamin C] 500 mg PO DAILY Docusate [Colace] 100 mg PO DAILY Vitamin B Complex 1 cap PO DAILY Triamcinolone Acetonide [Nasacort] 1 spray EA NOSTRIL DAILY PRN PRN Reason: Allergic Reaction Calcium Carbonate [Calcium] 600 mg PO DAILY Cholecalciferol (Vitamin D3) [Vitamin D3 (125 MCG = 5,000 IU)] 250 mcg PO DAILY Olopatadine HCl [Pataday] 1 drop BOTH EYES DAILY Discharge Medication List Esomeprazole Magnesium [NexIUM 24Hr] 20 mg PO DAILY 09/19/21 [History] Amitriptyline HCl [Elavil] 25 mg PO HS #20 tab 09/28/21 [Rx] Letrozole [Femara] 2.5 mg PO DAILY #30 tab 09/28/21 [Rx] ALPRAZolam [Xanax] 0.25 mg PO TID PRN 11/27/21 [History] Ascorbic Acid [Vitamin C] 500 mg PO DAILY 11/27/21 [History] Calcium Carbonate [Calcium] 600 mg PO DAILY 11/27/21 [History] Docusate [Colace] 100 mg PO DAILY 11/27/21 [History] Multivitamins, Thera [Multivitamin (formulary)] 2 tab PO DAILY 11/27/21 [History] Nystatin 100,000 Unit/ml Susp [Mycostatin Oral Susp] 500,000 unit PO QID PRN 11/27/21 [History] Ondansetron [Zofran] 4 mg PO Q6H PRN 11/27/21 [History] Triamcinolone Acetonide [Nasacort] 1 spray EA NOSTRIL DAILY PRN 11/27/21 [History] Vitamin B Complex 1 cap PO DAILY 11/27/21 [History] Zoledronic Acid [Zometa] 1 dose IVPB Q30D 11/27/21 [History] traMADol HCL 50 mg PO Q6H PRN 11/27/21 [History] Cholecalciferol (Vitamin D3) [Vitamin D3 (125 MCG = 5,000 IU)] 250 mcg PO DAILY 11/30/21 [History] Olopatadine HCl [Pataday] 1 drop BOTH EYES DAILY 11/30/21 [History] Palbociclib [Ibrance] 125 mg PO DIRECTED 11/30/21 [History] Zolpidem [Ambien] 5 mg PO HS PRN 11/30/21 [History] Follow up Appointment(s)/Referral(s): Armando Oates MD [Primary Care Provider] - 1-2 days Discharge Disposition: HOME SELF-CARE
== END 2021-12-02 19:55 | disposition home or self-care (01) | DRG 200 ==
LOC: EC 05:09 → 5NMEDONC 11:32
PROVIDERS: ADMIT Internal Medicine; ATTEND Internal Medicine
PROC: 0W9B30Z Drainage of Left Pleural Cavity with Drainage Device, Percutaneous Approach (ICD-10-PCS; principal; 2021-11-30)
DX: J95.811 Postprocedural pneumothorax (principal); C79.51 Secondary malignant neoplasm of bone; M84.452A Pathological fracture, left femur, initial encounter for fracture; C50.312 Malignant neoplasm of lower-inner quadrant of left female breast; Y83.8 Other surgical procedures as the cause of abnormal reaction of the patient, or of later complication, without mention of misadventure at the time of the procedure; D64.9 Anemia, unspecified; K21.9 Gastro-esophageal reflux disease without esophagitis; R42 Dizziness and giddiness; W18.09XA Striking against other object with subsequent fall, initial encounter; Y71.2 Prosthetic and other implants, materials and accessory cardiovascular devices associated with adverse incidents; Z86.718 Personal history of other venous thrombosis and embolism; Z79.811 Long term (current) use of aromatase inhibitors; Z92.3 Personal history of irradiation; Z90.710 Acquired absence of both cervix and uterus; Z87.442 Personal history of urinary calculi; Z88.5 Allergy status to narcotic agent; Z88.8 Allergy status to other drugs, medicaments and biological substances; Z88.1 Allergy status to other antibiotic agents; Z91.041 Radiographic dye allergy status; Z82.49 Family history of ischemic heart disease and other diseases of the circulatory system; Z82.3 Family history of stroke
CPT/HCPCS: 32551; 36415; 71045; 71275; 73502; 80053; 82306; 82607; 82728; 82746; 83540; 83550; 83735; 83880; 84484; 85025; 85379; 85610; 85730; 86300; 93005; 96361; 96374; 96375; 96376; 99285

== ENCOUNTER → 2022-05-18 | Outpatient (CLI) | payer OTHER ==
[2022-05-18 12:39] LABS: African American GFR (CKD) >90 (>60 ml/min/1.73 sqM); Blood Urea Nitrogen 12 mg/dL (7-17); Non-African American GFR(CKD) >90 (>60 ml/min/1.73 sqM)
--- NOTE | 2022-05-18 13:34 | CT ---
EXAMINATION TYPE: CT ChestAbdPelvis w con CT DLP: 598.9 mGycm, Automated exposure control for dose reduction was used. DATE OF EXAM: 05/18/2022 1:15 PM COMPARISON: CT chest abdomen pelvis 09/20/2021, CTA chest 11/30/2021. CLINICAL INDICATION:Female, 66 years old with history of C50.312 BREAST CANCER; [facility], follow up to [facility] Technique: Multiple axial images of the chest, abdomen, and pelvis were obtained following the intrav enous administration of 100 mL Isovue-300. Oral contrast was administered. Two-dimensional coronal an d sagittal reconstructions were obtained. Findings: CHEST: LUNGS/ PLEURA: No pneumothorax. Trace right pleural effusion. Interval decrease in patchy groundglass and consolidative changes within the posterior right upper lobe. Stable right infrahilar mass measur ing up to 2.4 cm. Similar collapse of the right lower lobe with cut off of the bronchus and internal debris/fluid within the bronchi. Decrease right midlung nodule measuring 4 mm, previously 7 mm. Stabl e 2 mm nodule in the right lung apex. No new or enlarging pulmonary nodules. AIRWAY: Similar abrupt cut off of the right bronchus intermedius. HEART: Size within normal limits. No pericardial effusion. MEDIASTINUM: Stable large subcarinal lymph node measuring up to 1.7 cm short axis. Additional stable enlarged right paratracheal superior mediastinal lymph node measuring 0.8 cm short axis. VASCULATURE: No aortic aneurysm. Chest wall Mediport catheter with tip terminating at the low superi or vena cava. MUSCULOSKELETAL: No acute osseous abnormalities. Extensive sclerotic osseous lesions throughout the v isualized osseous structures. Overall similar to prior exam. SOFT TISSUES/LYMPH NODES: Stable left axillary metastatic lymph nodes with largest measuring 2.7 x 2. 0 cm (series 3, image 21). Previous bilateral mastectomy. LOWER NECK: No significant findings. ABDOMEN: ABDOMEN LIVER: Stable subcentimeter appetite focus within the left hepatic lobe which is too small to charact erize. GALLBLADDER AND BILE DUCTS: Contracted gallbladder. No biliary ductal dilatation. PANCREAS: Unremarkable. SPLEEN: Unremarkable. Stable accessory splenules. ADRENAL GLANDS: Unremarkable. KIDNEYS AND URETERS: No evidence of hydronephrosis or renal calculus. The kidneys enhance symmetrical ly. Right renal sinus cyst measuring up to 2 cm. PELVIS BLADDER: Incompletely distended but grossly unremarkable. REPRODUCTIVE: There are no suspicious adnexal mass. ABDOMEN & PELVIS STOMACH AND BOWEL: Stomach and duodenum are unremarkable. No focal wall thickening. No evidence of tarun wel obstruction. PERITONEUM: No evidence of pneumoperitoneum or free fluid. VASCULATURE: Moderate atherosclerotic calcifications are present throughout the abdominal aorta and i ts branches. No abdominal aortic aneurysm. MUSCULOSKELETAL: No acute osseous abnormalities. Extensive sclerotic osseous lesions throughout the v isualized osseous structures. Overall similar to prior exam. Postsurgical changes of the left hip fro m intramedullary yamila and fixation screw. LYMPH NODES: No gross evidence for lymphadenopathy. SOFT TISSUE/ABDOMINAL WALL: Unremarkable IMPRESSION: 1. Stable left axillary and mediastinal lymphadenopathy as well as right hilar mass with again colla pse of the right lower lobe. Decreased size of right lower lung pulmonary nodule measuring 4 mm, prev iously 7 mm. No new or enlarging pulmonary nodules. 2. Trace right pleural effusion with decreased posterior right upper lobe consolidation and groundgl ass opacities. 3. Relatively stable extensive osseous metastatic. Nuclear medicine bone scan would be more sensitiv e for interval change.
== END | disposition home or self-care (01) ==
LOC: RADPROMAIN 11:30
PROVIDERS: ATTEND Internal Medicine Hematology & Oncology
DX: C50.312 Malignant neoplasm of lower-inner quadrant of left female breast (principal); C79.51 Secondary malignant neoplasm of bone; J90 Pleural effusion, not elsewhere classified; R91.8 Other nonspecific abnormal finding of lung field; R59.0 Localized enlarged lymph nodes; Z85.3 Personal history of malignant neoplasm of breast
CPT/HCPCS: 82565; 84520; 71260; 74177; J1642; Q9967

== ENCOUNTER → 2022-06-05 | Outpatient (CLI) | payer OTHER ==
--- NOTE | 2022-06-05 15:05 | NM ---
EXAMINATION TYPE: NM bone scan whole body DATE OF EXAM: 06/05/2022 COMPARISON: Nuclear bone scan 09/20/2021 HISTORY: Breast cancer Delayed whole-body scanning was performed following the injection of 23.3 mCi Tc 99m MDP. Images acq uired 3 hours post injection. FINDINGS: Extensive multiple focal areas of radiotracer uptake are present throughout the axial and appendicula r skeletal compatible with metastatic disease. Overall appearances appear similar to prior examinatio n. These areas include the mid right humeral diaphysis, punctate foci within the left humeral diaphys is, scattered multiple areas of uptake within the bilateral ribs, thoracic and lumbar spine, sternum, calvarium, bilateral hips and sacrum and acetabular region of the right hip. IMPRESSION: Overall similar appearance of extensive uptake within the axial and appendicular skeleton consistent with metastatic disease when compared to prior scan on 09/20/2021.
== END | disposition home or self-care (01) ==
LOC: RADNMMAIN 09:49
PROVIDERS: ATTEND Internal Medicine Hematology & Oncology
DX: C50.312 Malignant neoplasm of lower-inner quadrant of left female breast (principal)
CPT/HCPCS: 78306; A9503; J1642

== ENCOUNTER → 2022-10-01 | Outpatient (CLI) | payer OTHER | END | disposition home or self-care (01) | LOC: RADMRIMAIN 13:45 | PROVIDERS: ATTEND Orthopaedic Surgery | DX: Z53.9 Procedure and treatment not carried out, unspecified reason (principal) ==

== ENCOUNTER → 2022-10-01 | Outpatient (CLI) | payer OTHER ==
--- NOTE | 2022-10-01 18:36 | MR ---
EXAMINATION TYPE: MR thoracic spine wo/w con DATE OF EXAM: 10/01/2022 COMPARISON: Whole body bone scan June 05, 2022. Whole body CT May 18, 2022. HISTORY: Mid back pain, bone cancer. TECHNIQUE: Multiplanar, multisequence imaging of thoracic spine is performed without and with IV cont rast, patient injected with 6.5 cc of gadolinium. FINDINGS: Spinal cord shows normal course, caliber, and signal as it courses the thoracic spine. Exag gerated thoracic kyphosis is seen. There are multiple ossific metastatic lesions identified correlati ng with recent bone scan. There is diffuse diminished T1 and T2 signal in the C6 vertebra. There is d iffuse diminished signal with enhancement involving the T3-T5 vertebra and the T10 vertebra along wit h the L2 vertebra. There are smaller areas of involvement in the remainder of the vertebra of the tho racic spine along with the lower cervical and upper lumbar spine. Vertebral body heights are fairly w ell preserved. No large posterior disc herniations are seen. Review of the axial images shows no significant spinal canal stenosis or neural foraminal narrowing a t any thoracic level. There is posterior medial chronic consolidation axial image 15 series 1201 red emonstrated. There is 1.4 cm simple appearing thin-walled cyst in the right kidney axial image 1 seri es 801 redemonstrated. Trace right pleural effusion again seen. Abnormal left breast mass coronal benedict ge 6 measuring 2.5 cm long axis corresponds to CT axial image 21. Abnormal left axillary lymph nodes coronal image [address] IMPRESSION: Diffuse ossific metastatic disease redemonstrated as detailed above.
--- NOTE | 2022-10-02 13:03 | MR ---
EXAMINATION TYPE: MR pelvis wo con DATE OF EXAM: 10/01/2022 COMPARISON: Whole body bone scan May 26, 2022 HISTORY: History of metastatic breast cancer to bone, left leg. Standard multiplanar, multisequence MRI departmental protocol Multiplanar, multisequence images of the pelvis was acquired without contrast. Diffusion weighted benedict ging was performed. FINDINGS: There is susceptibility artifact from surgical change to the femur making evaluation of thi s level suboptimal. In the region of the makah left greater trochanter there is abnormal bone marrow signal present which correlates to area of increased radiotracer uptake on recent bone scan consiste nt with metastatic lesion. There is likely also involvement in the region of the lesser trochanter. F emoral head shape is maintained. Linear T1 signal superiorly coronal image 15 is suspicious for avasc ular necrosis. No bony fragmentation. Moderate axial joint space loss in both hips is seen. There are lesions of diminished T1 and increased T2 signal throughout the pelvis including large lobu lated lesion intertrochanteric region of the right proximal femur. There are multiple bilateral iliac bone lesions and multiple lesions throughout the bilateral sacrum. One of largest lesions is in the right sacrum abutting the sacroiliac joint. There are lesions in the bilateral pelvic rami with large st lesion seen in the right superior pelvic ramus. Extension to the anterior acetabulum is noted on t he right. There are multiple lesions in the visualized lumbar spine. No suspicious bowel dilatation. No concerning pelvic fluid collection. Uterus is surgically absent. N o groin hernia or adenopathy is present. IMPRESSION: Diffuse osseous metastatic disease is confirmed. Artifact from surgical change left femur is noted. 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 No bony fragmentation is see n.
== END | disposition home or self-care (01) ==
LOC: RADMRIMAIN 13:13
PROVIDERS: ATTEND Internal Medicine Hematology & Oncology
DX: S72.002D Fracture of unspecified part of neck of left femur, subsequent encounter for closed fracture with routine healing (principal); C79.51 Secondary malignant neoplasm of bone; Z85.9 Personal history of malignant neoplasm, unspecified; Z48.89 Encounter for other specified surgical aftercare
CPT/HCPCS: 72157; 72195; J1642; A9585

== ENCOUNTER → 2022-10-26 | Outpatient (CLI) | payer OTHER ==
--- NOTE | 2022-10-26 12:27 | XR ---
EXAMINATION TYPE: XR Hip Complete LT DATE OF EXAM: 10/26/2022 COMPARISON: Correlation MRI 10/01/2022 HISTORY: 66-year-old female C7 9.51, malignant neoplasm of bone, hip pain for one month TECHNIQUE: 2 views FINDINGS: Previous antegrade intramedullary nail and screw fixation left femur. Patchy sclerosis seen throughout the pelvis in keeping with patient's history of osseous metastases. No periprosthetic fracture is seen. End of sclerosis along the superior weight-bearing aspect of the left femoral head. No subarticular c ollapse. IMPRESSION: 1. Previous nailing and screw fixation proximal left femur. 2. Band of sclerosis along the superior weight-bearing aspect of the femoral head in keeping with the femoral head AVN seen on 10/01/2022. There has been no progression to subarticular collapse. 3. Diffuse sclerotic osseous metastatic disease.
== END | disposition home or self-care (01) ==
LOC: RADXRMAIN 11:48
PROVIDERS: ATTEND Radiology Radiation Oncology
DX: C79.51 Secondary malignant neoplasm of bone (principal); C80.1 Malignant (primary) neoplasm, unspecified
CPT/HCPCS: 73502

== ENCOUNTER → 2023-03-27 | Outpatient (CLI) | payer OTHER ==
--- NOTE | 2023-03-27 16:47 | US ---
EXAMINATION TYPE: US venous doppler duplex LE LT DATE OF EXAM: 03/27/2023 4:24 PM COMPARISON: 02/22/2023 CLINICAL INDICATION: Female, 67 years old with history of R22.42 LOCALIZED SWELLING MASS LUMP; swelli ng in left leg SIDE PERFORMED: Left TECHNIQUE: The lower extremity deep venous system is examined utilizing real time linear array sonog yonatan with graded compression, doppler sonography and color-flow sonography. VESSELS IMAGED: Common Femoral Vein Deep Femoral Vein Greater Saphenous Vein * Femoral Vein Popliteal Vein Small Saphenous Vein * Proximal Calf Veins (* superficial vessels) Left Leg: Negative for DVT called office at 4:30 IMPRESSION: Grayscale, color doppler, spectral doppler imaging performed of the deep veins of the lo wer extremities. There is normal flow, compressibility, vascular waveforms.
== END | disposition home or self-care (01) ==
LOC: RADUSWWP 16:05
PROVIDERS: ATTEND Internal Medicine Hematology & Oncology
DX: R22.42 Localized swelling, mass and lump, left lower limb (principal)

== ENCOUNTER 2023-04-06 20:54 | Inpatient (IN) | payer OTHER ==
[2023-04-06] MEDS ORDERED: HYDROmorphone 1 MG/ML 1 ML SYRINGE IVP STA ×2 (21:18→22:08)
[2023-04-06] MEDS ORDERED: SODIUM CHLORIDE 0.9% 500 ML 500 ML IV STA (21:29)
--- NOTE | 2023-04-06 21:33 | ED ---
Abdominal Pain HPI - General Chief Complaint: Abdominal Pain Stated Complaint: Abdominal pain Time Seen by Provider: 04/06/23 21:05 Source: patient, EMS Mode of arrival: EMS - History of Present Illness MD Complaint: abdominal pain Onset/Timin -: hour(s) Location: RLQ Migration to: no migration Severity: severe Quality: cramping, sharp Consistency: colicky Improves With: nothing Worsens With: nothing Associated Symptoms: denies other symptoms - Related Data Home Medications Medication Instructions Recorded Confirmed ALPRAZolam [Xanax] 0.25 mg PO BID PRN 11/27/21 04/07/23 Nystatin 100,000 Unit/ml Susp 5 ml PO QID PRN 11/27/21 04/07/23 [Mycostatin Oral Susp] Zoledronic Acid [Zometa] 1 dose IVPB Q30D 11/27/21 04/07/23 Zolpidem [Ambien] 5 mg PO HS 11/30/21 04/07/23 ALPRAZolam [Xanax] 0.25 mg PO DAILY 04/07/23 04/07/23 Amitriptyline HCl [Elavil] 20 mg PO HS@2100 04/07/23 04/07/23 Budesonide [Entocort EC] 3 mg PO PC-BID 04/07/23 04/07/23 Calcium Carbonate [Tums] 500 mg PO HS@2100 04/07/23 04/07/23 Collagen Gummy (Unknown Strength) 1 cap PO DAILY 04/07/23 04/07/23 Diphenoxylate HCl/Atropine 1 tab PO TID PRN 04/07/23 04/07/23 [Lomotil 2.5-0.025 mg Tablet] Fulvestrant 1 dose IV Q30D 04/07/23 04/07/23 Ibuprofen/Acetaminophen [Advil 1 tab PO BID PRN 04/07/23 04/07/23 Dual Action 125MG(IBU)-250MG(ACET)] Loperamide [Imodium] 2 mg PO QID PRN 04/07/23 04/07/23 Multivitamin [Multivitamins Adult 1 tab PO DAILY 04/07/23 04/07/23 Gummies] Promethazine Suppository 12.5 mg RECTAL Q6H PRN 04/07/23 04/07/23 [Phenergan] Promethazine [Phenergan] 25 mg PO Q6HR PRN 04/07/23 04/07/23 Vitamin B Complex Gummy 1 cap PO DAILY 04/07/23 04/07/23 Vitamin C 1,000mg Gummy 2,000 mg PO DAILY 04/07/23 04/07/23 Vitamin D3 50mcg Gummies 100 mcg PO DAILY 04/07/23 04/07/23 Previous Rx's Medication Instructions Recorded oxyCODONE HCL [OxyIR] 10 mg PO Q4HR PRN #14 tab 04/11/23 traMADol HCl [Ultram] 100 mg PO TID PRN #10 tab 04/11/23 Allergies Allergy/AdvReac Type Severity Reaction Status Date / Time garlic Allergy Swelling Verified 04/07/23 11:36 Iodinated Contrast Media Allergy Swelling Verified 04/07/23 11:36 [Iodinated Contrast- Oral of face and IV Dye] and lips levofloxacin [From Levaquin] Allergy Swelling Verified 04/07/23 11:36 of face and lips amoxicillin trihydrate AdvReac Nausea & Verified 04/07/23 11:36 [From Augmentin] Vomiting gabapentin AdvReac "I felt Verified 04/07/23 11:36 like I was in a stupor and could not function at all hydrocodone AdvReac Hallucinati Verified 04/07/23 11:36 ons metoclopramide HCl AdvReac Hallucinati Verified 04/07/23 11:36 [From Reglan] ons potassium clavulanate AdvReac Nausea & Verified 04/07/23 11:36 [From Augmentin] Vomiting Review of Systems ROS Statement: Those systems with pertinent positive or pertinent negative responses have been documented in the HPI. ROS Other: All systems not noted in ROS Statement are negative. Constitutional: Denies: fever, chills, weakness Respiratory: Denies: cough, dyspnea Cardiovascular: Denies: chest pain, palpitations, edema, syncope Gastrointestinal: Reports: abdominal pain. Denies: nausea, vomiting, diarrhea, constipation, melena, hematochezia Genitourinary: Denies: dysuria, hematuria Musculoskeletal: Denies: back pain Skin: Denies: rash Neurological: Denies: headache, weakness, numbness Past Medical History Past Medical History: Cancer, Deep Vein Thrombosis (DVT), GERD/Reflux Additional Past Medical History / Comment(s): VERTIGO, HX OF DVT'S IN LEGS ( FROM CONTROL PILLS), HX OF KIDNEY STONES, SLIDING HIATAL HERNIA, HEPATITIS A (1989), DIAGNOSED WITH BREAST CANCER 01/2015, HX OF POLYNEPHRITIS & UTIS MULTIPLE TIMES. History of Any Multi-Drug Resistant Organisms: None Reported Past Surgical History: Adenoidectomy, Appendectomy, Hysterectomy, Tonsillectomy Additional Past Surgical History / Comment(s): CATARACT RT EYE, KIDNEY SURG FOR STONES & TORN URETER. , OOPHORECTOMY Past Anesthesia/Blood Transfusion Reactions: Previous Problems w/ Anesthesia, Family History of Problems w/ Anesthesia, Motion Sickness Additional Past Anesthesia/Blood Transfusion Reaction / Comment(s): STATES "TERRIBLE " NAUSEA AND VOMITING. TRYS TO PULL OUT IV'S AND TUBES AND TRYS TO GET UP AND LEAVE. PTS MOTHER HAS SAME REACTION TO ANESTHESIA. Past Psychological History: No Psychological Hx Reported Past Alcohol Use History: None Reported Past Drug Use History: None Reported - Past Family History Father Family Medical History: CVA/TIA, Hypertension Mother Family Medical History: No Reported History Additional Family Medical History / Comment(s): 2019 of COVID and stroke General Exam General appearance: alert, in distress Head exam: Present: atraumatic, normocephalic Eye exam: Present: normal appearance. Absent: scleral icterus, conjunctival injection ENT exam: Present: normal oropharynx Neck exam: Present: normal inspection, full ROM Respiratory exam: Present: normal lung sounds bilaterally. Absent: respiratory distress, wheezes, rales, rhonchi, stridor Cardiovascular Exam: Present: regular rate, normal rhythm, normal heart sounds. Absent: systolic murmur, diastolic murmur, rubs, gallop GI/Abdominal exam: Present: soft, tenderness (Right lower quadrant, mild tenderness no rebound or guarding). Absent: distended, guarding, rebound, rigid, mass, pulsatile mass, hernia Extremities exam: Present: normal inspection, normal capillary refill. Absent: pedal edema, calf tenderness Back exam: Present: normal inspection. Absent: CVA tenderness (R), CVA tenderness (L) Neurological exam: Present: alert Skin exam: Present: warm, dry, intact, normal color. Absent: rash Course Vital Signs 04/06/23 04/07/23 04/07/23 21:07 03:00 03:30 Temperature 98.2 F Pulse Rate 94 96 87 Pulse Rate [ Pulse Oximetery ] Respiratory 17 16 18 Rate Blood Pressure 184/85 128/73 171/71 Blood Pressure [Right Arm] O2 Sat by Pulse 99 98 98 Oximetry 04/07/23 04/07/23 04/07/23 04:30 06:25 07:00 Temperature 98.9 F Pulse Rate 90 96 Pulse Rate [ 87 Pulse Oximetery ] Respiratory 14 17 17 Rate Blood Pressure 133/79 142/66 Blood Pressure 140/70 [Right Arm] O2 Sat by Pulse 95 95 100 Oximetry Medical Decision Making - Medical Decision Making The patient had CT of the abdomen and pelvis which I interpreted to show ileus versus early bowel obstruction. Was pt. sent in by a medical professional or institution (, PA, COMPRESSED YEAST SUPERVISOR, urgent care, hospital, or skilled nursing...) When possible be specific @ -[No] Did you speak to anyone other than the patient for history (EMS, parent, family, police, friend...)? What history was obtained from this source @ -[Family did contribute to history Did you review nursing and triage notes (agree or disagree)? Why? @ -[I reviewed and agree with nursing and triage notes] Were old charts reviewed (outside hosp., previous admission, EMS record, old EK G, old radiological studies, urgent care reports/EKG's, skilled nursing records)? Report findings @ -[No old charts were reviewed] Differential Diagnosis (chest pain, altered mental status, abdominal pain women, abdominal pain men, vaginal bleeding, weakness, fever, dyspnea, syncope, headache, dizziness, GI bleed, back pain, seizure, CVA, palpatations, mental he alth, musculoskeletal)? @ -[Differential Abdominal Pain Women: Appendicitis, Cholecystitis, diverticulosis, ischemic bowel, pancreatitis, hepatitis, UTI, gastroenteritis, AAA, incarcerated hernia, bowel obstruction, constipation, inflammatory bowel, hepatitis, peptic ulcer disease, splenic infarction, perforated viscus, vulvitis, ovarian torsion, PID, kidney stone, placenta abruption, this is not meant to be an all-inclusive list EKG interpreted by me (3pts min.). @ -[As above] X-rays interpreted by me (1pt min.). @ -[None done] CT interpreted by me (1pt min.). @ -[I interpreted as above U/S interpreted by me (1pt. min.). @ -[None done] What testing was considered but not performed or refused? (CT, X-rays, U/S, labs)? Why? @ -[None] What meds were considered but not given or refused? Why? @ -[None] Did you discuss the management of the patient with other professionals (professionals i.e. , PA, COMPRESSED YEAST SUPERVISOR, lab, RT, psych nurse, social service director, instrument maker and repairer, teacher, chief credit officer, case managers)? Give summary @ -[Case discussed with admitting physician Was smoking cessation discussed for >3mins.? @ -[No] Was critical care preformed (if so, how long)? @ -[No] Were there social determinants of health that impacted care today? How? (Homelessness, low income, unemployed, alcoholism, drug addiction, transportation, low edu. Level, literacy, decrease access to med. care, intermediate, rehab)? @ -[No] Was there de-escalation of care discussed even if they declined (Discuss DNR or withdrawal of care, Hospice)? DNR status @ -[No] What co-morbidities impacted this encounter? (DM, HTN, Smoking, COPD, CAD, Cancer, CVA, ARF, Chemo, Hep., AIDS, mental health diagnosis, sleep apnea, morbid obesity)? @ -[Underlying metastatic cancer Was patient admitted / discharged? Hospital course, mention meds given and rout e, prescriptions, significant lab abnormalities, going to OR and other pertinent info. @ -[Patient is 67-year-old woman who presents with abdominal pain and continues to have episodes of severe pain. The patient CT suggestive of colonic ileus versus early obstruction. Patient admitted to have further symptom control and surgical consultation. Undiagnosed new problem with uncertain prognosis? @ -[No] Drug Therapy requiring intensive monitoring for toxicity (Heparin, Nitro, Insulin, Cardizem)? @ -[No] Were any procedures done? @ -[No] Diagnosis/symptom? @ -[Acute right side abdominal pain Ileus versus early bowel obstruction Acute, or Chronic, or Acute on Chronic? @ -[Acute Uncomplicated (without systemic symptoms) or Complicated (systemic symptoms)? @ -[Uncomplicated Side effects of treatment? @ -[No] Exacerbation, Progression, or Severe Exacerbation? @ -[No] Poses a threat to life or bodily function? How? (Chest pain, USA, ID, pneumonia, PE, COPD, DKA, ARF, appy, cholecystitis, CVA, Diverticulitis, Homicidal, Suicidal, threat to staff... and all critical care pts) @ -[No] - Lab Data Result diagrams: 04/10/23 06:05 04/10/23 06:05 Lab Results 04/06/23 04/06/23 04/06/23 Range/Units 22:02 22:02 22:02 WBC 5.7 (3.8-10.6) k/uL RBC 4.78 (3.80-5.40) m/uL Hgb 13.3 (11.4-16.0) gm/dL Hct 41.6 (34.0-46.0) % MCV 86.9 (80.0-100.0) fL MCH 27.9 (25.0-35.0) pg MCHC 32.1 (31.0-37.0) g/dL RDW 14.5 (11.5-15.5) % Plt Count 198 (150-450) k/uL MPV 7.5 Neutrophils % 71 % Lymphocytes % 19 % Monocytes % 6 % Eosinophils % 2 % Basophils % 0 % Neutrophils # 4.0 (1.3-7.7) k/uL Lymphocytes # 1.1 (1.0-4.8) k/uL Monocytes # 0.3 (0-1.0) k/uL Eosinophils # 0.1 (0-0.7) k/uL Basophils # 0.0 (0-0.2) k/uL Sodium 141 (137-145) mmol/L Potassium 3.5 (3.5-5.1) mmol/L Chloride 108 H (98-107) mmol/L Carbon Dioxide 22 (22-30) mmol/L Anion Gap 11 mmol/L BUN 11 (7-17) mg/dL Creatinine 0.67 (0.52-1.04) mg/dL Est GFR (CKD-EPI)AfAm >90 (>60 ml/min/1.73 sqM) Est GFR (CKD-EPI)NonAf >90 (>60 ml/min/1.73 sqM) Glucose 127 H (74-99) mg/dL Lactic Ac Sepsis Rflx Plasma Lactic Acid Waylon 4.3 H* (0.7-2.0) mmol/L Calcium 9.8 (8.4-10.2) mg/dL Total Bilirubin 0.6 (0.2-1.3) mg/dL AST 31 (14-36) U/L ALT 21 (4-34) U/L Alkaline Phosphatase 72 (38-126) U/L Total Protein 7.3 (6.3-8.2) g/dL Albumin 4.4 (3.5-5.0) g/dL Amylase 48 (30-110) U/L Lipase 127 (23-300) U/L 04/06/23 Range/Units 23:16 WBC (3.8-10.6) k/uL RBC (3.80-5.40) m/uL Hgb (11.4-16.0) gm/dL Hct (34.0-46.0) % MCV (80.0-100.0) fL MCH (25.0-35.0) pg MCHC (31.0-37.0) g/dL RDW (11.5-15.5) % Plt Count (150-450) k/uL MPV Neutrophils % % Lymphocytes % % Monocytes % % Eosinophils % % Basophils % % Neutrophils # (1.3-7.7) k/uL Lymphocytes # (1.0-4.8) k/uL Monocytes # (0-1.0) k/uL Eosinophils # (0-0.7) k/uL Basophils # (0-0.2) k/uL Sodium (137-145) mmol/L Potassium (3.5-5.1) mmol/L Chloride (98-107) mmol/L Carbon Dioxide (22-30) mmol/L Anion Gap mmol/L BUN (7-17) mg/dL Creatinine (0.52-1.04) mg/dL Est GFR (CKD-EPI)AfAm (>60 ml/min/1.73 sqM) Est GFR (CKD-EPI)NonAf (>60 ml/min/1.73 sqM) Glucose (74-99) mg/dL Lactic Ac Sepsis Rflx Y Plasma Lactic Acid Waylon (0.7-2.0) mmol/L Calcium (8.4-10.2) mg/dL Total Bilirubin (0.2-1.3) mg/dL AST (14-36) U/L ALT (4-34) U/L Alkaline Phosphatase (38-126) U/L Total Protein (6.3-8.2) g/dL Albumin (3.5-5.0) g/dL Amylase (30-110) U/L Lipase (23-300) U/L Disposition Clinical Impression: Intractable abdominal pain, Ileus Disposition: ADMITTED IP TO THIS [facility] Condition: Stable Is patient prescribed a controlled substance at d/c from ED?: No
--- NOTE | 2023-04-06 22:13 | CT ---
EXAMINATION TYPE: CT abdomen pelvis wo con DATE OF EXAM: 04/06/2023 COMPARISON: None INDICATION: RLQ abdominal pain. Pt states she has bone CA in both hips. Hx of Breast CA. DLP: 466.5 mGycm, Automated exposure control for dose reduction was used. CONTRAST: mL of Isovue 300. Study performed without Oral Contrast TECHNIQUE: Axial images were obtained from above the diaphragm to the pubic rami in the axial plane a t 5 mm thick sections. Reconstructed images are reviewed on the computer in the coronal plane. FINDINGS: Limited CT sections are obtained the lung bases. There is a 0.6 cm nodule lateral right lung base. P osterior infiltrate is present. Correlate for pneumonia. Metastatic disease could be considered. Clos e follow-up is recommended. There appears to be obstruction of the posterior left lower lobe bronchus. Soft tissue density measur ing 3.2 cm may be present may be slightly larger in comparison. Soft tissue density is present which could be related atelectasis. Minimal right pleural effusion is present. CT ABDOMEN: Soft tissue nodules are adjacent to the stomach within the left abdomen, example image 20 1 and image 39. These measure 1.0 cm in transverse dimension. Liver: Normal Spleen: Normal Pancreas: Normal Adrenal glands: The adrenal glands are normal. Gallbladder: Normal Kidneys: No masses are evident. No hydronephrosis is present. No cysts are present. Aorta: Vascular calcification is within the aorta. Inferior vena cava: Normal. CT PELVIS: Loops of bowel within the abdomen and pelvis are normal. Multiple scattered air-fluid levels within p rominent loops of colon. Consider colonic ileus. Consider gastroenteritis. Studies lateral contras t limits bowel evaluation. Appendix: Not really identified. No dilated tubular structure or inflammatory changes are evident. Cl inical management of any suspected appendicitis will be required. Urinary bladder: Normal. Genitourinary structures: Uterus and ovaries are not identified Osseous structures: Focal sclerotic lesions are within the bilateral femoral necks and within the kimberli ac wings and sacrum. Multiple sclerotic lesions are within the vertebral bodies. Sclerotic lesions ar e in posterior right ribs within the [id number] IMPRESSION: 1. Prominent loops of colon without wall thickening. Multiple air-fluid levels are present. Consider gastroenteritis or colonic ileus within the differential. 2. Nonidentification of the appendix. No suspicious secondary signs for acute appendicitis. Clinical management of any suspected appendicitis will be required. 3. Multiple metastatic lesions to the osseous structures. 4. Metastasis to the right lower lobe may be present. Differential could include pneumonia. 5. Persistent of a density in the right infrahilar region might be causing obstruction the right lowe r lung field with atelectasis.
[2023-04-06 22:18] LABS: Basophils % (A) 0 %; Eosinophils # (A) 0.1 k/uL (0-0.7); Eosinophils % (A) 2 %; HCT 41.6 % (34.0-46.0); HGB 13.3 gm/dL (11.4-16.0); Lymphocytes # (A) 1.1 k/uL (1.0-4.8); Lymphocytes % (A) 19 %; MCH 27.9 pg (25.0-35.0); MCHC 32.1 g/dL (31.0-37.0); MCV 86.9 fL (80.0-100.0); Mean Platelet Volume 7.5; Monocytes # (A) 0.3 k/uL (0-1.0); Monocytes % (A) 6 %; Neutrophils % (A) 71 %; Platelet Count 198 k/uL (150-450); RBC 4.78 m/uL (3.80-5.40); RDW 14.5 % (11.5-15.5); WBC 5.7 k/uL (3.8-10.6)
[2023-04-06 22:59] LABS: ALT 21 U/L (4-34); AST 31 U/L (14-36); African American GFR (CKD) >90 (>60 ml/min/1.73 sqM); Albumin 4.4 g/dL (3.5-5.0); Alkaline Phosphatase 72 U/L (38-126); Amylase 48 U/L (30-110); Anion Gap 11 mmol/L; Blood Urea Nitrogen 11 mg/dL (7-17); Calcium 9.8 mg/dL (8.4-10.2); Carbon Dioxide 22 mmol/L (22-30); Chloride 108 mmol/L (98-107); Glucose 127 mg/dL (74-99); Lipase 127 U/L (23-300); Non-African American GFR(CKD) >90 (>60 ml/min/1.73 sqM); Sodium 141 mmol/L (137-145); Total Bilirubin 0.6 mg/dL (0.2-1.3); Total Protein 7.3 g/dL (6.3-8.2)
[2023-04-06 23:13] LABS: Potassium 3.5 mmol/L (3.5-5.1)
[2023-04-07] MEDS ORDERED: HYDROmorphone 0.5 MG/0.5 ML SYRINGE IVP STA (00:01)
[2023-04-07] MEDS ORDERED: HYDROmorphone 0.5 MG/0.5 ML SYRINGE IVP PRN (00:52)
[2023-04-07] MEDS ORDERED: NALOXONE 0.4 MG/ML 1 ML VIAL IV PRN (00:52)
[2023-04-07] MEDS ORDERED: MAG HYDROX/AL HYDROX/SIMETH 30 ML CUP PO PRN (00:52)
[2023-04-07] MEDS: ONDANSETRON 4 MG/2 ML VIAL IVP PRN ×2 (01:59→10:57)
[2023-04-07] MEDS: SODIUM CHLORIDE 0.9% 1,000 ML IV SCH ×3 (02:02→18:54)
[2023-04-07] MEDS ORDERED: KETOROLAC 15 MG/ML 1 ML VIAL IVP STA (02:11)
[2023-04-07 03:24] LABS: Appearance,Urine Clear (Clear); Bilirubin,Urine Negative (Negative); Blood,Urine Negative (Negative); Color,Urine Colorless; Glucose,Urine (UA) Negative (Negative); Ketones,Urine Negative (Negative); Leukocyte Esterase,Urine Negative (Negative); Nitrite,Urine Negative (Negative); PH, Urine 6.5 (5.0-8.0); Protein,Urine Negative (Negative); Specific Gravity,Urine 1.005 (1.001-1.035); Urobilinogen,Urine <2.0 mg/dL (<2.0)
[2023-04-07] MEDS: ALPRAZolam 0.25 MG TAB PO PRN ×2 (04:00→20:41)
[2023-04-07] MEDS: HYDROmorphone 1 MG/ML 1 ML SYRINGE IVP PRN ×4 (04:03→20:41)
--- NOTE | 2023-04-07 05:18 | P.HPIM ---
History of Present Illness H&P Date: 04/06/23 Chief Complaint: abd pain 67 year old female with metstatic breast cancer. patient coming in for 1 day history of severe right lower quadrant abd pain , sharp recurrent pain , 10/10 in severity , colicky in nature, no precipitating or alleviating factors, associated with nausea no vomiting, chronic diarrhea with incontinence , no GI bleeding reported, no fever, no chills. denies any urinary changes patient had bilateral mastectomy and continues to follow up with oncology , she is actively on treatment plan despite mets to the bone and possibly to lungs. denies any fever, chills, recent travel, known sick contacts, sore throat, sob , chest pain . CT of the abd suggestive of ileus . while in the ED, bladder scan done and showed large volume urinary retention she also reports left leg swelling, however, had 2 doppler US recently by her Oncologist and were negative for DVT review of systems Pertinent positives as noted in HPI. All other systems were reviewed and are negative on exam Constitutional: seems comfortable between episodes of abd pain Eyes: Anicteric sclerae, moist conjunctiva, Pupils equal round reactive to light ENMT: NC/AT Oropharynx clear, no erythema, or exudates Neck: Supple, no masses, or JVD No carotid bruits No thyromegaly Lungs: Clear to auscultation Clear to percussion Normal respiratory effort, no accessory muscle use Cardiovascular: Heart regular in rate and rhythm, No murmurs, gallops, or rubs trace peripheral edema bilateral Abdominal: Soft tenderness over suprapubic and RLQ area, with voluntary guarding , no rebound tenderness Abdomen moving with respiration sluggish bowel sounds No hepatomegaly, No splenomegaly No palpable mass No abdominal wall hernia noted Extremities: No digital cyanosis No clubbing Pedal pulses intact and symmetrical Radial pulses intact and symmetrical No calf tenderness Psychiatric: Alert and oriented to person, place and time Appropriate affect fair judgement Neuro Muscles Strength 5/5 in all 4 extremities Sensation to light touch grossly present throughout Cranial nerves II-XII grossly intact Lymphatics: no palpable cervical or supraclavicular lymph nodes Past Medical History Past Medical History: Cancer, Deep Vein Thrombosis (DVT), GERD/Reflux Additional Past Medical History / Comment(s): VERTIGO, HX OF DVT'S IN LEGS ( FROM CONTROL PILLS), HX OF KIDNEY STONES, SLIDING HIATAL HERNIA, HEPATITIS A (1989), DIAGNOSED WITH BREAST CANCER 01/2015, HX OF POLYNEPHRITIS & UTIS MULTIPLE TIMES. History of Any Multi-Drug Resistant Organisms: None Reported Past Surgical History: Adenoidectomy, Appendectomy, Hysterectomy, Tonsillectomy Additional Past Surgical History / Comment(s): CATARACT RT EYE, KIDNEY SURG FOR STONES & TORN URETER. , OOPHORECTOMY Past Anesthesia/Blood Transfusion Reactions: Previous Problems w/ Anesthesia, Family History of Problems w/ Anesthesia, Motion Sickness Additional Past Anesthesia/Blood Transfusion Reaction / Comment(s): STATES "TERRIBLE " NAUSEA AND VOMITING. TRYS TO PULL OUT IV'S AND TUBES AND TRYS TO GET UP AND LEAVE. PTS MOTHER HAS SAME REACTION TO ANESTHESIA. Past Psychological History: No Psychological Hx Reported Past Alcohol Use History: None Reported Past Drug Use History: None Reported - Past Family History Father Family Medical History: CVA/TIA, Hypertension Mother Family Medical History: No Reported History Additional Family Medical History / Comment(s): 2020 of COVID and stroke Medications and Allergies Home Medications Medication Instructions Recorded Confirmed Type Esomeprazole Magnesium [NexIUM 20 mg PO DAILY 09/19/21 11/30/21 History 24Hr] Amitriptyline HCl [Elavil] 25 mg PO HS #20 tab 09/28/21 11/30/21 Rx Letrozole [Femara] 2.5 mg PO DAILY #30 tab 09/28/21 11/30/21 Rx ALPRAZolam [Xanax] 0.25 mg PO TID PRN 11/27/21 11/30/21 History Ascorbic Acid [Vitamin C] 500 mg PO DAILY 11/27/21 11/30/21 History Calcium Carbonate [Calcium] 600 mg PO DAILY 11/27/21 11/30/21 History Docusate [Colace] 100 mg PO DAILY 11/27/21 11/30/21 History Multivitamins, Thera [Multivitamin 2 tab PO DAILY 11/27/21 11/30/21 History (formulary)] Nystatin 100,000 Unit/ml Susp 500,000 unit PO QID PRN 11/27/21 11/30/21 History [Mycostatin Oral Susp] Ondansetron [Zofran] 4 mg PO Q6H PRN 11/27/21 11/30/21 History Triamcinolone Acetonide [Nasacort] 1 spray EA NOSTRIL DAILY PRN 11/27/21 11/30/21 History Vitamin B Complex 1 cap PO DAILY 11/27/21 11/30/21 History Zoledronic Acid [Zometa] 1 dose IVPB Q30D 11/27/21 11/30/21 History traMADol HCL 50 mg PO Q6H PRN 11/27/21 11/30/21 History Cholecalciferol (Vitamin D3) 250 mcg PO DAILY 11/30/21 11/30/21 History [Vitamin D3 (125 MCG = 5,000 IU)] Olopatadine HCl [Pataday] 1 drop BOTH EYES DAILY 11/30/21 11/30/21 History Palbociclib [Ibrance] 125 mg PO DIRECTED 11/30/21 11/30/21 History Zolpidem [Ambien] 5 mg PO HS PRN 11/30/21 11/30/21 History Allergies Allergy/AdvReac Type Severity Reaction Status Date / Time garlic Allergy Swelling Verified 04/06/23 21:13 Iodinated Contrast Media Allergy Swelling Verified 04/06/23 21:13 [Iodinated Contrast- Oral of face and IV Dye] and lips levofloxacin [From Levaquin] Allergy Swelling Verified 04/06/23 21:13 of face and lips amoxicillin trihydrate AdvReac Nausea & Verified 04/06/23 21:13 [From Augmentin] Vomiting gabapentin AdvReac "I felt Verified 04/06/23 21:13 like I was in a stupor and could not function at all hydrocodone AdvReac Hallucinati Verified 04/06/23 21:13 ons metoclopramide HCl AdvReac Hallucinati Verified 04/06/23 21:13 [From Reglan] ons potassium clavulanate AdvReac Nausea & Verified 04/06/23 21:13 [From Augmentin] Vomiting Physical Exam Vitals: Vital Signs Temp Pulse Resp BP Pulse Ox 04/07/23 03:00 96 16 128/73 98 04/06/23 21:07 98.2 F 94 17 184/85 99 Intake and Output 04/06/23 04/06/23 04/07/23 14:59 22:59 06:59 Other: Weight 58.74 kg Results CBC & Chem 7: 04/06/23 22:02 04/06/23 22:02 Labs: Abnormal Lab Results - Last 24 Hours (Table) 04/06/23 04/06/23 04/07/23 Range/Units 22:02 22:02 01:58 Chloride 108 H (98-107) mmol/L Glucose 127 H (74-99) mg/dL Plasma Lactic Acid Waylon 4.3 H* 2.3 H* (0.7-2.0) mmol/L Assessment and Plan Assessment: 67 year old female with metastatic breast cancer, coming in for severe sudden onset abd pain with diarrhea , CT abd showed ileus , I discussed the case with ED doc and I accepted the admission for Ileus , pain control with anticipated length of stay < 2 midnights Ileus abd pain check C diff, due to severe diarrhea with incontinence pain control with toradol PRN 15 mg q 6 hr dilaudid 0.5 mg q 3 hrs prn IVF hydration with normal saline 100 cc per hour lactic acidosis trending down surgery consult CT abd showed Ileus no leukocytosis , no fever WBC 5.7 Hgb 13. 3 renal function unremarkable BUN 11 cr 0.67 electrolytes unremarkabl e K 3.5 Na 141 code status DNR DVT PPX lovenox 40 mg sc daily GI PPX PPI
[2023-04-07] MEDS ORDERED: LETROZOLE 2.5 MG TAB PO SCH (09:00)
[2023-04-07] MEDS: PANTOPRAZOLE 40 MG TABLET PO SCH (09:10)
[2023-04-07] MEDS: ENOXAPARIN 40 MG/0.4 ML SYRINGE SQ SCH (09:10)
--- NOTE | 2023-04-07 10:48 | P.GSCN ---
History of Present Illness Consult date: 04/07/23 History of present illness: Patient is a retired nurse with history of ulcerative colitis, radiation enteritis and now metastatic breast cancer to the spine. "I am terminal." She reports severe sharp right sided abdominal pain that caused her to present to the emergency room. She reports her pain is still present. She has minimal appetite. She reports feeling distended. No prior episode of this severity. CT of the abdomen and pelvis independently reviewed with moderate cecal and ascending colon distention consistent with her area of pain. She has had bowel movements. Plan for scheduled simethicone. May benefit from colonic decompression of the right colon. She is elevated risk for perforation with pre- existing history of ulcerative colitis. Will follow closely. Avoid straws, lactulose, and carbonated beverages that may contribute. Past Medical History Past Medical History: Cancer, Deep Vein Thrombosis (DVT), GERD/Reflux Additional Past Medical History / Comment(s): VERTIGO, HX OF DVT'S IN LEGS ( FROM CONTROL PILLS), HX OF KIDNEY STONES, SLIDING HIATAL HERNIA, HEPATITIS A (1989), DIAGNOSED WITH BREAST CANCER 01/2015, HX OF POLYNEPHRITIS & UTIS MULTIPLE TIMES. History of Any Multi-Drug Resistant Organisms: None Reported Past Surgical History: Adenoidectomy, Appendectomy, Hysterectomy, Tonsillectomy Additional Past Surgical History / Comment(s): CATARACT RT EYE, KIDNEY SURG FOR STONES & TORN URETER. , OOPHORECTOMY Past Anesthesia/Blood Transfusion Reactions: Previous Problems w/ Anesthesia, Family History of Problems w/ Anesthesia, Motion Sickness Additional Past Anesthesia/Blood Transfusion Reaction / Comm: STATES "TERRIBLE " NAUSEA AND VOMITING. TRYS TO PULL OUT IV'S AND TUBES AND TRYS TO GET UP AND LEAVE. PTS MOTHER HAS SAME REACTION TO ANESTHESIA. Past Psychological History: No Psychological Hx Reported Past Alcohol Use History: None Reported Past Drug Use History: None Reported - Past Family History Father Family Medical History: CVA/TIA, Hypertension Mother Family Medical History: No Reported History Additional Family Medical History / Comment(s): 2020 of COVID and stroke Medications and Allergies Home Medications Medication Instructions Recorded Confirmed Type Esomeprazole Magnesium [NexIUM 20 mg PO DAILY 09/19/21 11/30/21 History 24Hr] Amitriptyline HCl [Elavil] 25 mg PO HS #20 tab 09/28/21 11/30/21 Rx Letrozole [Femara] 2.5 mg PO DAILY #30 tab 09/28/21 11/30/21 Rx ALPRAZolam [Xanax] 0.25 mg PO TID PRN 11/27/21 11/30/21 History Ascorbic Acid [Vitamin C] 500 mg PO DAILY 11/27/21 11/30/21 History Calcium Carbonate [Calcium] 600 mg PO DAILY 11/27/21 11/30/21 History Docusate [Colace] 100 mg PO DAILY 11/27/21 11/30/21 History Multivitamins, Thera [Multivitamin 2 tab PO DAILY 11/27/21 11/30/21 History (formulary)] Nystatin 100,000 Unit/ml Susp 500,000 unit PO QID PRN 11/27/21 11/30/21 History [Mycostatin Oral Susp] Ondansetron [Zofran] 4 mg PO Q6H PRN 11/27/21 11/30/21 History Triamcinolone Acetonide [Nasacort] 1 spray EA NOSTRIL DAILY PRN 11/27/21 11/30/21 History Vitamin B Complex 1 cap PO DAILY 11/27/21 11/30/21 History Zoledronic Acid [Zometa] 1 dose IVPB Q30D 11/27/21 11/30/21 History traMADol HCL 50 mg PO Q6H PRN 11/27/21 11/30/21 History Cholecalciferol (Vitamin D3) 250 mcg PO DAILY 11/30/21 11/30/21 History [Vitamin D3 (125 MCG = 5,000 IU)] Olopatadine HCl [Pataday] 1 drop BOTH EYES DAILY 11/30/21 11/30/21 History Palbociclib [Ibrance] 125 mg PO DIRECTED 11/30/21 11/30/21 History Zolpidem [Ambien] 5 mg PO HS PRN 11/30/21 11/30/21 History Allergies Allergy/AdvReac Type Severity Reaction Status Date / Time garlic Allergy Swelling Verified 04/06/23 21:13 Iodinated Contrast Media Allergy Swelling Verified 04/06/23 21:13 [Iodinated Contrast- Oral of face and IV Dye] and lips levofloxacin [From Levaquin] Allergy Swelling Verified 04/06/23 21:13 of face and lips amoxicillin trihydrate AdvReac Nausea & Verified 04/06/23 21:13 [From Augmentin] Vomiting gabapentin AdvReac "I felt Verified 04/06/23 21:13 like I was in a stupor and could not function at all hydrocodone AdvReac Hallucinati Verified 04/06/23 21:13 ons metoclopramide HCl AdvReac Hallucinati Verified 04/06/23 21:13 [From Reglan] ons potassium clavulanate AdvReac Nausea & Verified 04/06/23 21:13 [From Augmentin] Vomiting Surgical - Exam Vital Signs Temp Pulse Resp BP Pulse Ox 98.2 F 94 17 184/85 99 04/06/23 21:07 04/06/23 21:07 04/06/23 21:07 04/06/23 21:07 04/06/23 21:07 Results - Labs 04/06/23 22:02 04/06/23 22:02 Abnormal Lab Results - Last 24 Hours (Table) 04/06/23 04/06/23 04/07/23 Range/Units 22:02 22:02 01:58 Chloride 108 H (98-107) mmol/L Glucose 127 H (74-99) mg/dL Plasma Lactic Acid Waylon 4.3 H* 2.3 H* (0.7-2.0) mmol/L Diabetes panel 04/06/23 Range/Units 22:02 Sodium 141 (137-145) mmol/L Potassium 3.5 (3.5-5.1) mmol/L Chloride 108 H (98-107) mmol/L Carbon Dioxide 22 (22-30) mmol/L BUN 11 (7-17) mg/dL Creatinine 0.67 (0.52-1.04) mg/dL Glucose 127 H (74-99) mg/dL Calcium 9.8 (8.4-10.2) mg/dL AST 31 (14-36) U/L ALT 21 (4-34) U/L Alkaline Phosphatase 72 (38-126) U/L Total Protein 7.3 (6.3-8.2) g/dL Albumin 4.4 (3.5-5.0) g/dL Calcium panel 04/06/23 Range/Units 22:02 Calcium 9.8 (8.4-10.2) mg/dL Albumin 4.4 (3.5-5.0) g/dL Pituitary panel 04/06/23 Range/Units 22:02 Sodium 141 (137-145) mmol/L Potassium 3.5 (3.5-5.1) mmol/L Chloride 108 H (98-107) mmol/L Carbon Dioxide 22 (22-30) mmol/L BUN 11 (7-17) mg/dL Creatinine 0.67 (0.52-1.04) mg/dL Glucose 127 H (74-99) mg/dL Calcium 9.8 (8.4-10.2) mg/dL Adrenal panel 04/06/23 Range/Units 22:02 Sodium 141 (137-145) mmol/L Potassium 3.5 (3.5-5.1) mmol/L Chloride 108 H (98-107) mmol/L Carbon Dioxide 22 (22-30) mmol/L BUN 11 (7-17) mg/dL Creatinine 0.67 (0.52-1.04) mg/dL Glucose 127 H (74-99) mg/dL Calcium 9.8 (8.4-10.2) mg/dL Total Bilirubin 0.6 (0.2-1.3) mg/dL AST 31 (14-36) U/L ALT 21 (4-34) U/L Alkaline Phosphatase 72 (38-126) U/L Total Protein 7.3 (6.3-8.2) g/dL Albumin 4.4 (3.5-5.0) g/dL
[2023-04-07] MEDS: SIMETHICONE 40 MG/0.6 ML DROPS 2,000 MG/30 ML BOTTLE PO SCH ×4 (12:07→20:41)
[2023-04-07] MEDS ORDERED: LIDOCAINE 2% GLYDO JELLY 11 ML APPL MISCELLANE PRN (15:26)
[2023-04-07] MEDS ORDERED: NYSTATIN 100,000 UNIT/ML SUSP 500,000 UNIT/5 ML CUP PO PRN (15:29)
--- NOTE | 2023-04-07 16:50 | P.PN ---
Subjective Progress Note Date: 04/07/23 (seen at 1330) Patient is a 67-year-old with metastatic breast cancer to lungs and bones and GERD who presented to the hospital with complaints of right lower quadrant pain. In the ER she underwent an extensive evaluation. On arrival she was hypertensive with a blood pressure of 184/85. Laboratory analysis was remarkable for lactic acid of 4.3. CT abdomen and pelvis demonstrated ga stroenteritis versus ileus. She was admitted with surgery and oncology consulted. She was noted to have urinary retention on bladder US and menendez was inserted. Patient seen and examined at bedside with family present. She is having slightly less abdominal pain she has had a bowel movement passed some gas. She denies any nausea. No other complaints currently. Vital signs reviewed General: nontoxic, no distress, appears at stated age, gaunt with temporal wasting Cardiovascular: S1S2 reg, no murmur, positive posterior tibial pulse bilateral, Lungs: CTA bilateral, no rhonchi, no rales , no accessory muscle use Abdominal: soft, + TTP RUQ and RLQ, no guarding, no appreciable organomegaly Ext: no gross muscle atrophy, no edema b/l lower extremities, no contractures Neuro: CN II-XI grossly intact, no focal neuro deficits Psych: Alert, oriented, appropriate affect Assessment/Plan: Severe diarrhea with abdominal pain Colonic distension Breast cancer with metastasis to lung and bone - concerns for Piqray side effect vs gastroenteritis un likely ileus given diarrhea - await surgery recs - Case discussed with Dr. Lamas. Concerns for possible reaction to piqray - Continue pain control with Dilaudid 1 mg IV every 3 hours for severe pain, Toradol 15 mg every 6 hours when necessary - Protonix 40 mg daily - continue with clear liquid diet - Normal saline 100 mL/h - repeat abd x-ray in AM Urinary retention -Status post catheter insertion -Anticipate this to get better with a gaseous distention of the colon improves, would keep catheter in until repeat abdomen shows improvement. Chronic: GERD Prior DVT Imaging: None new. Data Review: None new. DVT prophylaxis: Lovenox Anticipated discharge date: Pending Clinical Course Anticipated discharge place: Pending Clinical Course This dictation was prepared using [employer] voice recognition software. Though every attempt is made to correct errors during dictation some may still exist. Objective - Vital Signs Vital signs: Vital Signs Temp 98.9 F 04/07/23 07:00 Pulse 87 04/07/23 07:00 Resp 17 04/07/23 07:00 BP 140/70 04/07/23 07:00 Pulse Ox 100 04/07/23 07:00 FiO2 Intake & Output 04/06/23 04/07/23 04/07/23 18:59 06:59 18:59 Output Total 1050 Balance -1050 Weight 58.74 kg Output: Urine 1050 Other: Voiding Method Indwelling Catheter - Labs CBC & Chem 7: 04/06/23 22:02 04/06/23 22:02 Labs: Abnormal Lab Results - Last 24 Hours (Table) 04/06/23 04/06/23 04/07/23 Range/Units 22:02 22:02 01:58 Chloride 108 H (98-107) mmol/L Glucose 127 H (74-99) mg/dL Plasma Lactic Acid Waylon 4.3 H* 2.3 H* (0.7-2.0) mmol/L
[2023-04-07] MEDS: KETOROLAC 15 MG/ML 1 ML VIAL IVP PRN (17:38)
[2023-04-07] MEDS: ZOLPIDEM 5 MG TAB PO PRN (20:41)
[2023-04-07] MEDS: CALCIUM CARBONATE 500 MG CHEWABLE PO SCH (20:42)
[2023-04-07] MEDS: AMITRIPTYLINE HCL 10 MG TAB PO SCH (20:42)
[2023-04-07] MEDS ORDERED: AMITRIPTYLINE HCL 25 MG TAB PO SCH (21:00)
--- NOTE | 2023-04-07 22:48 | P.CONS ---
History of Present Illness - Reason for Consult Consult date: 04/07/23 Metastatic breast cancer - Chief Complaint Abdominal pain - History of Present Illness Ms. Pereira is a 67-year-old woman with a past medical history sniffing and for metastatic breast cancer with metastases to the bone currently on Piqray and Faslodex who presents for with acute abdominal pain. She notes having persistently intermittent diarrhea secondary to Piqray. While sitting on the toilet on the evening of 04/06/2023, she developed diffuse acute abdominal pain, which she noted was stabbing in nature. She denied any aggravating or relieving factors. She denied any sick contacts or other close contacts with similar symptoms. She noted having occasional abdominal cramping previously while on Piqray, and had been prescribed Toradol. She did take oral Toradol that was prescribed, but provided no relief. She last took Piqray 200 mg daily the morning of 04/06/2023. Given her persistent abdominal pain, she presented to the ED for additional management recommendations. On presentation in the ED, blood pressure was elevated to 184/85. Labs reveal no acute abnormalities. Amylase and lipase were within normal limits with UA being negative. CT abdomen/pelvis on 04/06/2023 noted multiple loops of colon without wall thickening but with air-fluid levels consistent with colonic ileus or gastroenteritis. In addition to Toradol 30 mg IV, she was started on IV Dilaudid. She was admitted to internal medicine for additional management. Since admission, she notes improvement in her pain, but notes it is still persistent. Her diarrhea has decreased and has not had bowel movement since admission. Review of Systems 14 point review of systems conducted with pertinent positives and negatives as noted per HPI Past Medical History Past Medical History: Cancer, Deep Vein Thrombosis (DVT), GERD/Reflux Additional Past Medical History / Comment(s): VERTIGO, HX OF DVT'S IN LEGS ( FROM CONTROL PILLS), HX OF KIDNEY STONES, SLIDING HIATAL HERNIA, HEPATITIS A (1989), DIAGNOSED WITH BREAST CANCER 01/2015, HX OF POLYNEPHRITIS & UTIS MULTIPLE TIMES. History of Any Multi-Drug Resistant Organisms: None Reported Past Surgical History: Adenoidectomy, Appendectomy, Hysterectomy, Tonsillectomy Additional Past Surgical History / Comment(s): CATARACT RT EYE, KIDNEY SURG FOR STONES & TORN URETER. , OOPHORECTOMY Past Anesthesia/Blood Transfusion Reactions: Previous Problems w/ Anesthesia, Family History of Problems w/ Anesthesia, Motion Sickness Additional Past Anesthesia/Blood Transfusion Reaction / Comm: STATES "TERRIBLE " NAUSEA AND VOMITING. TRYS TO PULL OUT IV'S AND TUBES AND TRYS TO GET UP AND LEAVE. PTS MOTHER HAS SAME REACTION TO ANESTHESIA. Past Psychological History: No Psychological Hx Reported Past Alcohol Use History: None Reported Past Drug Use History: None Reported - Past Family History Father Family Medical History: CVA/TIA, Hypertension Mother Family Medical History: No Reported History Additional Family Medical History / Comment(s): 2020 of COVID and stroke Medications and Allergies Home Medications Medication Instructions Recorded Confirmed Type ALPRAZolam [Xanax] 0.25 mg PO BID PRN 11/27/21 04/07/23 History Nystatin 100,000 Unit/ml Susp 5 ml PO QID PRN 11/27/21 04/07/23 History [Mycostatin Oral Susp] Zoledronic Acid [Zometa] 1 dose IVPB Q30D 11/27/21 04/07/23 History traMADol HCL 50 mg PO TID PRN 11/27/21 04/07/23 History Zolpidem [Ambien] 5 mg PO HS 11/30/21 04/07/23 History ALPRAZolam [Xanax] 0.25 mg PO DAILY 04/07/23 04/07/23 History Alpelisib [Piqray] 200 mg PO DAILY@0730 04/07/23 04/07/23 History Alpelisib [Piqray] 250 mg PO DIRECTED 04/07/23 04/07/23 History Amitriptyline HCl [Elavil] 20 mg PO HS@209904/07/23 04/07/23 History Budesonide [Entocort EC] 3 mg PO PC-BID 04/07/23 04/07/23 History Calcium Carbonate [Tums] 500 mg PO HS@209904/07/23 04/07/23 History Collagen Gummy (Unknown Strength) 1 cap PO DAILY 04/07/23 04/07/23 History Diphenoxylate HCl/Atropine 1 tab PO TID PRN 04/07/23 04/07/23 History [Lomotil 2.5-0.025 mg Tablet] Fulvestrant 1 dose IV Q30D 04/07/23 04/07/23 History Ibuprofen/Acetaminophen [Advil 1 tab PO BID PRN 04/07/23 04/07/23 History Dual Action 125MG(IBU)-250MG(ACET)] Loperamide [Imodium] 2 mg PO QID PRN 04/07/23 04/07/23 History Multivitamin [Multivitamins Adult 1 tab PO DAILY 04/07/23 04/07/23 History Gummies] Promethazine Suppository 12.5 mg RECTAL Q6H PRN 04/07/23 04/07/23 History [Phenergan] Promethazine [Phenergan] 25 mg PO Q6HR PRN 04/07/23 04/07/23 History Vitamin B Complex Gummy 1 cap PO DAILY 04/07/23 04/07/23 History Vitamin C 1,000mg Gummy 2,000 mg PO DAILY 04/07/23 04/07/23 History Vitamin D3 50mcg Gummies 100 mcg PO DAILY 04/07/23 04/07/23 History Allergies Allergy/AdvReac Type Severity Reaction Status Date / Time garlic Allergy Swelling Verified 04/07/23 11:36 Iodinated Contrast Media Allergy Swelling Verified 04/07/23 11:36 [Iodinated Contrast- Oral of face and IV Dye] and lips levofloxacin [From Levaquin] Allergy Swelling Verified 04/07/23 11:36 of face and lips amoxicillin trihydrate AdvReac Nausea & Verified 04/07/23 11:36 [From Augmentin] Vomiting gabapentin AdvReac "I felt Verified 04/07/23 11:36 like I was in a stupor and could not function at all hydrocodone AdvReac Hallucinati Verified 04/07/23 11:36 ons metoclopramide HCl AdvReac Hallucinati Verified 04/07/23 11:36 [From Reglan] ons potassium clavulanate AdvReac Nausea & Verified 04/07/23 11:36 [From Augmentin] Vomiting Physical Exam Vitals: Vital Signs Temp Pulse Pulse Resp BP BP Pulse Ox 04/07/23 20:03 98.8 F 80 16 126/73 98 04/07/23 14:49 97.6 F 83 16 150/85 100 04/07/23 07:00 98.9 F 87 17 140/70 100 04/07/23 06:25 96 17 142/66 95 04/07/23 04:30 90 14 133/79 95 04/07/23 03:30 87 18 171/71 98 04/07/23 03:00 96 16 128/73 98 Intake and Output 04/07/23 04/07/23 04/07/23 06:59 14:59 22:59 Intake Total 590 Output Total 1250 600 Balance -660 -600 Intake: Oral 590 Output: Urine 1250 600 Other: Voiding Method Indwelling Catheter Indwelling Catheter # Bowel Movements 1 Weight 58.74 kg - Constitutional General appearance: cooperative, no acute distress - EENT Eyes: EOMI - Respiratory Respiratory: bilateral: CTA - Cardiovascular Rhythm: regular - Gastrointestinal General gastrointestinal: distended, hyperactive bowel sounds, soft Localized gastrointestinal: tender: RLQ (Guarding) - Integumentary Integumentary: no rash - Neurologic Neurologic: CNII-XII intact Results CBC & Chem 7: 04/06/23 22:02 04/06/23 22:02 Labs: Abnormal Lab Results - Last 24 Hours (Table) 04/06/23 04/06/23 04/07/23 Range/Units 22:02 22:02 01:58 Chloride 108 H (98-107) mmol/L Glucose 127 H (74-99) mg/dL Plasma Lactic Acid Waylon 4.3 H* 2.3 H* (0.7-2.0) mmol/L Assessment and Plan (1) Intractable abdominal pain Current Visit: Yes Status: Acute Code(s): R10.9 - UNSPECIFIED ABDOMINAL PAIN SNOMED Code(s): 66214470 (2) Breast cancer metastasized to bone Current Visit: No Status: Chronic Code(s): C50.919 - MALIGNANT NEOPLASM OF UNSP SITE OF UNSPECIFIED FEMALE BREAST; C79.51 - SECONDARY MALIGNANT NEOPLASM OF BONE SNOMED Code(s): 54221188 Plan: #Abdominal pain -Developed acute abdominal pain on 04/06/2023 while seated on toilet -CT abdomen/pelvis on admission notes multiple loops of colon with air-fluid levels without wall thickening consistent with ileus versus gastroenteritis -Labs including amylase and lipase are within normal limits -Tenderness with guarding on exam in the right lower quadrant -This could be secondary to Piqray, which she last took on the morning of 04/06/2023 -Recommend holding Piqray at this time -Anticipate this to improve over the next 24 to 48 hours #Metastatic breast cancer -Currently on Piqray and Faslodex -She has not been able to tolerate full dose Piqray due to persistent diarrhea -If abdominal pain is in fact from Piqray, she was on the lowest dose recommended at 200 mg daily -She has clinic visit on 04/19/2023 to review whether this should be continued or not Lucy Lamas MD
[2023-04-08] MEDS: SODIUM CHLORIDE 0.9% 1,000 ML IV SCH ×2 (04:08→16:20)
[2023-04-08] MEDS: PANTOPRAZOLE 40 MG TABLET PO SCH (05:35)
[2023-04-08] MEDS: KETOROLAC 15 MG/ML 1 ML VIAL IVP PRN (05:48)
[2023-04-08] MEDS: HYDROmorphone 1 MG/ML 1 ML SYRINGE IVP PRN (06:34)
--- NOTE | 2023-04-08 08:01 | XR ---
EXAMINATION TYPE: XR abdomen 2V DATE OF EXAM: 04/08/2023 COMPARISON: CT abdomen pelvis 04/06/2023 HISTORY: Colonic distention TECHNIQUE: Supine and upright images of the abdomen is obtained FINDINGS: Small bowel demonstrates no evidence for dilatation or air fluid levels. Gas and fecal material is seen in non-distended colon. No convincing evidence for pneumoperitoneum. Left-sided pelvic phlebolith. The lung bases are clear. Partial visualization of central venous catheter with distal tip at the sup erior cavoatrial junction. No acute osseous abnormality. Fixation hardware involving the left proximal femur demonstrated. IMPRESSION: Overall nonobstructive bowel gas pattern.
[2023-04-08 09:01] LABS: HCT 36.3 % (37.2-46.3); MCHC 30.3 d/dL (32.0-37.0); Mean Platelet Volume 9.5 FL (9.5-12.2); NRBC Per 100 WBC 0 X 10*3/uL (0.00-0.01); Platelet Count 161 X 10*3/uL (140-440); RBC 4.08 X 10*6/uL (4.10-5.20); RDW 14.7 % (11.5-14.5); WBC 6.03 X 10*3/uL (4.50-10.00)
[2023-04-08 09:02] LABS: BUN/Creat Ratio 7.67 Ratio (12.00-20.00); Blood Urea Nitrogen 4.6 mg/dL (9.0-27.0); Chloride 111 mmol/L (96-109); Glucose 91 mg/dL (70-110); Potassium 2.8 mmol/L (3.5-5.5); Sodium 144 mmol/L (135-145)
[2023-04-08 09:03] LABS: Calcium 7.4 mg/dL (8.7-10.3); Carbon Dioxide 24.3 mmol/L (21.6-31.8)
[2023-04-08] MEDS: ENOXAPARIN 40 MG/0.4 ML SYRINGE SQ SCH (09:43)
[2023-04-08] MEDS: SIMETHICONE 40 MG/0.6 ML DROPS 2,000 MG/30 ML BOTTLE PO SCH ×4 (09:43→20:50)
[2023-04-08] MEDS: ALPRAZolam 0.25 MG TAB PO SCH (09:43)
[2023-04-08] MEDS: MULTIVITAMINS, THERA 1 EACH TAB PO SCH (09:43)
--- NOTE | 2023-04-08 14:06 | P.PN ---
Subjective Progress Note Date: 04/08/23 Patient is a 67-year-old with metastatic breast cancer to lungs and bones and GERD who presented to the hospital with complaints of right lower quadrant pain. In the ER she underwent an extensive evaluation. On arrival she was hypertensive with a blood pressure of 184/85. Laboratory analysis was remarkable for lactic acid of 4.3. CT abdomen and pelvis demonstrated gastroenteritis versus ileus. She was admitted with surgery and oncology consulted. She was noted to have urinary retention on bladder US and menendez was inserted. Patient seen and examined at bedside. Occasional abdominal pain with eating. Having a lot of gas. Had bowel movement yesterday. She denies any nausea. No other complaints currently. Vital signs reviewed General: nontoxic, no distress, appears at stated age, gaunt with temporal wasting Cardiovascular: S1S2 reg, no murmur, positive posterior tibial pulse bilateral, Lungs: CTA bilateral, no rhonchi, no rales , no accessory muscle use Abdominal: soft, + TTP RUQ and RLQ, no guarding, no appreciable organomegaly Ext: no gross muscle atrophy, no edema b/l lower extremities, no contractures Neuro: CN II-XI grossly intact, no focal neuro deficits Psych: Alert, oriented, appropriate affect Assessment/Plan: Colonic distension Breast cancer with metastasis to lung and bone -Surgery following, on a scheduled simethicone, may benefit from colonic decompression of the right colon -Oncology following, hold piqray - Continue pain control with Dilaudid 0.5 mg IV every 3 hours for severe pain, Toradol 15 mg every 6 hours when necessary - Protonix 40 mg daily - continue with clear liquid diet - Normal saline 100 mL/h Urinary retention -Status post catheter insertion -Anticipate this to get better with a gaseous distention of the colon improves, would keep catheter in until repeat abdomen shows improvement. Hypokalemia -Potassium 80 mEq oral given, repeat BMP and magnesium tomorrow Chronic: GERD Prior DVT Imaging: Abdominal x-ray report reviewed, overall nonobstructive bowel gas pattern Data Review: Hemoglobin 11, potassium 2.8, creatinine 0.6 DVT prophylaxis: Lovenox Anticipated discharge date: Pending Clinical Course Anticipated discharge place: Pending Clinical Course Objective - Vital Signs Vital signs: Vital Signs Temp 99.2 F 04/08/23 07:50 Pulse 82 04/08/23 07:50 Resp 16 04/08/23 07:50 BP 113/67 04/08/23 07:50 Pulse Ox 95 04/08/23 07:50 FiO2 Intake & Output 04/07/23 04/08/23 04/08/23 18:59 06:59 18:59 Intake Total 590 200 118 Output Total 1850 500 Balance -1260 -300 118 Intake: Oral 590 200 118 Output: Urine 1850 500 Other: Voiding Method Indwelling Catheter Indwelling Catheter Indwelling Catheter # Bowel Movements 1 - Labs CBC & Chem 7: 04/08/23 05:44 04/08/23 05:44 Labs: Abnormal Lab Results - Last 24 Hours (Table) 04/08/23 04/08/23 Range/Units 05:44 05:44 RBC 4.08 L (4.10-5.20) X 10*6/uL Hgb 11.0 L (12.0-15.0) d/dL Hct 36.3 L (37.2-46.3) % MCHC 30.3 L (32.0-37.0) d/dL RDW 14.7 H (11.5-14.5) % Potassium 2.8 L (3.5-5.5) mmol/L Chloride 111 H (96-109) mmol/L BUN 4.6 L (9.0-27.0) mg/dL BUN/Creatinine Ratio 7.67 L (12.00-20.00) Ratio Calcium 7.4 L (8.7-10.3) mg/dL
--- NOTE | 2023-04-08 14:17 | P.PN ---
Subjective Progress Note Date: 04/08/23 CHIEF COMPLAINT: Abdominal pain HISTORY OF PRESENT ILLNESS: Patient continues to have right-sided and right lower quadrant abdominal pain. She does report the pain is less since presentation. She has been having diarrhea. She did have a bowel movement yesterday that had liquid and solid stool. Reports no blood in the stool. She does have a history of metastatic breast cancer. Stool for C. diff was negative. History of ulcerative colitis. Abdominal x-ray shows nonobstructive bowel gas. Fecal material and gas seen in nondistended colon.. She is currently liquid diet. Afebrile. WBC 6.03. Potassium 2.8 PHYSICAL EXAM: VITAL SIGNS: Reviewed GENERAL: Well-developed in no acute distress. HEENT: No sclera icterus. Extraocular movements grossly intact. Moist buccal mucosa. Head is atraumatic, normocephalic. Hears conversational speech. No nasal drainage. NECK: Supple without lymphadenopathy. CHEST: Non-labored respirations and equal bilateral excursions. CARDIOVASCULAR: Palpable 2+ radial pulses. ABDOMEN: Soft. Nondistended. Tenderness to palpation of the right side of the abdomen. MUSCULOSKELETAL: No clubbing or cyanosis. NEUROLOGIC: No focal or lateralizing signs. Cranial nerves II through XII grossly intact. PSYCH: Appropriate affect. Alert and oriented to person, place and time. SKIN: Well perfused. Good skin turgor. ASSESSMENT: 1. Right-sided abdominal pain 2. Gastroenteritis 3. Ileus 4. Metastatic breast cancer 5. Diarrhea possibly secondary to Piqray noted per oncology service 6. History of ulcerative colitis 7. Hypokalemia PLAN: -Continue supportive care -Continue current liquid diet -Continue IV fluids -Encourage patient to ambulate -Continue pain management -Piqray currently on hold -Potassium being replaced by medicine service Physician Processor Helper note has been reviewed by physician. Signing provider agrees with the documented findings, assessment, and plan of care. Objective - Vital Signs Vital signs: Vital Signs Temp 99.2 F 04/08/23 07:50 Pulse 82 04/08/23 07:50 Resp 16 04/08/23 07:50 BP 113/67 04/08/23 07:50 Pulse Ox 95 04/08/23 07:50 FiO2 Intake & Output 04/07/23 04/08/23 04/08/23 18:59 06:59 18:59 Intake Total 590 200 Output Total 1850 500 Balance -1260 -300 Intake: Oral 590 200 Output: Urine 1850 500 Other: Voiding Method Indwelling Catheter Indwelling Catheter Indwelling Catheter # Bowel Movements 1 - Labs CBC & Chem 7: 04/08/23 05:44 04/08/23 05:44 Labs: Abnormal Lab Results - Last 24 Hours (Table) 04/08/23 04/08/23 Range/Units 05:44 05:44 RBC 4.08 L (4.10-5.20) X 10*6/uL Hgb 11.0 L (12.0-15.0) d/dL Hct 36.3 L (37.2-46.3) % MCHC 30.3 L (32.0-37.0) d/dL RDW 14.7 H (11.5-14.5) % Potassium 2.8 L (3.5-5.5) mmol/L Chloride 111 H (96-109) mmol/L BUN 4.6 L (9.0-27.0) mg/dL BUN/Creatinine Ratio 7.67 L (12.00-20.00) Ratio Calcium 7.4 L (8.7-10.3) mg/dL
[2023-04-08 15:57] VITALS: BMI 22.6
--- NOTE | 2023-04-08 16:07 | P.PN ---
Subjective Progress Note Date: 04/08/23 Principal diagnosis: abdominal pain At today's visit patient is resting comfortably in bed. Patient reports reports improvement abdominal pain since admission but is having intermittent right lower quadrant abdominal pain when eating as well as increased gas discomfort with adequate pain control on IV pain meds. Remains on clear liquid diet. Reports 1 episode of diarrhea yesterday but has had no episodes today. Also reporting intermittent nausea but denies vomiting. Improvement with Zofran. Objective - Vital Signs Vital signs: Vital Signs Temp 97.6 F 04/08/23 14:23 Pulse 69 04/08/23 14:23 Resp 16 04/08/23 14:23 BP 128/79 04/08/23 14:23 Pulse Ox 99 04/08/23 14:23 FiO2 Intake & Output 04/07/23 04/08/23 04/08/23 18:59 06:59 18:59 Intake Total 590 200 118 Output Total 1850 500 Balance -1260 -300 118 Weight 58.74 kg Intake: Oral 590 200 118 Output: Urine 1850 500 Other: Voiding Method Indwelling Catheter Indwelling Catheter Indwelling Catheter # Voids 2 # Bowel Movements 1 - Constitutional General appearance: Present: average body habitus, no acute distress - EENT Eyes: Present: anicteric sclerae, EOMI ENT: Present: hearing grossly normal - Respiratory Details: breathing is even and unlabored - Cardiovascular Details: skin warm and dry - Gastrointestinal General gastrointestinal: Present: soft, tenderness Localized gastrointestinal: tender: RLQ, guarding: RLQ - Integumentary Integumentary: Absent: cyanotic, jaundiced - Neurologic Neurologic Comment(s): grossly intact - Musculoskeletal Musculoskeletal: Present: strength equal bilaterally - Psychiatric Psychiatric: Present: A&O x's 3, appropriate affect, intact judgment & insight - Labs CBC & Chem 7: 04/08/23 05:44 04/08/23 05:44 Labs: Abnormal Lab Results - Last 24 Hours (Table) 04/08/23 04/08/23 Range/Units 05:44 05:44 RBC 4.08 L (4.10-5.20) X 10*6/uL Hgb 11.0 L (12.0-15.0) d/dL Hct 36.3 L (37.2-46.3) % MCHC 30.3 L (32.0-37.0) d/dL RDW 14.7 H (11.5-14.5) % Potassium 2.8 L (3.5-5.5) mmol/L Chloride 111 H (96-109) mmol/L BUN 4.6 L (9.0-27.0) mg/dL BUN/Creatinine Ratio 7.67 L (12.00-20.00) Ratio Calcium 7.4 L (8.7-10.3) mg/dL - Imaging and Cardiology Abdominal x-ray: report reviewed Assessment and Plan (1) Intractable abdominal pain Current Visit: Yes Status: Acute Priority: High Code(s): R10.9 - UNSPECIFIED ABDOMINAL PAIN SNOMED Code(s): 64662320 (2) Breast cancer metastasized to bone Current Visit: Yes Status: Chronic Priority: High Code(s): C50.919 - MALIGNANT NEOPLASM OF UNSP SITE OF UNSPECIFIED FEMALE BREAST; C79.51 - SECONDARY MALIGNANT NEOPLASM OF BONE SNOMED Code(s): 38783578 Plan: #Abdominal pain -Developed acute abdominal pain on 04/06/2023 while seated on toilet -CT abdomen/pelvis on admission notes multiple loops of colon with air-fluid levels without wall thickening consistent with ileus versus gastroenteritis. Abdominal x-ray today revealed overall nonobstructive bowel gas pattern -Labs including amylase and lipase are within normal limits -C diff negative. Stool culture ordered -Tenderness with guarding on exam in the right lower quadrant, improved since admission -This could be secondary to Piqray, which she last took on the morning of 04/06/2023 -Recommend holding Piqray at this time -Will convert IV pain meds to oral pain med regimen so patient has adequate pain control for discharge. Spoke with pharmacy regarding conversion, will start patient on OxyContin IR 10 mg every 4hrs as needed. Spoke with nursing and asked to give oral pain meds and only give IV push meds for breakthrough pain. Will continue to monitor and make adjustments as needed #Metastatic breast cancer -Currently on Piqray and Faslodex -She has not been able to tolerate full dose Piqray due to persistent diarrhea -If abdominal pain is in fact from Piqray, she was on the lowest dose recommended at 200 mg daily -She has clinic visit on 04/19/2023 to review whether this should be continued or not
[2023-04-08] MEDS: POTASSIUM CHLORIDE ER 20 MEQ TAB.ER PO SCH ×2 (16:15→17:56)
[2023-04-08] MEDS: AMITRIPTYLINE HCL 10 MG TAB PO SCH (20:49)
[2023-04-08] MEDS: ALPRAZolam 0.25 MG TAB PO PRN (20:49)
[2023-04-08] MEDS: CALCIUM CARBONATE 500 MG CHEWABLE PO SCH (20:49)
[2023-04-09] MEDS: SODIUM CHLORIDE 0.9% 1,000 ML IV SCH ×3 (04:11→23:11)
[2023-04-09] MEDS: PANTOPRAZOLE 40 MG TABLET PO SCH (06:13)
[2023-04-09] MEDS: SIMETHICONE 40 MG/0.6 ML DROPS 2,000 MG/30 ML BOTTLE PO SCH ×4 (09:15→20:33)
[2023-04-09] MEDS: MULTIVITAMINS, THERA 1 EACH TAB PO SCH (09:15)
[2023-04-09] MEDS: ENOXAPARIN 40 MG/0.4 ML SYRINGE SQ SCH (09:15)
[2023-04-09] MEDS: ALPRAZolam 0.25 MG TAB PO SCH (09:16)
[2023-04-09] MEDS: ONDANSETRON 4 MG/2 ML VIAL IVP PRN (09:18)
[2023-04-09 11:10] LABS: Blood Urea Nitrogen 4.2 mg/dL (9.0-27.0); Calcium 7.5 mg/dL (8.7-10.3); Carbon Dioxide 25.1 mmol/L (21.6-31.8); Chloride 115 mmol/L (96-109); Glucose 86 mg/dL (70-110); Magnesium 1.6 mg/dL (1.5-2.4); Potassium 3.3 mmol/L (3.5-5.5); Sodium 147 mmol/L (135-145)
[2023-04-09 11:22] LABS: Basophils # (A) 0.02 X 10*3/uL (0.00-0.10); Basophils % (A) 0.5 %; Eosinophils # (A) 0.22 X 10*3/uL (0.04-0.35); Eosinophils % (A) 5.7 %; HCT 32.8 % (37.2-46.3); HGB 9.8 d/dL (12.0-15.0); Lymphocytes # (A) 0.71 X 10*3/uL (0.90-5.00); Lymphocytes % (A) 18.5 %; MCH 26.6 pg (27.0-32.0); MCHC 29.9 d/dL (32.0-37.0); MCV 88.9 FL (80.0-97.0); Mean Platelet Volume 9.6 FL (9.5-12.2); Monocytes # (A) 0.51 X 10*3/uL (0.20-1.00); Monocytes % (A) 13.3 %; NRBC Per 100 WBC 0 X 10*3/uL (0.00-0.01); Neutrophils # (A) 2.36 X 10*3/uL (1.80-7.70); Neutrophils % (A) 61.7 %; Platelet Count 160 X 10*3/uL (140-440); RBC 3.69 X 10*6/uL (4.10-5.20); RDW 14.6 % (11.5-14.5); WBC 3.83 X 10*3/uL (4.50-10.00)
[2023-04-09] MEDS ORDERED: traMADol 50 MG TAB PO PRN (11:24)
[2023-04-09] MEDS ORDERED: ONDANSETRON 4 MG/2 ML VIAL IVP PRN (11:29)
[2023-04-09] MEDS ORDERED: MAGNESIUM SULFATE-D5W PMX 1 GM in DEXTROSE/WATER 1 100ML.BAG IVPB ONE (12:43)
[2023-04-09] MEDS ORDERED: POTASSIUM CHLORIDE ER 20 MEQ TAB.ER PO STA (12:44)
--- NOTE | 2023-04-09 12:45 | P.PN ---
Subjective Progress Note Date: 04/09/23 CHIEF COMPLAINT: Abdominal pain HISTORY OF PRESENT ILLNESS: Patient reports that she is feeling better today. Her right lower quadrant pain is decreasing. She is having a lot of flatus. She did have a small BM that was mostly watery. Did have nausea earlier that has improved. No vomiting. She did tolerate regular diet. Afebrile. WBC 3.83 Hgb 9.8 potassium is better from 2.8-3.3 magnesium 1.6 PHYSICAL EXAM: VITAL SIGNS: Reviewed GENERAL: Well-developed in no acute distress. HEENT: No sclera icterus. Extraocular movements grossly intact. Moist buccal mucosa. Head is atraumatic, normocephalic. Hears conversational speech. No nasal drainage. NECK: Supple without lymphadenopathy. CHEST: Non-labored respirations and equal bilateral excursions. CARDIOVASCULAR: Palpable 2+ radial pulses. ABDOMEN: Soft. Nondistended. Tenderness to palpation of the right side of the abdomen. MUSCULOSKELETAL: No clubbing or cyanosis. NEUROLOGIC: No focal or lateralizing signs. Cranial nerves II through XII grossly intact. PSYCH: Appropriate affect. Alert and oriented to person, place and time. SKIN: Well perfused. Good skin turgor. ASSESSMENT: 1. Right-sided abdominal pain 2. Gastroenteritis 3. Ileus 4. Metastatic breast cancer 5. Diarrhea possibly secondary to Piqray noted per oncology service 6. History of ulcerative colitis 7. Hypokalemia PLAN: -Replace magnesium and potassium -Continue regular diet -Encourage patient to ambulate -Continue pain management -Piqray currently on hold Physician Gin Pole Operator note has been reviewed by physician. Signing provider agrees with the documented findings, assessment, and plan of care. Objective - Vital Signs Vital signs: Vital Signs Temp 98.5 F 04/09/23 07:00 Pulse 78 04/09/23 07:00 Resp 16 04/09/23 07:00 BP 131/71 04/09/23 07:00 Pulse Ox 98 04/09/23 07:00 FiO2 Intake & Output 04/08/23 04/09/23 04/09/23 18:59 06:59 18:59 Intake Total 118 236 Output Total 1000 Balance -882 236 Weight 58.74 kg Intake: Oral 118 236 Output: Urine 1000 Other: Voiding Method Indwelling Catheter Toilet Toilet Bedside Commode Bedside Commode # Voids 2 2 - Labs CBC & Chem 7: 04/09/23 06:20 04/09/23 06:20 Labs: Abnormal Lab Results - Last 24 Hours (Table) 04/09/23 Range/Units 06:20 Sodium 147 H (135-145) mmol/L Potassium 3.3 L (3.5-5.5) mmol/L Chloride 115 H (96-109) mmol/L BUN 4.2 L (9.0-27.0) mg/dL BUN/Creatinine Ratio 6.00 L (12.00-20.00) Ratio Calcium 7.5 L (8.7-10.3) mg/dL
--- NOTE | 2023-04-09 12:49 | P.PN ---
Subjective Progress Note Date: 04/09/23 Patient is a 67-year-old with metastatic breast cancer to lungs and bones and GERD who presented to the hospital with complaints of right lower quadrant pain. In the ER she underwent an extensive evaluation. On arrival she was hypertensive with a blood pressure of 184/85. Laboratory analysis was remarkable for lactic acid of 4.3. CT abdomen and pelvis demonstrated gastroenteritis versus ileus. She was admitted with surgery and oncology consulted. She was noted to have urinary retention on bladder US and menendez was inserted. Menendez now discontinued. Now having bowel movements. Able to tolerate oral intake. Patient seen and examined at bedside. No acute events overnight. Had bowel movement yesterday. She denies any nausea. No other complaints currently. Vital signs reviewed General: nontoxic, no distress, appears at stated age, gaunt with temporal wasting Cardiovascular: S1S2 reg, no murmur, positive posterior tibial pulse bilateral, Lungs: CTA bilateral, no rhonchi, no rales , no accessory muscle use Abdominal: soft, + TTP RUQ and RLQ, no guarding, no appreciable organomegaly Ext: no gross muscle atrophy, no edema b/l lower extremities, no contractures Neuro: CN II-XI grossly intact, no focal neuro deficits Psych: Alert, oriented, appropriate affect Assessment/Plan: Colonic distension Breast cancer with metastasis to lung and bone -Surgery following, on a scheduled simethicone, started on regular diet -Oncology following, hold piqray - Continue pain control with Toradol 50 mg IV push every 6 hours as needed, oxycodone 10 mg by mouth every 4 hours as needed, tramadol 100mg 3 times a day as needed - Protonix 40 mg daily - Normal saline 100 mL/h Urinary retention, resolved Hypokalemia -40 mEq oral potassium given today Hypomagnesemia -1 g IV magnesium sulfate given Hypernatremia, encourage oral intake -Repeat BMP tomorrow Tension headache -Topical diclofenac gel Bicytopenia -Repeat CBC tomorrow -Hematology following Chronic: GERD Prior DVT Imaging: No new imaging today Data Review: WBC 3.83, hemoglobin 9.8, sodium 147, potassium 3.3, magnesium 1.6 DVT prophylaxis: Lovenox Anticipated discharge date: Pending Clinical Course Anticipated discharge place: Pending Clinical Course Objective - Vital Signs Vital signs: Vital Signs Temp 98.5 F 04/09/23 07:00 Pulse 78 04/09/23 07:00 Resp 16 04/09/23 07:00 BP 131/71 04/09/23 07:00 Pulse Ox 98 04/09/23 07:00 FiO2 Intake & Output 04/08/23 04/09/23 04/09/23 18:59 06:59 18:59 Intake Total 118 236 Output Total 1000 Balance -882 236 Weight 58.74 kg Intake: Oral 118 236 Output: Urine 1000 Other: Voiding Method Indwelling Catheter Toilet Toilet Bedside Commode Bedside Commode # Voids 2 2 - Labs CBC & Chem 7: 04/09/23 06:20 04/09/23 06:20 Labs: Abnormal Lab Results - Last 24 Hours (Table) 04/09/23 04/09/23 Range/Units 06:20 06:20 WBC 3.83 L (4.50-10.00) X 10*3/uL RBC 3.69 L (4.10-5.20) X 10*6/uL Hgb 9.8 L (12.0-15.0) d/dL Hct 32.8 L (37.2-46.3) % MCH 26.6 L (27.0-32.0) pg MCHC 29.9 L (32.0-37.0) d/dL RDW 14.6 H (11.5-14.5) % Lymphocytes # 0.71 L (0.90-5.00) X 10*3/uL Sodium 147 H (135-145) mmol/L Potassium 3.3 L (3.5-5.5) mmol/L Chloride 115 H (96-109) mmol/L BUN 4.2 L (9.0-27.0) mg/dL BUN/Creatinine Ratio 6.00 L (12.00-20.00) Ratio Calcium 7.5 L (8.7-10.3) mg/dL
[2023-04-09] MEDS: DICLOFENAC SODIUM GEL 100 GM TUBE TOPICAL SCH ×3 (13:40→21:08)
--- NOTE | 2023-04-09 20:24 | P.PN ---
Subjective Progress Note Date: 04/09/23 Principal diagnosis: abdominal pain At today's visit patient is resting comfortably in bed. Patient reports improvement in abdominal pain since admission but is having persisting intermittent right lower quadrant abdominal pain when eating. She has been started on regular diet and reports improvement in oral intake today. Reports 1 small loose stool last night. Also reporting intermittent nausea but denies vomiting. Improvement with Zofran. She has been transitioned to oral pain meds, but reports she doesn't feel like oxycontin works as well as her tramadol she takes at home Objective - Vital Signs Vital signs: Vital Signs Temp 98.0 F 04/09/23 14:09 Pulse 80 04/09/23 14:09 Resp 14 04/09/23 14:09 BP 139/64 04/09/23 14:09 Pulse Ox 98 04/09/23 14:09 FiO2 Intake & Output 04/09/23 04/09/23 04/10/23 06:59 18:59 06:59 Intake Total 1056 Balance 1056 Intake: Oral 1056 Other: Voiding Method Toilet Toilet Bedside Commode Bedside Commode # Voids 2 2 - Constitutional General appearance: Present: average body habitus, no acute distress - EENT Eyes: Present: anicteric sclerae, EOMI ENT: Present: hearing grossly normal - Respiratory Details: breathing is even and unlabored - Cardiovascular Details: skin warm and dry - Gastrointestinal General gastrointestinal: Present: soft, tenderness. Absent: distended Localized gastrointestinal: tender: RLQ - Integumentary Integumentary: Absent: cyanotic, jaundiced - Neurologic Neurologic Comment(s): grossly intact - Musculoskeletal Musculoskeletal: Present: strength equal bilaterally - Psychiatric Psychiatric: Present: A&O x's 3, appropriate affect, intact judgment & insight - Labs CBC & Chem 7: 04/09/23 06:20 04/09/23 06:20 Labs: Abnormal Lab Results - Last 24 Hours (Table) 04/09/23 04/09/23 Range/Units 06:20 06:20 WBC 3.83 L (4.50-10.00) X 10*3/uL RBC 3.69 L (4.10-5.20) X 10*6/uL Hgb 9.8 L (12.0-15.0) d/dL Hct 32.8 L (37.2-46.3) % MCH 26.6 L (27.0-32.0) pg MCHC 29.9 L (32.0-37.0) d/dL RDW 14.6 H (11.5-14.5) % Lymphocytes # 0.71 L (0.90-5.00) X 10*3/uL Sodium 147 H (135-145) mmol/L Potassium 3.3 L (3.5-5.5) mmol/L Chloride 115 H (96-109) mmol/L BUN 4.2 L (9.0-27.0) mg/dL BUN/Creatinine Ratio 6.00 L (12.00-20.00) Ratio Calcium 7.5 L (8.7-10.3) mg/dL Assessment and Plan (1) Intractable abdominal pain Current Visit: Yes Status: Acute Priority: High Code(s): R10.9 - UNSPECIFIED ABDOMINAL PAIN SNOMED Code(s): 60201459 (2) Breast cancer metastasized to bone Current Visit: Yes Status: Chronic Priority: High Code(s): C50.919 - MALIGNANT NEOPLASM OF UNSP SITE OF UNSPECIFIED FEMALE BREAST; C79.51 - SECONDARY MALIGNANT NEOPLASM OF BONE SNOMED Code(s): 76182049 Plan: #Abdominal pain -CT abdomen/pelvis on admission notes multiple loops of colon with air-fluid levels without wall thickening consistent with ileus versus gastroenteritis. Abdominal x-ray revealed overall nonobstructive bowel gas pattern -Labs including amylase and lipase are within normal limits -C diff negative. Stool culture ordered -Tenderness on exam in the right lower quadrant, improved since admission. Oral intake improving -This could be secondary to Piqray, which she last took on the morning of 04/06/2023 -Recommend holding Piqray at this time -IV pain meds converted to oral pain med regimen. OxyContin IR 10 mg q4hrs prn ordered. Patient is reporting she feels like she has better pain control on tramadol which she takes at home. Tramadol prn added. Will continue to monitor and make adjustments as needed so patient can be discharged on adequate pain med regimen #Metastatic breast cancer -Currently on Piqray and Faslodex -She has not been able to tolerate full dose Piqray due to persistent diarrhea -If abdominal pain is in fact from Piqray, she was on the lowest dose recommended at 200 mg daily -She has clinic visit on 04/19/2023 to review whether this should be continued or not
[2023-04-09] MEDS: AMITRIPTYLINE HCL 10 MG TAB PO SCH (20:32)
[2023-04-09] MEDS: CALCIUM CARBONATE 500 MG CHEWABLE PO SCH (20:32)
[2023-04-09] MEDS: ALPRAZolam 0.25 MG TAB PO PRN (20:33)
[2023-04-10 09:11] LABS: Blood Urea Nitrogen 4.5 mg/dL (9.0-27.0); Calcium 7.7 mg/dL (8.7-10.3); Carbon Dioxide 23.8 mmol/L (21.6-31.8); Chloride 112 mmol/L (96-109); Glucose 81 mg/dL (70-110); Magnesium 1.9 mg/dL (1.5-2.4); Potassium 3.5 mmol/L (3.5-5.5); Sodium 143 mmol/L (135-145)
[2023-04-10 09:13] LABS: Basophils # (A) 0.01 X 10*3/uL (0.00-0.10); Basophils % (A) 0.2 %; Eosinophils # (A) 0.26 X 10*3/uL (0.04-0.35); Eosinophils % (A) 6.1 %; HCT 32.7 % (37.2-46.3); HGB 10.1 d/dL (12.0-15.0); Lymphocytes # (A) 0.64 X 10*3/uL (0.90-5.00); Lymphocytes % (A) 14.9 %; MCH 27.4 pg (27.0-32.0); MCHC 30.9 d/dL (32.0-37.0); MCV 88.6 FL (80.0-97.0); Monocytes # (A) 0.48 X 10*3/uL (0.20-1.00); Monocytes % (A) 11.2 %; NRBC Per 100 WBC 0 X 10*3/uL (0.00-0.01); Neutrophils # (A) 2.89 X 10*3/uL (1.80-7.70); Neutrophils % (A) 67.4 %; Platelet Count 174 X 10*3/uL (140-440); RBC 3.69 X 10*6/uL (4.10-5.20); RDW 14.8 % (11.5-14.5); WBC 4.29 X 10*3/uL (4.50-10.00)
[2023-04-10] MEDS: ENOXAPARIN 40 MG/0.4 ML SYRINGE SQ SCH (09:24)
[2023-04-10] MEDS: SODIUM CHLORIDE 0.9% 1,000 ML IV SCH (09:24)
[2023-04-10] MEDS: MULTIVITAMINS, THERA 1 EACH TAB PO SCH (09:24)
[2023-04-10] MEDS: PANTOPRAZOLE 40 MG TABLET PO SCH (09:24)
[2023-04-10] MEDS: ALPRAZolam 0.25 MG TAB PO SCH (09:24)
[2023-04-10] MEDS: DICLOFENAC SODIUM GEL 100 GM TUBE TOPICAL SCH ×4 (09:25→21:12)
[2023-04-10] MEDS: SIMETHICONE 40 MG/0.6 ML DROPS 2,000 MG/30 ML BOTTLE PO SCH ×4 (09:25→21:13)
--- NOTE | 2023-04-10 12:37 | P.PN ---
Subjective Progress Note Date: 04/10/23 CHIEF COMPLAINT: Abdominal pain HISTORY OF PRESENT ILLNESS: Patient is up and ambulating in hallway. Her right lower quadrant abdominal pain is doing better today. She denies any nausea or vomiting. She is tolerating diet. She did have a bowel movement. Afebrile. WBC 4.29 potassium 3.5 and magnesium 1.9 PHYSICAL EXAM: VITAL SIGNS: Reviewed GENERAL: Well-developed in no acute distress. HEENT: No sclera icterus. Extraocular movements grossly intact. Moist buccal mucosa. Head is atraumatic, normocephalic. Hears conversational speech. No nasal drainage. NECK: Supple without lymphadenopathy. CHEST: Non-labored respirations and equal bilateral excursions. CARDIOVASCULAR: Palpable 2+ radial pulses. ABDOMEN: Soft. Nondistended. Mild tenderness to palpation right lower abdomen MUSCULOSKELETAL: No clubbing or cyanosis. NEUROLOGIC: No focal or lateralizing signs. Cranial nerves II through XII grossly intact. PSYCH: Appropriate affect. Alert and oriented to person, place and time. SKIN: Well perfused. Good skin turgor. ASSESSMENT: 1. Right-sided abdominal pain 2. Gastroenteritis 3. Ileus 4. Metastatic breast cancer 5. Diarrhea possibly secondary to Piqray noted per oncology service 6. History of ulcerative colitis 7. Hypokalemia PLAN: -Patient can be discharged from surgical standpoint when medically cleared -Continue regular diet -Encourage patient to ambulate -Continue pain management -Piqray currently on hold Physician Fabrication Mig Welder note has been reviewed by physician. Signing provider agrees with the documented findings, assessment, and plan of care. Objective - Vital Signs Vital signs: Vital Signs Temp 98.9 F 04/10/23 07:00 Pulse 79 04/10/23 07:00 Resp 17 04/10/23 07:00 BP 126/72 04/10/23 07:00 Pulse Ox 93 L 04/10/23 07:00 FiO2 Intake & Output 04/09/23 04/10/23 04/10/23 18:59 06:59 18:59 Intake Total 1056 118 Balance 1056 118 Intake: Oral 1056 118 Other: Voiding Method Toilet Toilet Toilet Bedside Commode Bedside Commode Bedside Commode # Voids 2 1 # Bowel Movements 2 - Labs CBC & Chem 7: 04/10/23 06:05 04/10/23 06:05 Labs: Abnormal Lab Results - Last 24 Hours (Table) 04/10/23 04/10/23 Range/Units 06:05 06:05 WBC 4.29 L (4.50-10.00) X 10*3/uL RBC 3.69 L (4.10-5.20) X 10*6/uL Hgb 10.1 L (12.0-15.0) d/dL Hct 32.7 L (37.2-46.3) % MCHC 30.9 L (32.0-37.0) d/dL RDW 14.8 H (11.5-14.5) % Lymphocytes # 0.64 L (0.90-5.00) X 10*3/uL Chloride 112 H (96-109) mmol/L BUN 4.5 L (9.0-27.0) mg/dL BUN/Creatinine Ratio 7.50 L (12.00-20.00) Ratio Calcium 7.7 L (8.7-10.3) mg/dL
--- NOTE | 2023-04-10 12:53 | P.PN ---
Subjective Progress Note Date: 04/10/23 Patient is a 67-year-old with metastatic breast cancer to lungs and bones and GERD who presented to the hospital with complaints of right lower quadrant pain. In the ER she underwent an extensive evaluation. On arrival she was hypertensive with a blood pressure of 184/85. Laboratory analysis was remarkable for lactic acid of 4.3. CT abdomen and pelvis demonstrated gastroenteritis versus ileus. She was admitted with surgery and oncology consulted. She was noted to have urinary retention on bladder US and menendez was inserted. Menendez now discontinued. Now having bowel movements. Able to tolerate oral intake. Patient seen and examined at bedside. No acute events overnight. Had bowel movement yesterday. She denies any nausea. No other complaints currently. Vital signs reviewed General: nontoxic, no distress, appears at stated age, gaunt with temporal wasting Cardiovascular: S1S2 reg, no murmur, positive posterior tibial pulse bilateral, Lungs: CTA bilateral, no rhonchi, no rales , no accessory muscle use Abdominal: soft, + TTP RLQ, no guarding, no appreciable organomegaly Ext: no gross muscle atrophy, no edema b/l lower extremities, no contractures Neuro: CN II-XI grossly intact, no focal neuro deficits Psych: Alert, oriented, appropriate affect Assessment/Plan: Colonic distension Breast cancer with metastasis to lung and bone -Surgery note reviewed, continue current therapy, can be discharged from their standpoint -Oncology following, hold piqray, planning to observe patient for 1 overnight - Continue pain control with oxycodone 10 mg by mouth every 4 hours as needed, tramadol 100mg 3 times a day as needed - Protonix 40 mg daily -Fluids discontinued Urinary retention, resolved Hypokalemia, resolved Hypomagnesemia, resolved Hypernatremia, encourage oral intake, resolved Tension headache -Topical diclofenac gel Bicytopenia, improving -Repeat CBC tomorrow -Hematology following Chronic: GERD Prior DVT Imaging: No new imaging today Data Review: WBC 4.9, hemoglobin 10.1, potassium 3.5, magnesium 1.9, creatinine 0.6 DVT prophylaxis: Lovenox Anticipated discharge date: Tomorrow Anticipated discharge place: Home Objective - Vital Signs Vital signs: Vital Signs Temp 98.9 F 04/10/23 07:00 Pulse 79 04/10/23 07:00 Resp 17 04/10/23 07:00 BP 126/72 04/10/23 07:00 Pulse Ox 93 L 04/10/23 07:00 FiO2 Intake & Output 04/09/23 04/10/23 04/10/23 18:59 06:59 18:59 Intake Total 1056 118 Balance 1056 118 Intake: Oral 1056 118 Other: Voiding Method Toilet Toilet Toilet Bedside Commode Bedside Commode Bedside Commode # Voids 2 1 # Bowel Movements 2 - Labs CBC & Chem 7: 04/10/23 06:05 04/10/23 06:05 Labs: Abnormal Lab Results - Last 24 Hours (Table) 04/10/23 04/10/23 Range/Units 06:05 06:05 WBC 4.29 L (4.50-10.00) X 10*3/uL RBC 3.69 L (4.10-5.20) X 10*6/uL Hgb 10.1 L (12.0-15.0) d/dL Hct 32.7 L (37.2-46.3) % MCHC 30.9 L (32.0-37.0) d/dL RDW 14.8 H (11.5-14.5) % Lymphocytes # 0.64 L (0.90-5.00) X 10*3/uL Chloride 112 H (96-109) mmol/L BUN 4.5 L (9.0-27.0) mg/dL BUN/Creatinine Ratio 7.50 L (12.00-20.00) Ratio Calcium 7.7 L (8.7-10.3) mg/dL
--- NOTE | 2023-04-10 12:58 | P.PN ---
Subjective Progress Note Date: 04/10/23 Principal diagnosis: abdominal pain At today's visit patient is resting comfortably in bed. Patient reports improvement in abdominal pain since admission but is having persisting intermittent right lower quadrant abdominal pain when eating. She has been started on regular diet and reports improvement in oral intake today. Reports 2 loose BMs last night. Also reporting intermittent nausea but denies vomiting. Improvement with Zofran. She has been transitioned to oral pain meds, and is reporting good pain control Objective - Vital Signs Vital signs: Vital Signs Temp 98.9 F 04/10/23 07:00 Pulse 79 04/10/23 07:00 Resp 17 04/10/23 07:00 BP 126/72 04/10/23 07:00 Pulse Ox 93 L 04/10/23 07:00 FiO2 Intake & Output 04/09/23 04/10/23 04/10/23 18:59 06:59 18:59 Intake Total 1056 118 Balance 1056 118 Intake: Oral 1056 118 Other: Voiding Method Toilet Toilet Toilet Bedside Commode Bedside Commode Bedside Commode # Voids 2 1 # Bowel Movements 2 - Constitutional General appearance: Present: average body habitus, no acute distress - EENT Eyes: Present: anicteric sclerae, EOMI ENT: Present: hearing grossly normal - Respiratory Details: breathing is even and unlabored - Cardiovascular Details: skin warm and dry - Gastrointestinal General gastrointestinal: Present: tenderness Localized gastrointestinal: tender: RLQ - Integumentary Integumentary: Absent: cyanotic, jaundiced - Neurologic Neurologic Comment(s): grossly intact - Musculoskeletal Musculoskeletal: Present: strength equal bilaterally - Psychiatric Psychiatric: Present: A&O x's 3, appropriate affect, intact judgment & insight - Labs CBC & Chem 7: 04/10/23 06:05 04/10/23 06:05 Labs: Abnormal Lab Results - Last 24 Hours (Table) 04/10/23 04/10/23 Range/Units 06:05 06:05 WBC 4.29 L (4.50-10.00) X 10*3/uL RBC 3.69 L (4.10-5.20) X 10*6/uL Hgb 10.1 L (12.0-15.0) d/dL Hct 32.7 L (37.2-46.3) % MCHC 30.9 L (32.0-37.0) d/dL RDW 14.8 H (11.5-14.5) % Lymphocytes # 0.64 L (0.90-5.00) X 10*3/uL Chloride 112 H (96-109) mmol/L BUN 4.5 L (9.0-27.0) mg/dL BUN/Creatinine Ratio 7.50 L (12.00-20.00) Ratio Calcium 7.7 L (8.7-10.3) mg/dL Assessment and Plan (1) Intractable abdominal pain Current Visit: Yes Status: Acute Priority: High Code(s): R10.9 - UNSPECIFIED ABDOMINAL PAIN SNOMED Code(s): 85931518 (2) Breast cancer metastasized to bone Current Visit: Yes Status: Chronic Priority: High Code(s): C50.919 - MALIGNANT NEOPLASM OF UNSP SITE OF UNSPECIFIED FEMALE BREAST; C79.51 - SECONDARY MALIGNANT NEOPLASM OF BONE SNOMED Code(s): 39391921 Plan: #Abdominal pain -CT abdomen/pelvis on admission notes multiple loops of colon with air-fluid levels without wall thickening consistent with ileus versus gastroenteritis. Abdominal x-ray revealed overall nonobstructive bowel gas pattern -Labs including amylase and lipase are within normal limits -C diff negative. Stool culture ordered -Tenderness on exam in the right lower quadrant, improved since admission. Oral intake improving -This could be secondary to Piqray, which she last took on the morning of 04/06/2023 -Recommend holding Piqray at this time -IV pain meds converted to oral pain med regimen. OxyContin IR 10 mg q4hrs prn ordered. Patient reported she feels like she has better pain control on tramadol which she takes at home. Tramadol prn added. Will continue to monitor and make adjustments as needed so patient can be discharged on adequate pain med regimen. At todays visit patient is reporting good pain control on current regimen -Encouraged increasing oral intake and activity as tolerated. Will reevaluate in the am with plan for discharge if patient continues to do well #Metastatic breast cancer -Currently on Piqray and Faslodex -She has not been able to tolerate full dose Piqray due to persistent diarrhea -If abdominal pain is in fact from Piqray, she was on the lowest dose recommended at 200 mg daily -She has clinic visit on 04/19/2023 to review whether this should be continued or not
[2023-04-10] MEDS: CALCIUM CARBONATE 500 MG CHEWABLE PO SCH (21:12)
[2023-04-10] MEDS: ZOLPIDEM 5 MG TAB PO PRN (21:12)
[2023-04-10] MEDS: AMITRIPTYLINE HCL 10 MG TAB PO SCH (21:12)
[2023-04-10] MEDS: ALPRAZolam 0.25 MG TAB PO PRN (21:12)
[2023-04-11 03:06] VITALS: RESP 16; TEMP 98.2
[2023-04-11] MEDS: PANTOPRAZOLE 40 MG TABLET PO SCH (05:35)
[2023-04-11 08:04] VITALS: BP 107/67; PULSE 74
[2023-04-11] MEDS: MULTIVITAMINS, THERA 1 EACH TAB PO SCH (08:10)
[2023-04-11] MEDS: ENOXAPARIN 40 MG/0.4 ML SYRINGE SQ SCH (08:10)
[2023-04-11] MEDS: ALPRAZolam 0.25 MG TAB PO SCH (08:10)
[2023-04-11] MEDS: DICLOFENAC SODIUM GEL 100 GM TUBE TOPICAL SCH (08:11)
[2023-04-11] MEDS: SIMETHICONE 40 MG/0.6 ML DROPS 2,000 MG/30 ML BOTTLE PO SCH (08:12)
[2023-04-11 09:07] LABS: Appearance,Urine Clear (Clear); Bilirubin,Urine Negative (Negative); Blood,Urine Negative (Negative); Color,Urine Colorless; Glucose,Urine (UA) Negative (Negative); Ketones,Urine Negative (Negative); Leukocyte Esterase,Urine Negative (Negative); Nitrite,Urine Negative (Negative); PH, Urine 5.5 (5.0-8.0); Protein,Urine Negative (Negative); Specific Gravity,Urine 1.009 (1.001-1.035); Urobilinogen,Urine <2.0 mg/dL (<2.0)
[2023-04-11] MEDS ORDERED: DOCUSATE 100 MG CAP PO SCH (12:00)
--- NOTE | 2023-04-11 13:48 | P.PN ---
Subjective Progress Note Date: 04/11/23 CHIEF COMPLAINT: Abdominal pain HISTORY OF PRESENT ILLNESS: Patient reports she's feeling better today. She was able to shower. She is tolerating regular diet. I'm she does have the tenderness and right lower quadrant but it is much better than what brought her into the hospital. She is having flatus. No bowel movement today. Afebrile. She is planning on being discharged today. PHYSICAL EXAM: VITAL SIGNS: Reviewed GENERAL: Well-developed in no acute distress. HEENT: No sclera icterus. Extraocular movements grossly intact. Moist buccal mucosa. Head is atraumatic, normocephalic. Hears conversational speech. No nasal drainage. NECK: Supple without lymphadenopathy. CHEST: Non-labored respirations and equal bilateral excursions. CARDIOVASCULAR: Palpable 2+ radial pulses. ABDOMEN: Soft. Nondistended. Mild tenderness to palpation right lower abdomen MUSCULOSKELETAL: No clubbing or cyanosis. NEUROLOGIC: No focal or lateralizing signs. Cranial nerves II through XII grossly intact. PSYCH: Appropriate affect. Alert and oriented to person, place and time. SKIN: Well perfused. Good skin turgor. ASSESSMENT: 1. Right-sided abdominal pain 2. Gastroenteritis 3. Ileus 4. Metastatic breast cancer 5. Diarrhea possibly secondary to Piqray noted per oncology service 6. History of ulcerative colitis 7. Hypokalemia PLAN: -Patient can be discharged from surgical standpoint when medically cleared -Continue regular diet -Encourage patient to ambulate -Continue pain management -Piqray to continue or not per oncology service Physician Garage Supervisor note has been reviewed by physician. Signing provider agrees with the documented findings, assessment, and plan of care. Objective - Vital Signs Vital signs: Vital Signs Temp 98.2 F 04/11/23 07:48 Pulse 74 04/11/23 08:00 Resp 16 04/11/23 08:00 BP 107/67 04/11/23 07:48 Pulse Ox 93 L 04/11/23 07:48 FiO2 Intake & Output 04/10/23 04/11/23 04/11/23 18:59 06:59 18:59 Intake Total 827 240 Balance 827 240 Intake: Oral 827 240 Other: Voiding Method Toilet Toilet Toilet Bedside Commode # Voids 3 0 - Labs CBC & Chem 7: 04/10/23 06:05 04/10/23 06:05
--- NOTE | 2023-04-11 15:17 | P.DS ---
Providers Date of admission: 04/07/23 00:52 Expected date of discharge: 04/11/23 Attending physician: Lukasz Monroe MD Consults: 04/07/23 00:52 Consult Physician Routine Consulting Provider: Ruddy Chen Consult Reason/Comments: your physician Do you want consulting provider notified?: Yes 04/08/23 12:42 Consult Physician Routine Consulting Provider: Candido Rizvi Consult Reason/Comments: abdominal pain Do you want consulting provider notified?: Already Contacted Primary care physician: Ruddy Chen Hospital Course: Discharge Diagnosis: Colonic distension Breast cancer with metastasis to lung and bone Acute urinary retention Hypokalemia Hypomagnesemia Hypernatremia Tension headache Bicytopenia, improving Hospital Course: Patient is a 67-year-old with metastatic breast cancer to lungs and bones and GERD who presented to the hospital with complaints of right lower quadrant pain. In the ER she underwent an extensive evaluation. On arrival she was hyp ertensive with a blood pressure of 184/85. Laboratory analysis was remarkable for lactic acid of 4.3. CT abdomen and pelvis demonstrated gastroenteritis versus ileus. She was admitted with surgery and oncology consulted. She was noted to have urinary retention on bladder US and menendez was inserted. Menendez now discontinued. Now having bowel movements. Able to tolerate oral intake. Patient being discharged home with close follow-up with oncology. Patient seen and examined at bedside. Vital signs reviewed and stable. General: nontoxic, no distress, appears at stated age, gaunt with temporal wasting Cardiovascular: S1S2 reg, no murmur, positive posterior tibial pulse bilateral, Lungs: CTA bilateral, no rhonchi, no rales , no accessory muscle use Abdominal: soft, non-TTP RLQ, no guarding, no appreciable organomegaly Ext: no gross muscle atrophy, no edema b/l lower extremities, no contractures Neuro: CN II-XI grossly intact, no focal neuro deficits Psych: Alert, oriented, appropriate affect A total of 33 minutes of time were spent preparing this complex discharge summary. Patient was discharged on 04/11/23 at 12:58. Patient Condition at Discharge: Stable Plan - Discharge Summary Discharge Rx Participant: Yes New Discharge Prescriptions: New oxyCODONE HCL [OxyIR] 10 mg PO Q4HR PRN #14 tab PRN Reason: Pain traMADol HCl [Ultram] 100 mg PO TID PRN #10 tab PRN Reason: Pain Continue Zoledronic Acid [Zometa] 1 dose IVPB Q30D ALPRAZolam [Xanax] 0.25 mg PO BID PRN PRN Reason: Anxiety Zolpidem [Ambien] 5 mg PO HS Loperamide [Imodium] 2 mg PO QID PRN PRN Reason: Diarrhea Budesonide [Entocort EC] 3 mg PO PC-BID Collagen Gummy (Unknown Strength) 1 cap PO DAILY Fulvestrant 1 dose IV Q30D Promethazine Suppository [Phenergan] 12.5 mg RECTAL Q6H PRN PRN Reason: Nausea Calcium Carbonate [Tums] 500 mg PO HS@2100 Ibuprofen/Acetaminophen [Advil Dual Action 125MG(IBU)-250MG(ACET)] 1 tab PO BID PRN PRN Reason: Pain Vitamin B Complex Gummy 1 cap PO DAILY Nystatin 100,000 Unit/ml Susp [Mycostatin Oral Susp] 5 ml PO QID PRN PRN Reason: Mouth ulcers from piqray Promethazine [Phenergan] 25 mg PO Q6HR PRN PRN Reason: Nausea Diphenoxylate HCl/Atropine [Lomotil 2.5-0.025 mg Tablet] 1 tab PO TID PRN PRN Reason: Diarrhea Multivitamin [Multivitamins Adult Gummies] 1 tab PO DAILY Amitriptyline HCl [Elavil] 20 mg PO HS@2100 ALPRAZolam [Xanax] 0.25 mg PO DAILY Vitamin C 1,000mg Gummy 2,000 mg PO DAILY Vitamin D3 50mcg Gummies 100 mcg PO DAILY Discontinued traMADol HCL 50 mg PO TID PRN PRN Reason: Pain Alpelisib [Piqray] 250 mg PO DIRECTED Alpelisib [Piqray] 200 mg PO DAILY@0730 Discharge Medication List ALPRAZolam [Xanax] 0.25 mg PO BID PRN 11/27/21 [History] Nystatin 100,000 Unit/ml Susp [Mycostatin Oral Susp] 5 ml PO QID PRN 11/27/21 [History] Zoledronic Acid [Zometa] 1 dose IVPB Q30D 11/27/21 [History] Zolpidem [Ambien] 5 mg PO HS 06/23/22 [History] ALPRAZolam [Xanax] 0.25 mg PO DAILY 04/07/23 [History] Amitriptyline HCl [Elavil] 20 mg PO HS@2100 04/07/23 [History] Budesonide [Entocort EC] 3 mg PO PC-BID 04/07/23 [History] Calcium Carbonate [Tums] 500 mg PO HS@2100 04/07/23 [History] Collagen Gummy (Unknown Strength) 1 cap PO DAILY 04/07/23 [History] Diphenoxylate HCl/Atropine [Lomotil 2.5-0.025 mg Tablet] 1 tab PO TID PRN 04/07/23 [History] Fulvestrant 1 dose IV Q30D 04/07/23 [History] Ibuprofen/Acetaminophen [Advil Dual Action 125MG(IBU)-250MG(ACET)] 1 tab PO BID PRN 04/07/23 [History] Loperamide [Imodium] 2 mg PO QID PRN 04/07/23 [History] Multivitamin [Multivitamins Adult Gummies] 1 tab PO DAILY 04/07/23 [History] Promethazine Suppository [Phenergan] 12.5 mg RECTAL Q6H PRN 04/07/23 [History] Promethazine [Phenergan] 25 mg PO Q6HR PRN 04/07/23 [History] Vitamin B Complex Gummy 1 cap PO DAILY 04/07/23 [History] Vitamin C 1,000mg Gummy 2,000 mg PO DAILY 04/07/23 [History] Vitamin D3 50mcg Gummies 100 mcg PO DAILY 04/07/23 [History] oxyCODONE HCL [OxyIR] 10 mg PO Q4HR PRN #14 tab 04/11/23 [Rx] traMADol HCl [Ultram] 100 mg PO TID PRN #10 tab 04/11/23 [Rx] Follow up Appointment(s)/Referral(s): Ruddy Chen [Primary Care Provider] - 04/19/23 8:30 am None,Stated [REFERRING] - 1-2 days Patient Instructions/Handouts: Abdominal Pain (ED) Activity/Diet/Wound Care/Special Instructions: Please see oncology. Discharge Disposition: HOME SELF-CARE
--- NOTE | 2023-04-11 16:24 | P.PN ---
Subjective Progress Note Date: 04/11/23 Principal diagnosis: abdominal pain At today's visit patient is resting comfortably in bed. Patient reports continued improvement in abdominal pain since admission. She is tolerating regular diet well. Reports she hasn't had a BM in 2 days. Nausea improved, denies vomiting. She has been transitioned to oral pain meds, and is reporting good pain control Objective - Vital Signs Vital signs: Vital Signs Temp 98.2 F 04/11/23 07:48 Pulse 74 04/11/23 08:00 Resp 16 04/11/23 08:00 BP 107/67 04/11/23 07:48 Pulse Ox 93 L 04/11/23 07:48 FiO2 Intake & Output 04/10/23 04/11/23 04/11/23 18:59 06:59 18:59 Intake Total 827 240 Balance 827 240 Intake: Oral 827 240 Other: Voiding Method Toilet Toilet Toilet Bedside Commode # Voids 3 0 - Constitutional General appearance: Present: average body habitus, no acute distress - EENT Eyes: Present: anicteric sclerae, EOMI ENT: Present: hearing grossly normal - Respiratory Details: breathing is even and unlabored - Cardiovascular Details: skin warm and dry - Gastrointestinal General gastrointestinal: Present: soft, tenderness Localized gastrointestinal: tender: RLQ - Integumentary Integumentary: Absent: cyanotic - Neurologic Neurologic: Present: CNII-XII intact - Musculoskeletal Musculoskeletal: Present: strength equal bilaterally - Psychiatric Psychiatric: Present: A&O x's 3, appropriate affect, intact judgment & insight - Labs CBC & Chem 7: 04/10/23 06:05 04/10/23 06:05 Assessment and Plan (1) Intractable abdominal pain Status: Acute Priority: High Code(s): R10.9 - UNSPECIFIED ABDOMINAL PAIN SNOMED Code(s): 29848833 (2) Breast cancer metastasized to bone Status: Chronic Priority: High Code(s): C50.919 - MALIGNANT NEOPLASM OF UNSP SITE OF UNSPECIFIED FEMALE BREAST; C79.51 - SECONDARY MALIGNANT NEOPLASM OF BONE SNOMED Code(s): 68572658 Plan: #Abdominal pain -CT abdomen/pelvis on admission notes multiple loops of colon with air-fluid le vels without wall thickening consistent with ileus versus gastroenteritis. Abdominal x-ray revealed overall nonobstructive bowel gas pattern -Labs including amylase and lipase are within normal limits -C diff negative. Stool culture ordered -Tenderness on exam in the right lower quadrant, improved since admission. Oral intake improving -This could be secondary to Piqray, which she last took on the morning of 04/06/2023 -Recommend holding Piqray at this time -IV pain meds converted to oral pain med regimen. OxyContin IR 10 mg q4hrs prn ordered. At todays visit patient is reporting good pain control on current regimen. Oxycontin sent to pharmacy on file for discharge. Bowel regimen discussed in detail with pt for prevention of narcotic induced constipation -Encouraged increasing oral intake and activity as tolerated. -Pt is cleared for discharge from hem/onc standpoint once cleared by IM and other consulted medical specialities #Metastatic breast cancer -Currently on Piqray and Faslodex -She has not been able to tolerate full dose Piqray due to persistent diarrhea -If abdominal pain is in fact from Piqray, she was on the lowest dose recommended at 200 mg daily -She has clinic visit on 04/19/2023 to review whether this should be continued or not
[2023-04-12] MEDS ORDERED: DOCUSATE 100 MG CAP PO SCH (09:00)
== END 2023-04-11 14:05 | disposition home or self-care (01) | DRG 389 ==
LOC: EC 20:54 → 6NMEDSUR 04-07 00:52 → OBSVTOIN 04-07 00:52 → 6NMEDSUR 04-07 04:09
PROVIDERS: ADMIT Internal Medicine; ATTEND Internal Medicine
DX: K56.7 Ileus, unspecified (principal); C78.00 Secondary malignant neoplasm of unspecified lung; C79.81 Secondary malignant neoplasm of breast; E87.20 Acidosis, unspecified; E87.0 Hyperosmolality and hypernatremia; K51.90 Ulcerative colitis, unspecified, without complications; C79.51 Secondary malignant neoplasm of bone; K63.89 Other specified diseases of intestine; C50.919 Malignant neoplasm of unspecified site of unspecified female breast; E83.42 Hypomagnesemia; E87.6 Hypokalemia; G44.209 Tension-type headache, unspecified, not intractable; K21.9 Gastro-esophageal reflux disease without esophagitis; Z79.811 Long term (current) use of aromatase inhibitors; Z86.718 Personal history of other venous thrombosis and embolism; Z87.442 Personal history of urinary calculi; Z90.13 Acquired absence of bilateral breasts and nipples; Z90.710 Acquired absence of both cervix and uterus; Z79.899 Other long term (current) drug therapy; Z82.49 Family history of ischemic heart disease and other diseases of the circulatory system; Z85.3 Personal history of malignant neoplasm of breast; Z88.1 Allergy status to other antibiotic agents; Z91.041 Radiographic dye allergy status; Z91.02 Food additives allergy status; K52.9 Noninfective gastroenteritis and colitis, unspecified; R33.8 Other retention of urine; Z98.41 Cataract extraction status, right eye; Z87.440 Personal history of urinary (tract) infections; Z88.5 Allergy status to narcotic agent; Z88.8 Allergy status to other drugs, medicaments and biological substances
CPT/HCPCS: 36415; 51702; 51798; 74019; 74176; 80048; 80053; 81003; 82150; 83605; 83690; 83735; 85025; 85027; 87324; 96361; 96374; 96375; 96376; 99285

== ENCOUNTER → 2023-05-08 | Outpatient (CLI) | payer OTHER ==
[2023-05-08 09:49] LABS: African American GFR (CKD) >90 (>60 ml/min/1.73 sqM); Blood Urea Nitrogen 11 mg/dL (7-17); Non-African American GFR(CKD) >90 (>60 ml/min/1.73 sqM)
--- NOTE | 2023-05-08 11:01 | CT ---
EXAMINATION TYPE: CT ChestAbdPelvis w con DATE OF EXAM: 05/08/2023 COMPARISON: HISTORY: breast ca CT DLP: 1420 mGycm Automated exposure control for dose reduction was used. CONTRAST: CT scan of the chest, abdomen and pelvis is performed with Oral Contrast and with IV Contrast, patien t injected with 100 mL of Isovue 300. FINDINGS: CHEST: CHEST WALL: There are bilateral mastectomies. Left-sided Mediport has its catheter tip in the superio r vena cava and unchanged. Mediastinum and Lisa: Left axillary lymph node measures 2.6 x 1.9 cm in diameter and is very similar to the previous examination. Additional subpectoral lymph node on the left side measures 1 cm in shor t axis diameter and is not significant change. Several subcentimeter paratracheal lymph nodes are unc hanged. Subcarinal lymph node measures 1.8 cm in short axis diameter and is unchanged. Right infrahil ar mass that appears to be obstructing the right mainstem bronchus measures approximately 3.2 x 2.5 c m in diameter and is very similar to the previous examination. There is atelectasis of the right lowe r lobe. Pleural and Pericardial spaces: Trace right pleural effusion. Cardiovascular: The thoracic aorta is normal in size without evidence of aneurysm or dissection. Pulmonary Artery: There are no central pulmonary arterial filling defects. Lung Parenchyma and Airways: There is some mild patchy parenchymal changes within the posterior aspec t of the right upper lobe just anterior to the right lower lobe atelectasis which is similar to the p revious examination and may be due to an inflammatory or chronic atypical infectious process. The lef t lung is clear. ABDOMEN: Liver and Biliary system: Subcentimeter hypodensity in the left lobe of liver is too small fully jaylyn racterize and unchanged. There appears to be a new hypoattenuating nodule within segment 8 of the delbert er measuring 8.8 mm in diameter when compared to the examination of 05/18/2022.. Adrenal glands: Normal. Kidneys and ureters: Unchanged parapelvic cyst within the right kidney measuring approximately 1.9 c m in diameter. The kidneys otherwise appear unremarkable. Spleen: Normal. Pancreas: Normal. Gallbladder: Normal. Lymph nodes, Peritoneum and mesentery: There is no mesenteric or retroperitoneal lymphadenopathy. Gastrointestinal tract: There are no dilated loops of bowel or free intraperitoneal air. . The appe ndix is not clearly seen with no secondary changes of appendicitis otherwise identified. Aorta/IVC: There is significant vascular calcification throughout the abdominal aorta without evide nce of aneurysmal dilation or dissection.. IVC normal. Abdominal wall: Normal. PELVIS: Fluid: There is no free fluid in the pelvis. Lymph Nodes: There is no pelvic or inguinal lymphadenopathy.. Urinary bladder: Normal. BONES: There is extensive osteosclerotic metastatic disease throughout the chest, abdomen and pelvis in a similar distribution and degree to previous examination. Prior surgical changes are seen within the left proximal femur are unchanged. ADDITIONAL SIGNIFICANT FINDINGS: None. IMPRESSION: 1. Similar appearance to the extensive osteosclerotic metastatic disease. 2. Similar appearance to the adenopathy within the chest. 3. Similar appearance to the obstructing mass within the right in stem bronchus with right lower lobe atelectasis. 4. New hypoattenuating nodule in the right lobe of liver could represent a new metastasis. 5. Trace right pleural effusion.
--- NOTE | 2023-05-08 14:41 | NM ---
EXAMINATION TYPE: NM bone scan whole body DATE OF EXAM: 05/08/2023 2:27 PM CLINICAL INDICATION:Female, 67 years old with history of C50.312 BREAST CANCER; COMPARISON: 06/05/2022., 05/08/2023. TECHNIQUE: Intravenous administration 23.1 mCi Tc 99m MDP followed by multiple scintigraphic images o f the appendicular and axial skeleton. Additionally, small field of view planar anterior and posterio r images of the lumbosacral spine and pelvis. Lastly, coronal, transverse, and sagittal SPECT images of the lumbosacral spine and pelvis were generated for review.Lastly, small cnuve-iv-ysoc anterior, p osterior and lateral views of the chest were submitted for review. Images acquired 4 hours post injection. FINDINGS: Abnormal uptake is seen scattered throughout the osseous structures. Findings include right humerus, pelvis, ribs, spine and calvarium. There is increased uptake within the bilateral shoulder, sternoclavicular, and sacroiliac joints con sistent with degenerative changes. No other photopenic areas or areas of increased activity are ident ified. Physiologic radiotracer activity is demonstrated in the kidneys and bladder. IMPRESSION: Diffuse osseous osteoblastic metastatic disease. Findings not significantly changed from prior given differences in technique.
== END | disposition home or self-care (01) ==
LOC: RADNMMAIN 08:54
PROVIDERS: ATTEND Internal Medicine Hematology & Oncology
DX: C50.312 Malignant neoplasm of lower-inner quadrant of left female breast (principal); C79.51 Secondary malignant neoplasm of bone; G89.3 Neoplasm related pain (acute) (chronic); R59.0 Localized enlarged lymph nodes; J98.11 Atelectasis; R91.8 Other nonspecific abnormal finding of lung field; J90 Pleural effusion, not elsewhere classified; K76.9 Liver disease, unspecified; Z17.0 Estrogen receptor positive status [ER+]
CPT/HCPCS: 82565; 84520; 71260; 74177; 36415; 78306; A9503; J1642; Q9967

== ENCOUNTER → 2024-05-05 | Outpatient (CLI) | payer MEDICARE, BC ==
[2024-05-05 11:09] LABS: African American GFR (CKD) 83 (>60 ml/min/1.73 sqM); Blood Urea Nitrogen 14 mg/dL (7-17); Non-African American GFR(CKD) 72 (>60 ml/min/1.73 sqM)
--- NOTE | 2024-05-05 15:02 | NM ---
EXAMINATION TYPE: NM bone scan whole body DATE OF EXAM: 05/05/2024 2:54 PM CLINICAL INDICATION:Female, 68 years old with history of C50.312 breast cancer; COMPARISON: CT same day TECHNIQUE: Intravenous administration 17.5 mCi Tc 99m MDP followed by multiple scintigraphic images o f the appendicular and axial skeleton. FINDINGS: Diffuse osseous uptake seen throughout the skeleton correlating with sclerotic lesions on same day CT . There is increased uptake within the bilateral shoulder, sternoclavicular, and sacroiliac joints c onsistent with degenerative changes. No other photopenic areas or areas of increased activity are amina ntified. Physiologic radiotracer activity is demonstrated in the kidneys and bladder. IMPRESSION: Diffuse osseous metastatic disease as seen on same day CT.. [facility], , 05/05/2024 3:00 PM
--- NOTE | 2024-05-05 16:48 | CT ---
EXAMINATION TYPE: CT ChestAbdPelvis w con CT DLP: 557 mGycm, Automated exposure control for dose reduction was used. DATE OF EXAM: 05/05/2024 12:24 PM COMPARISON: CT chest abdomen and pelvis 05/08/2023, CT abdomen and pelvis 04/06/2023, nuclear medicin e bone scan 05/05/2024, 05/08/2023 CLINICAL INDICATION:Female, 68 years old with history of C50.312 breast cancer; [facility], Follow up for br east cancer with mets. Technique: Multiple axial images of the chest, abdomen, and pelvis were obtained following the intrav enous administration of 100 mL Isovue-300. Oral contrast was administered. Two-dimensional coronal an d sagittal reconstructions were obtained. Findings: CHEST: LUNGS/ PLEURA: No pleural effusion or pneumothorax. Stable right posterior perihilar 2.5 x 2.2 cm het erogenous enhancing mass (series 3, image 82). Similar patchy reticular opacities within the right po sterior lower lung. May represent inflammatory or chronic atypical infectious process. Left lung is c lear. Similar atelectasis of the right lower lobe. Stable 2 adjacent nodules within the posterior rig ht midlung measuring up to 6 mm (series 5, image 28 and 29). No new or enlarging pulmonary nodules. AIRWAY: There is again collapse of the right lower lobe bronchus with postobstructive atelectasis fro m hilar mass. Remaining airways are patent. HEART: Size within normal limits.No pericardial effusion. Small aortic valvular calcifications. Small coronary artery calcifications. MEDIASTINUM: Stable subcarinal enlarged lymph node measuring 1.8 cm (series 3, image 26). VASCULATURE: No aortic aneurysm. Left chest Mediport catheter with distal tip terminating in the hig h SVC. MUSCULOSKELETAL: No acute osseous abnormalities. Right shoulder arthropathy. Extensive sclerotic osse ous lesions throughout the visualized osseous structures redemonstrate appears similar to prior exam. DISH of the thoracic spine. SOFT TISSUES/LYMPH NODES: Postsurgical changes from bilateral mastectomy. Stable enlarged left axilla ry lymph node with some calcifications measuring 2.5 x 1.7 cm (series 3, image 18). Stable enlarged l eft subpectoral lymph node measuring 1 cm short axis (series 3, image 13). LOWER NECK: No significant findings. ABDOMEN: ABDOMEN LIVER: Multiple stable subcentimeter hypoattenuating structures are demonstrated throughout the liver . GALLBLADDER AND BILE DUCTS: Unremarkable. PANCREAS: Unremarkable. SPLEEN: Unremarkable. Stable accessory splenules. ADRENAL GLANDS: Unremarkable. KIDNEYS AND URETERS: No evidence of hydronephrosis or renal calculus. The kidneys enhance symmetrical ly. Stable right renal sinus cysts measuring up to 2.3 cm. PELVIS BLADDER: Unremarkable REPRODUCTIVE: The uterus is surgically absent. No suspicious adnexal mass. ABDOMEN & PELVIS STOMACH AND BOWEL: Stomach and duodenum are unremarkable. No focal wall thickening. Enteric contrast reaches the ascending colon. Mild colonic stool burden. No evidence of bowel obstruction. PERITONEUM: No evidence of pneumoperitoneum or free fluid. VASCULATURE: Mild to moderate atherosclerotic calcifications are present throughout the abdominal aor ta and its branches. No abdominal aortic aneurysm. Left-sided pelvic phlebolith. MUSCULOSKELETAL: No acute osseous abnormalities. Postsurgical changes from left proximal femur fixati on hardware. Extensive sclerotic osseous lesions throughout the visualized osseous structures. Overal l similar to prior exam. LYMPH NODES: No evidence for lymphadenopathy. SOFT TISSUE/ABDOMINAL WALL: Unremarkable IMPRESSION: 1. Stable left axillary/subpectoral and mediastinal lymphadenopathy as well as right hilar mass with again collapse of the right lower lobe. Stable right lower lung pulmonary nodules. No new or enlargi ng pulmonary nodules. 2. Stable extensive osseous metastasis. [facility], , 05/05/2024 4:46 PM
== END | disposition home or self-care (01) ==
LOC: RADNMMAIN 10:09
PROVIDERS: ATTEND Internal Medicine Hematology & Oncology
DX: C50.312 Malignant neoplasm of lower-inner quadrant of left female breast (principal); G89.3 Neoplasm related pain (acute) (chronic); C79.51 Secondary malignant neoplasm of bone; Z17.0 Estrogen receptor positive status [ER+]; R91.8 Other nonspecific abnormal finding of lung field; R59.0 Localized enlarged lymph nodes; I70.0 Atherosclerosis of aorta; N28.1 Cyst of kidney, acquired; J98.19 Other pulmonary collapse
CPT/HCPCS: 82565; 84520; 71260; 74177; 36415; 78306; G0463; A9503; J1642; Q9967; 99213

== ENCOUNTER → 2024-08-17 | Outpatient (CLI) | payer MEDICARE, BC ==
[2024-08-17 08:55] LABS: African American GFR (CKD) >90 (>60 ml/min/1.73 sqM); Blood Urea Nitrogen 15 mg/dL (7-17); Non-African American GFR(CKD) 87 (>60 ml/min/1.73 sqM)
--- NOTE | 2024-08-17 11:49 | CT ---
EXAMINATION TYPE: CT ChestAbdPelvis w con DATE OF EXAM: 08/17/2024 11:11 AM COMPARISON: 05/05/2024. CLINICAL INDICATION: Female, 68 years old with history of C50.312, Z17.0, C79.51, G89.3, Breast ca w mets Technique: CT ChestAbdPelvis w con; Multiple axial images were obtained. Two-dimensional coronal and sagittal reconstructions were obtained. Contrast used:100ml mL of Isovue 300 with IV Contrast, (None if empty) Oral contrast used: with Oral Contrast CT DLP: 1012 mGycm, Automated exposure control for dose reduction was used. Findings: CHEST: LUNGS/ PLEURA: No pleural effusion or pneumothorax. * Similar right posterior perihilar 2.5 x 2.2 cm heterogenous enhancing mass possibly representing t he right lower lobe * Similar patchy reticular opacities within the right posterior lower lung. May represent inflammato ry or chronic atypical infectious process. * Left lung is clear. * Similar atelectasis of the right lower lobe. * Stable 2 adjacent nodules within the posterior right midlung measuring up to 6 mm possibly represe nting an intrafissural lymph nodes. * No new or enlarging pulmonary nodules. AIRWAY: There is again collapse of the right lower lobe bronchus with postobstructive atelectasis fro m hilar mass. Remaining airways are patent. HEART: Size within normal limits.No pericardial effusion. Small aortic valvular calcifications. Small coronary artery calcifications. MEDIASTINUM: Stable subcarinal enlarged lymph node measuring 1.7 cm. VASCULATURE: No aortic aneurysm. Left chest Mediport catheter with distal tip terminating in the hig h SVC. MUSCULOSKELETAL: No acute osseous abnormalities. Right shoulder arthropathy. Extensive sclerotic osse ous lesions throughout the visualized osseous structures redemonstrate appears similar to prior exam. DISH of the thoracic spine. SOFT TISSUES/LYMPH NODES: * Postsurgical changes from bilateral mastectomy. * Stable enlarged left axillary lymph node with some calcifications measuring 2.5 x 1.7 cm (series 3 , image 19). * Stable enlarged left subpectoral lymph node measuring 1.0 cm short axis (series 3, image 14). LOWER NECK: No significant findings. ABDOMEN: ABDOMEN LIVER: Multiple stable subcentimeter hypoattenuating structures are demonstrated throughout the liver . GALLBLADDER AND BILE DUCTS: Unremarkable. PANCREAS: Unremarkable. SPLEEN: Unremarkable. Stable accessory splenules. ADRENAL GLANDS: Unremarkable. KIDNEYS AND URETERS: No evidence of hydronephrosis or renal calculus. The kidneys enhance symmetrical ly. Stable right renal sinus cysts measuring up to 2.3 cm. PELVIS BLADDER: Unremarkable REPRODUCTIVE: The uterus is surgically absent. No suspicious adnexal mass. ABDOMEN & PELVIS STOMACH AND BOWEL: Stomach and duodenum are unremarkable. No focal wall thickening. Enteric contrast reaches the ascending colon. Mild colonic stool burden. No evidence of bowel obstruction. PERITONEUM: No evidence of pneumoperitoneum or free fluid. VASCULATURE: Mild to moderate atherosclerotic calcifications are present throughout the abdominal aor ta and its branches. No abdominal aortic aneurysm. Left-sided pelvic phlebolith. MUSCULOSKELETAL: No acute osseous abnormalities. Postsurgical changes from left proximal femur fixati on hardware. Extensive sclerotic osseous lesions throughout the visualized osseous structures. Overal l similar to prior exam. LYMPH NODES: No evidence for lymphadenopathy. SOFT TISSUE/ABDOMINAL WALL: Unremarkable IMPRESSION: 1. Stable left axillary/subpectoral and mediastinal lymphadenopathy as well as right hilar mass with again collapse of the right lower lobe. Stable right lower lung pulmonary nodules. No new or enlargi ng pulmonary nodules. 2. Grossly stable extensive osseous metastasis. [facility], , 08/17/2024 11:47 AM
--- NOTE | 2024-08-17 15:27 | NM ---
EXAMINATION TYPE: NM bone scan whole body DATE OF EXAM: 08/17/2024 COMPARISON: Prior whole-body bone scan May 05, [address] CLINICAL INDICATION: Female, 68 years old with history of C50.312, Z17.0, C79.51, G89.3; Delayed whole-body scanning was performed following the injection of 20.4 mCi Tc 99m MDP. Images acq uired 4 hours post injection. FINDINGS: Continued worsening of diffuse osseous metastatic disease with more prominent and new lesions through out the spine and bilateral ribs. Multiple lesions in the pelvis are redemonstrated. There are more p rominent lesions in the proximal right femur noted. The mid right humeral lesion is again seen. Poor excretion consistent with SuperScan is noted. IMPRESSION: Continued interval progression of diffuse osseous metastatic disease. [facility], , 08/17/2024 3:24 PM
== END | disposition home or self-care (01) ==
LOC: RADCTMAIN 08:20
PROVIDERS: ATTEND Internal Medicine Hematology & Oncology
DX: C50.312 Malignant neoplasm of lower-inner quadrant of left female breast (principal); Z17.0 Estrogen receptor positive status [ER+]; C79.51 Secondary malignant neoplasm of bone; G89.3 Neoplasm related pain (acute) (chronic); R91.8 Other nonspecific abnormal finding of lung field
CPT/HCPCS: 82565; 84520; 71260; 74177; 36415; 78306; A9503; Q9967